=== PATIENT | female | born 1950 | race Caucasian/White ===

== ENCOUNTER 2022-11-15 20:04 | Emergency (ER) | payer MEDICARE, SELFPAY ==
[2022-11-15] VITALS (7 sets, daily range): BP systolic 166–176; BP diastolic 72–85; PULSE 64–77; RESP 15–16; TEMP 36.6–36.7; O2SAT 95–99; BMI 23.2
--- NOTE | 2022-11-15 20:28 | CT_ITS ---
PROCEDURE INFORMATION: Exam: CT Right Lower Extremity Without Contrast, Hip Exam date and time: 11/15/2022 9:23 PM Age: 72 years old Clinical indication: Pain; Hip; Right; Prior surgery; Surgery date: 6+ months; Surgery type: Skin graft; Additional info: Inability to bear weight w/o pain TECHNIQUE: Imaging protocol: CT of the right lower extremity without contrast was performed. Exam focused on the hip. 3D rendering (Not supervised by radiologist): MIP and/or 3D reconstructed images were created by the technologist. Radiation optimization: All CT scans at this facility use at least one of these dose optimization techniques: automated exposure control; mA and/or kV adjustment per patient size (includes targeted exams where dose is matched to clinical indication); or iterative reconstruction. REPORTING DATA: Count of CT and Cardiac NM exams in prior 12 months: This patient has received 0 known CTs and 0 known cardiac nuclear medicine studies in the 12 months prior to the current study. COMPARISON: CR XR HIP RT 2-3V W/PELVIS 11/15/2022 9:08 PM FINDINGS: Bones/joints: Mild osteopenia. No acute fracture or dislocation. Soft tissues: Normal. Vasculature: Calcified aortic atherosclerosis. No aneurysm. IMPRESSION: Chronic changes without acute process.
--- NOTE | 2022-11-15 20:28 | XR_ITS ---
PROCEDURE INFORMATION: Exam: XR Right Hip Exam date and time: 11/15/2022 9:08 PM Age: 72 years old Clinical indication: Hip pain; Right hip; Prior surgery; Surgery type: Skin graft; Additional info: Pain/difficulty bearing weight TECHNIQUE: Imaging protocol: Radiologic exam of the right hip. Views: 2 or 3 views hip with pelvis when performed. COMPARISON: No relevant prior studies available. FINDINGS: Bones/joints: No acute fracture. Soft tissues: Unremarkable. IMPRESSION: No acute findings.
[2022-11-15 20:46] LABS: Basophils # 0.1 K/mm3 (0-0.2); Eosinophils # 0.1 K/mm3 (0.0-0.4); Eosinophils % 2.1 % (0.1-12.0); Hemoglobin 12.9 g/dL (12.2-16.2); Lymphocytes # 1.9 K/mm3 (0.7-4.5); Lymphocytes % 27.9 % (10-50); Mean Corpuscular HGB Conc 32.4 g/dL (31.8-35.4); Mean Corpuscular Hemoglobin 28.9 pg (27.0-31.2); Mean Corpuscular Volume 89.3 fl (81-99); Mean Platelet Volume 9.4 fl (7.4-10.4); Monocytes # 0.4 K/mm3 (0.1-1.0); Monocytes % 5.3 % (1.7-9.3); Neutrophils # 4.4 K/mm3 (1.8-7.8); Neutrophils % 63.8 % (37.0-80.0); Platelet Count 185 K/mm3 (142-424); Red Blood Count 4.48 M/mm3 (4.20-5.40); Red Cell Distribution Width 13.7 % (11.5-17.5); White Blood Count 6.8 K/mm3 (4.8-10.8)
--- NOTE | 2022-11-15 20:49 | PC.NURSE ---
attempted x 2 to obtain iv access. Labs collected and sent.
[2022-11-15 20:51] LABS: Chloride 101 mmol/L (98-107); Potassium 4.2 mmoL/L (3.5-5.1); Sodium 140 mmol/L (136-145)
[2022-11-15 20:54] LABS: Alanine Aminotransferase 18 U/L (12-78); Albumin Level 4.5 g/dl (3.5-5.0); Albumin/Globulin Ratio 1.4 (1.1-1.8); Alkaline Phosphatase 40 U/L (38-126); Anion Gap 12.2 mEq/L (5-15); Aspartate Amino Transferase 35 U/L (14-36); Bilirubin,Total 0.6 mg/dl (0.2-1.3); Blood Urea Nitrogen 19 mg/dl (7-17); Carbon Dioxide 31 mmol/L (22.0-30.0); Creatinine Clearance Estimated 46 mL/min (50-200); Estimated Glomerular Filt Rate 70 ml/min (>60); GFR (African American) 85 ML/MIN (>60); Globulin 3.3 g/dL (1.3-3.2); Total Protein,Serum 7.8 g/dl (6.3-8.2)
[2022-11-15 20:55] LABS: Calcium 9.1 mg/dl (8.4-10.2); Glucose 135 mg/dl (74-100)
--- NOTE | 2022-11-15 23:43 | PC.NURSE ---
in room talking with patient at this time.
--- NOTE | 2022-11-15 23:49 | HMH.EDGENADL ---
Discharge Plan Disposition Patient Disposition: Home, Self-Care Prescriptions Prescriptions: New prednisone [prednisone] 20 mg tablet 20 mg PO BID Qty: 10 0RF No Action colestipol 5 gram Packet 5 g PO DAILYP PRN (Reason: per protocol) Referrals Follow up/Referrals: Nevin Hameed APRN [Primary Care Provider] - See instructions Clinical Impressions Clinical Impression: Acute hip pain Instructions Patient Instructions: DI for Hip Pain Discharge ED Provider: Janna (ED)Juan Manuel General Adult HPI General Chief complaint: PAIN Stated complaint: RT hip pain, forgetfulness Time Seen by Provider: 11/15/22 23:49 Mode of Arrival: Family Vehicle Source of Information: Patient, Relative and Medical Record Limitations: No Limitations Description of Symptoms (Recalled from ER Triage Doc. by RN): 72 yo female presents with chief complaint of right hip pain. According to the patient and her daughter, she attempted to turn to the right to maneuver in or out of the vehicle when she felt a significant pain that has impeded her ability to bear weight on that side. Patient is alert, oriented, reports no acute injury that she is aware of. Would like to have the hip evaluated for the pain onset and inability to maneuver. Patient daughter also mentioned that she needs to see her pcp (nevin) for short term memory issues. History of Present Illness HPI narrative: ongoing rt hip pain worse tonight with pain and dec wt bearing - no fever or fall Onset (ago): hour(s) Location: lower extremity (rt hip ) Severity: moderate Consistency: intermittent Exacerbating factors: movement Associated symptoms: denies other symptoms Related Data Home Medications Medication Instructions Recorded Confirmed colestipol 5 gram oral packet 5 g PO DAILYP PRN per protocol 11/15/22 11/15/22 Previous Rx's Medication Instructions Recorded prednisone 20 mg tablet 20 mg PO BID #10 tabs 11/15/22 Allergies Allergy/AdvReac Type Severity Reaction Status Date / Time No Known Allergies Allergy Verified 11/15/22 20:24 [facility] Disclaimer: The information contained in this section may have been updated after the patient was seen, as this information can be updated by other users. Social History Smoking Status: Never smoker alcohol intake: never current occupational status: retired Travel in the last 8 weeks: None ROS Obtained: Yes All systems reviewed & no additional complaints except as documented Physical Exam General General appearance: alert Head Head exam: normocephalic Eye Eye exam: Present PERRL and EOMI ENT ENT exam: Present mucous membranes moist Neck Neck exam: Present trachea midline Respiratory Respiratory exam: Absent respiratory distress Cardiovascular Cardiovascular exam: Present regular rate Abdominal Exam Abdominal exam: Present soft Expanded Lower Extremity Exam Right: Hip/Pelvis exam: Present tenderness, pelvis stable and hip pain on leg movement; Absent full ROM, deformity, dislocation, external rotation, internal rotation or pain on hip/pelvis palpation Neurovascular/Tendon exam: Absent pulse deficit, motor deficit or sensory deficit Neurological Exam Neurological exam: Present alert, oriented X3 and CN II-XII intact; Absent motor sensory deficit Skin Skin exam: Present intact Medical Decision Making Medical Records Medical records reviewed: Yes I reviewed the patient's medical records. Bill Inquiry Pt receiving controlled substance: No Vital Signs: 11/15/22 20:18 11/15/22 21:00 11/15/22 21:30 Temperature 98.0 F Temperature Source Oral Pulse Rate 68 65 Pulse Rate [Right Brachial] 77 Respiratory Rate 15 Blood Pressure 172/85 H 173/74 H Blood Pressure [Right Arm] 172/72 H Blood Pressure Mean 114 112 Blood Pressure Mean [Right Arm] 105 Blood Pressure Source [Right Arm] Automatic Cuff Blood Pressure Position [Right Arm] Sitting 02 Sat by
[2022-11-16 00:07] LABS: C-Reactive Protein 1.2 mg/L (0-4)
[2022-11-16 00:14] LABS: Erythrocyte Sedimentation Rate 17 mm/hr (0-30); Procalcitonin 0.066 ng/mL (0.0-2.0)
== END 2022-11-16 | disposition home or self-care (01) ==
PROVIDERS: Emergency Provider Emergency Medicine; PCP Nurse Practitioner Family
DX: M25.551 Pain in right hip (principal)
CPT/HCPCS: 73502; 73700; 80053; 84145; 85025; 85651; 86140; 96374; 96375; 99284; 99285

== ENCOUNTER → 2022-11-30 14:42 | Outpatient (CLI) | payer MEDICARE, SELFPAY ==
--- NOTE | 2022-11-30 14:49 | MR_ITS ---
FINAL REPORT CLINICAL HISTORY: PAIN IN RIGHT HIP JOINT COMPARISON: None FINDINGS: Multiplanar MR imaging of the right hip was performed with and without contrast. There is no evidence of fracture or dislocation. There is no evidence of avascular necrosis. No bony mass is identified. No labral tear is identified. Small bilateral hip joint effusions are seen. The tendons are intact. Mild increased T2 signal bilateral adductor musculature worrisome for mild muscular injury or myositis. No soft tissue mass or cyst is identified. There is no abnormal contrast enhancement. IMPRESSION: Possible muscle injury or myositis. Small bilateral hip joint effusions. Reviewed, Interpreted and Dictated by Jaron Giordano III, MD Transcribed by Sharri Sow Authenticated and [facility]
== END ==
PROVIDERS: PCP Nurse Practitioner Family; Visit Provider Nurse Practitioner Family
DX: M25.551 Pain in right hip (principal)
CPT/HCPCS: 73723; A9576

== ENCOUNTER → 2023-01-09 12:02 | Outpatient (CLI) | payer MEDICARE, SELFPAY ==
[2023-01-09 12:19] LABS: Microscopic, Urine URINE MICROSCOPIC (MICROSCOPIC)
--- NOTE | 2023-01-09 12:47 | MR_ITS ---
FINAL REPORT TECHNIQUE: Multiplanar and multisequence imaging of the brain was obtained before and after contrast injection. CLINICAL HISTORY: Rule out mass, lesion, metastasis. memory loss FINDINGS: There is no mass effect or midline shift. Small foci of periventricular and subcortical white matter are nonspecific. T2 abnormal signal noted in the uriel. No hydrocephalus. The cerebellum and brainstem have a normal appearance. There are no areas of restricted diffusion on diffusion weighted images to suggest acute infarct. Soft tissues are without acute abnormality. Post contrast images reveal no pathologic contrast enhancement. IMPRESSION: No acute intracranial abnormality and no pathologic contrast enhancement. Periventricular and subcortical T2 abnormality, likely related to changes of chronic small vessel ischemia. Findings could represent demyelinating disease but is less likely. Reviewed, Interpreted and Dictated by Nuzhat Downey MD Transcribed by Juany Singh Authenticated and . [facility]
[2023-01-09 13:05] LABS: Appearance,Urine CLEAR (Clear); Bilirubin,Urine Negative (Negative); Blood, Urine Negative (Negative); Color,Urine YELLOW (Yellow); Glucose,Urine (UA) Negative (Negative); Ketones,Urine Negative (Negative); Leukocyte Esterase,Urine 1+ (Negative); Nitrate,Urine Negative (Negative); Protein,Urine Negative (Negative); Specific Gravity, Urine 1.025 (1.005-1.030); Urobilinogen,Urine 0.2 EU/dl (0.2)
[2023-01-09 13:06] LABS: Chloride 104 mmol/L (98-107); Potassium 4.7 mmoL/L (3.5-5.1); Sodium 141 mmol/L (136-145)
[2023-01-09 13:08] LABS: Blood Urea Nitrogen 13 mg/dl (7-17); Estimated Glomerular Filt Rate 82 ml/min (>60); GFR (African American) 99 ML/MIN (>60)
[2023-01-09 13:09] LABS: Alanine Aminotransferase 21 U/L (12-78); Albumin Level 4.2 g/dl (3.5-5.0); Albumin/Globulin Ratio 1.6 (1.1-1.8); Alkaline Phosphatase 44 U/L (38-126); Anion Gap 10.7 mEq/L (5-15); Aspartate Amino Transferase 32 U/L (14-36); Bilirubin,Total 0.4 mg/dl (0.2-1.3); Calcium 9.5 mg/dl (8.4-10.2); Carbon Dioxide 31 mmol/L (22.0-30.0); Chol/HDL Ratio 3.6 (1-3.5); Cholesterol 218 mg/dl (140-200); Globulin 2.7 g/dL (1.3-3.2); Glucose 111 mg/dl (74-100); HDL Cholesterol 61 mg/dl (40-60); Total Protein,Serum 6.9 g/dl (6.3-8.2); Triglycerides 168 mg/dl (30-150); VLDL Cholesterol 34 mg/dL (0-40)
[2023-01-09 13:15] LABS: C-Reactive Protein 0.7 mg/L (0-4)
[2023-01-09 13:39] LABS: Bacteria,Urine Trace /lpf; RBC,Urine Occasional #/hpf (0-3)
[2023-01-09 13:43] LABS: Thyroid Stimulating Hormone 1.13 uIU/mL (0.465-4.68)
[2023-01-09 14:05] LABS: Basophils % 0.8 % (0.1-2.0); Eosinophils # 0.1 K/mm3 (0.0-0.4); Eosinophils % 1.8 % (0.1-12.0); Hematocrit 35.8 % (37.0-47.0); Hemoglobin 11.6 g/dL (12.2-16.2); Lymphocytes # 1.2 K/mm3 (0.7-4.5); Lymphocytes % 27.5 % (10-50); Mean Corpuscular HGB Conc 32.5 g/dL (31.8-35.4); Mean Corpuscular Hemoglobin 28.9 pg (27.0-31.2); Mean Corpuscular Volume 88.7 fl (81-99); Mean Platelet Volume 9.7 fl (7.4-10.4); Monocytes # 0.3 K/mm3 (0.1-1.0); Monocytes % 6.4 % (1.7-9.3); Neutrophils # 2.7 K/mm3 (1.8-7.8); Neutrophils % 63.5 % (37.0-80.0); Platelet Count 167 K/mm3 (142-424); Red Blood Count 4.03 M/mm3 (4.20-5.40); Red Cell Distribution Width 13.8 % (11.5-17.5); White Blood Count 4.2 K/mm3 (4.8-10.8)
[2023-01-09 14:16] LABS: Vitamin B12 163 pg/mL (239-931)
[2023-01-09 16:38] LABS: Erythrocyte Sedimentation Rate 21 mm/hr (0-30)
[2023-01-10 12:09] LABS: Rapid Plasma Reagin Ab Titer Non Reactive (NonRea<1:1)
[2023-01-22 23:45] LABS: Antinuclear Antibodies (ANA) Negative
== END ==
PROVIDERS: PCP Nurse Practitioner Family; Visit Provider Nurse Practitioner Family
DX: N39.0 Urinary tract infection, site not specified (principal); R40.0 Somnolence; R41.3 Other amnesia; Z85.43 Personal history of malignant neoplasm of ovary; I70.0 Atherosclerosis of aorta; M25.559 Pain in unspecified hip; B96.4 Proteus (mirabilis) (morganii) as the cause of diseases classified elsewhere
CPT/HCPCS: 36415; 70553; 80053; 80061; 81001; 82607; 82746; 84443; 85025; 85651; 86038; 86140; 86225; 86235; 86593; 87086; 87088; 87186; 94762; A9576

== ENCOUNTER 2024-04-02 09:32 | Emergency (ER) | payer MEDICARE, SELFPAY ==
[2024-04-02] VITALS (9 sets, daily range): BP systolic 182–195; BP diastolic 68–94; PULSE 50–66; RESP 13; TEMP 36.7–36.8; O2SAT 98–100; BMI 23.8
--- NOTE | 2024-04-02 09:44 | PC.NURSE ---
DR LAM AT BEDSIDE
[2024-04-02 10:10] LABS: Chloride 108 mmol/L (98-107); Sodium 139 mmol/L (136-145)
[2024-04-02 10:12] LABS: Alanine Aminotransferase 17 U/L (12-78); Aspartate Amino Transferase 33 U/L (14-36); Blood Urea Nitrogen 18 mg/dl (7-17); Creatinine Clearance Estimated 45 mL/min (50-200); Estimated Glomerular Filt Rate 82 ml/min (>60); GFR (African American) 99 ML/MIN (>60)
[2024-04-02 10:13] LABS: Albumin/Globulin Ratio 1.4 (1.1-1.8); Alkaline Phosphatase 49 U/L (38-126); Bilirubin,Total 0.7 mg/dl (0.2-1.3); Carbon Dioxide 29 mmol/L (22.0-30.0); Globulin 2.8 g/dL (1.3-3.2); Glucose 86 mg/dl (74-100); Magnesium 1.9 mg/dl (1.6-2.3); Total Protein,Serum 6.8 g/dl (6.3-8.2)
[2024-04-02 10:14] LABS: Microscopic, Urine URINE MICROSCOPIC (MICROSCOPIC)
--- NOTE | 2024-04-02 10:15 | ECG_ITS ---
APPROVED REPORT Exam: Resting ECG HR:48 bpm ECG Measurements Heart Rate 48 AXES WY 136 P 71 QRSd 103 QRS 75 QT 453 T 76 QTc 421 Conclusion SINUS BRADYCARDIA ABNORMAL ECG Electronically signed by : Latrell Negrete, 04/02/2024 16:13:10
[2024-04-02 10:18] LABS: Basophils # 0.1 K/mm3 (0-0.2); Basophils % 1.1 % (0.1-2.0); Eosinophils # 0.1 K/mm3 (0.0-0.4); Eosinophils % 1.7 % (0.1-12.0); Hematocrit 38.4 % (37.0-47.0); Hemoglobin 12.7 g/dL (12.2-16.2); Lymphocytes # 1.1 K/mm3 (0.7-4.5); Lymphocytes % 23.7 % (10-50); Mean Corpuscular Hemoglobin 29.8 pg (27.0-31.2); Mean Corpuscular Volume 90.5 fl (81-99); Mean Platelet Volume 9.8 fl (7.4-10.4); Monocytes # 0.3 K/mm3 (0.1-1.0); Monocytes % 6.9 % (1.7-9.3); Neutrophils % 66.6 % (37.0-80.0); Platelet Count 178 K/mm3 (142-424); Red Blood Count 4.25 M/mm3 (4.20-5.40); Red Cell Distribution Width 13.9 % (11.5-17.5); White Blood Count 4.6 K/mm3 (4.8-10.8)
[2024-04-02 10:21] LABS: Appearance,Urine CLEAR (Clear); Bilirubin,Urine Negative (Negative); Blood, Urine Negative (Negative); Color,Urine YELLOW (Yellow); Glucose,Urine (UA) Negative (Negative); Ketones,Urine Negative (Negative); Leukocyte Esterase,Urine 1+ (Negative); Nitrate,Urine Negative (Negative); Protein,Urine Negative (Negative); Urobilinogen,Urine 0.2 EU/dl (0.2)
--- NOTE | 2024-04-02 10:21 | HMH.EDGENADL ---
Discharge Plan Disposition Patient Disposition: Home, Self-Care Condition: Good Prescriptions Prescriptions: No Action colestipol 5 gram Packet 5 g PO DAILYP PRN (Reason: per protocol) Activity Restrictions/Add. Instructions Additional Instructions/Restrictions: Wear your Holter monitor and follow up results with your distributor publications. Stay well hydrated. Return to the ED if you develop chest pain, shortness of breath, or become concerned for your health. Please follow up with your primary care provider in 2-3 days. Please return to ED if your symptoms worsen, change in location, change in severity, new symptoms develop or if you become concerned for your health. Clinical Impressions Clinical Impression: Syncope Print Language Print Language: Czech Discharge ED Provider: Latrell Negrete General Adult HPI General Chief complaint: Fall Stated complaint: DIZZINESS Time Seen by Provider: 04/02/24 09:37 Mode of Arrival: EMS Source of Information: Patient Limitations: No Limitations Description of Symptoms (Recalled from ER Triage Doc. by RN): pt presents to ED via EMS for fall. pt reports that she began to feel dizzy, knew that she needed to sit down, was able to sit down before falling. pt was able to crawl to door to unlock it for her daughter to come into house. pt reports she does not remember falling, and did not hit her head. no loc, unknown blood thinner per pt report. History of Present Illness HPI narrative: Patient is a 74-year-old female no significant past medical history. She reports that this morning, she had a syncopal episode. She was sitting on the couch watching TV and stood up quickly to get something from the kitchen to drink as she realized that she had not eaten or drinking anything yet this morning. As she stood up, she began to feel lightheaded and have tunnel vision. She sat back down and began to feel fuzzy for a short time. She was able to crawl to the door and unlock it and open it and crawl back to the couch. She is unsure if she actually lost consciousness or not. She denies hitting her head, does not take any blood thinners. She denies any chest pain, shortness of breath, numbness, weakness, tingling, vision changes immediately preceding or after this incident. She is never experienced this before. Related Data Home Medications ?Medication ?Instructions ?Recorded ?Confirmed colestipol 5 gram oral packet 5 g PO DAILYP PRN per protocol 11/15/22 01/24/23 Allergies Allergy/AdvReac Type Severity Reaction Status Date / Time No Known Allergies Allergy Verified 01/24/23 15:07 [facility] Disclaimer: The information contained in this section may have been updated after the patient was seen, as this information can be updated by other users. Family History (Updated 12/13/22 @ 15:16 by Carina Cannon) Other Coronary artery disease Diabetes Heart attack Stroke Social History (Updated 12/13/22 @ 15:17 by Carina Cannon) Smoking Status: Never smoker alcohol intake: never substance use type: denies use current occupational status: retired Travel in the last 8 weeks: None household members: other housing: house marital status: ROS Obtained: Yes All systems reviewed & no additional complaints except as documented Physical Exam General General appearance: alert and in no apparent distress Head Head exam: atraumatic and normocephalic Eye Eye exam: Present PERRL and EOMI ENT ENT exam: Present normal oropharynx Neck Neck exam: Present full ROM and trachea midline Chest Chest inspection: Present symmetric chest wall rise Respiratory Respiratory exam: Present normal lung sounds bilaterally; Absent stridor Cardiovascular Cardiovascular exam: Present regular rate and normal rhythm Abdominal Exam Abdominal exam: Present soft; Absent distention or tenderness Extremities Exam Extremities exam: Present full ROM Neurological Exam Neurological exa
[2024-04-02 10:23] LABS: INR 0.92 (0.9-1.1); Prothrombin Time 10.4 seconds (10.1-12.5)
[2024-04-02 10:25] LABS: Troponin I < 0.01 ng/ml (0.00-0.034)
[2024-04-02 10:41] LABS: Bacteria,Urine Trace /lpf; Squamous Epithelial Cell,Urine Occasional #/hpf (0-5)
--- NOTE | 2024-04-02 10:49 | PC.NURSE ---
caitlin brown rounding on pt
== END 2024-04-02 12:25 | disposition home or self-care (01) ==
PROVIDERS: Emergency Provider Emergency Medicine; PCP Nurse Practitioner Family
DX: R55 Syncope and collapse (principal); R00.1 Bradycardia, unspecified; R42 Dizziness and giddiness
CPT/HCPCS: 80053; 81001; 83735; 84484; 85025; 85610; 87086; 93005; 93225; 93227; 99284; J7030

== ENCOUNTER 2025-07-25 12:01 | Inpatient (IN) | payer MEDICARE, SELFPAY ==
[2025-07-25] VITALS (13 sets, daily range): BP systolic 155–221; BP diastolic 79–93; PULSE 52–65; RESP 12–18; TEMP 36.5–36.8; O2SAT 90–100; BMI 23.6; BMI 20.9
--- OUTSIDE RECORDS SUMMARY | 2025-07-25 12:13 | XMS_ITS | Encounter Summary ---
Author Organization [facility] Address [address] [id number] Care Team Providers Care [employer] Name Role Phone Gita Hameed VETERINARY EPIDEMIOLOGIST Primary Care Provider [phone] Reason for Referral * Consultation (Routine) - Closed Specialty Diagnoses / Procedures Referred By Tosha nagy Referred To Contact Neurology Diagnoses Memory loss Nehemiah Odom APRN [address] [place] [address] Phone: tel: fax: [facility] [place] [facility] [address] [place] [id number] Phone: tel: fax: Referral ID Status Reason Start Date Expiration Date V isits Requested Visits Authorized [id number] Closed Specialty Services Required 01/25/2023 07/26/2024 1 1 Encounter Details Date Type Department Care Team (Late st Contact Info) Description 01/25/2023 Community Orders Community Practice [address] [place] [address] Nehemiah Odom APRN [address] [place] [address] Memory loss (Primary Dx) Social History Tobacco Use Types Packs/Day Years Used Date Smoking Tobacco: Never Assessed Comments Unknown Sex and Gender Information Value Date Recorded Sex Assigned at Not on file Legal Sex Female 8:41 AM EDT Gender Identity Not on file Sexual Orientation Not on file documented as of this encounter Plan of Treatment Scheduled Referrals Name Type Priority Associated Diagnoses Order Schedule Ambulatory referral to Neurology Memory Clinic Outpatient Referral Routine Memory loss Expected: 01/25/2023 (Approximate), Expires: 07/27/2024 documented as of this encounter Visit Diagnoses Diagnosis Memory loss- Primary documented in this encounter Care Teams [employer] Relationship Specialty Start Date End Date Gita Hameed APRN [address] [place] [address] PCP - General 05/09/24 documented as of this encounter
--- OUTSIDE RECORDS SUMMARY | 2025-07-25 12:13 | XMS_ITS | Data Portability ---
Author Organization [facility] Address [address] [place] [address] Care Team Providers Care Wire Annealer Name Role Phone BANDAR CORBYLAMBERTOAlexandria Primary Care Provider [phone] Assessment No assessment recorded. Plan of Treatment Reminders Order Date Submit Date Provider Last Modified By Organization Details Last Modified Time Details Appointments None recorded. Lab BNP (B-type natriuretic peptide), serum or plasma 2024 025 JAMES [facility], [address], [address], [place], [address], 5 10:08:05 CMP, serum or plasma 2024 025 JAMES [facility], [address], [address], [place], [address], 5 10:08:03 TSH + free T4, serum 2024 025 JAMES [facility], [address], [address], [place], [address], 5 10:08:02 renal function panel, serum 2024 025 JAMES [facility], [address], [address] [address], [place], [address], 5 10:08:04 glucose, fingerstick , blood 2023 024 [facility], [address] [facility], [place], [address], 4 09:39:35 CMP, serum or plasma 2023 JENKINS [facility], [address], [address], [place], [address], 4 00:06:19 urinalysis, dipstick 2023 [facility], [address] [place] [address], [id number], 4 12:18:57 culture, urine 2023 024 JENKINS [facility], [address], [address], [place], [address], 4 00:06:19 CBC w/ auto diff 2023 024 JENKINS [facility], [address], [address] [address], [place], [address], 4 00:06:18 Referral None recorded. Procedures None recorded. Surgeries None recorded. Imaging electrocard iogram 2023 [facility], [address] [place] [address], [phone], 4 10:01:30 Medication Orders Normal Saline Flush 0.9 % injection syringe 2023 024 sofialer Not available 11:02:22 levofloxaci n 500 mg tablet 2023 [facility] [id number], [address] [place] [address], [address], 4 08:45:32 Patient TargetsNo targets recorded. Patient Instructions Encounter Date Encounter Id Patient Instructions Last Modified By Organization Details Last Modified Time 02/19/2024 [id number] leg and ankle edema: care instructions rosendo Not available 02/19/2024 11:38:29 Reason for Referral None Reported. Results Created Date Observation Date Name Description Value Unit Range Abnormal Flag Note LastModifiedBy Organization Detail LastModifiedTime 01/26/20 24 01/30/2024 URINE CULTU RE, ROUTI NE urine culture, routine Final report abnormal Not Available [facility] ([facility]) [address] [facility], [place], [address], 01/30/2024 15:08:01 01/26/20 24 01/30/2024 URINE CULTU RE, ROUTI NE result 1 Klebsi jerald oxytoc a abnormal 10,00 0-25, 000 colon y formi ng units per mL Not Available [facility] ([facility]) [address] [facility], [place], [address], 01/30/2024 15:08:01 01/26/20 24 01/30/2024 URINE CULTU RE, ROUTI NE antimicrobia l susceptibili ty Commen t S = Susce ptibl e; I = Inter media te; R = Resis tant P = Posit rema; N = Negat rema MICS are expre ssed in micro grams per mL Antib iotic RSLT# 1 RSLT# 2 RSLT# 3 RSLT# 4 Amoxi cilli n/Cla vulan ic Acid S Ampic illin R Cefaz erik R Cefep luther S Ceftr iaxon e S Cefur oxime S Cipro floxa daisha S Genta micin S Imipe nem S Levof loxac in S Merop enem S Nitro furan toin S Tetra cycli ne S Tobra mycin S Trime thopr im/Guzman lfa S Not Available [facility] ([facility]) [address] [facility], [place], [address], 01/30/2024 15:08:01 01/26/20 24 01/26/2024 urina lysis , dipst ick Leukocytes Small Not Available Andrea [address], [address], 01/26/2024 10:12:42 01/26/20 24 01/26/2024 urina lysis , dipst ick Nitrite negati ve Not Available [address], [address], 01/26/2024 10:12:42 01/26/20 24 01/26/2024 urina lysis , dipst ick Urobilinogen .2 Not Available To[address]ito [address], [address], 01/26/2024 10:12:42 01/26/20 24 01/26/2024 urina lysis , dipst ick Protein Negati ve Not Available [address], [address], 01/26/2024 10:12:42 01/26/20 24 01/26/2024 urina lysis , dipst ick pH 5.5 Not Available [address], [address], 01/26/2024 10:12:42 01/26/20 24 01/26/2024 urina lysis , dipst ick Blood Negati ve Not Available [address], [address], 01/26/2024 10:12:42 01/26/20 24 01/26/2024 urina lysis , dipst ick Specific [place] 1.010 Not Available [address], [address], 01/26/2024 10:12:42 01/26/20 24 01/26/2024 urina lysis , dipst ick Ketone Negati ve Not Available [address], [address], 01/26/2024 10:12:42 01/26/20 24 01/26/2024 urina lysis , dipst ick Bilirubin Negati ve Not Available [address], [address], 01/26/2024 10:12:42 01/26/20 24 01/26/2024 urina lysis , dipst ick Glucose Negati ve Not Available [address], [address], 01/26/2024 10:12:42 01/26/20 24 01/26/2024 urina lysis , dipst ick Appearance Clear Not Available [address], [address], 01/26/2024 10:12:42 01/26/20 24 01/26/2024 urina lysis , dipst ick Color Yellow Not Available [address], [address], 01/26/2024 10:12:42 02/19/20 24 02/20/2024 CBC WITH DIFFE RENTI AL/PL ATELE T WBC 4.4 x10e3 /uL 3.4-10 .8 Not Available [facility] ([facility]) [address] [place], [address], 02/21/2024 00:06:18 02/19/20 24 02/20/2024 CBC WITH DIFFE RENTI AL/PL ATELE T RBC 4.30 x10e6 /uL 3.77-5 .28 Polyc hroma alexandra prese nt Ovalo cytes prese nt. Not Available [facility] ([facility]) [address] [facility], [place], [address], 02/21/2024 00:06:18 02/19/20 24 02/20/2024 CBC WITH DIFFE RENTI AL/PL ATELE T hemoglobin 12.3 g/dL 11.1-1 5.9 Not Available [facility] ([facility]) [address] [facility], [place], [address], 02/21/2024 00:06:18 02/19/20 24 02/20/2024 CBC WITH DIFFE RENTI AL/PL ATELE T hematocrit 39.6 % 34.0-4 6.6 Not Available [facility] ([facility]) [address] [facility], [place], [address], 02/21/2024 00:06:18 02/19/20 24 02/20/2024 CBC WITH DIFFE RENTI AL/PL ATELE T MCV 92 fL 79-97 Not Available [facility] ([facility]) [address] [facility], [place], [address], 02/21/2024 00:06:18 02/19/20 24 02/20/2024 CBC WITH DIFFE RENTI AL/PL ATELE T MCH 28.6 pg 26.6-3 3.0 Not Available [facility] ([facility]) [address] [place], [address], 02/21/2024 00:06:18 02/19/2002/20/2024 CBC WITH DIFFE RENTI AL/PL ATELE T MCHC 31.1 g/dL 31.5-3 5.7 below low normal Not Available [facility] ([facility]) [address] [place], [address], 02/21/2024 00:06:18 02/19/20 24 02/20/2024 CBC WITH DIFFE RENTI AL/PL ATELE T RDW 13.1 % 11.7-1 5.4 Not Available [facility] ([facility]) [address] [place], [address], 02/21/2024 00:06:18 02/19/20 24 02/20/2024 CBC WITH DIFFE RENTI AL/PL ATELE T platelets 133 x10e3 /uL 150-45 0 below low normal Actua l plate let count may be somew hat highe r than repor amelia due to aggre gatio n of plate lets in this sampl e. Not Available [facility] ([facility]) [address] [facility], [place], [address], 02/21/2024 00:06:18 02/19/20 24 02/20/2024 CBC WITH DIFFE RENTI AL/PL ATELE T neutrophils 64 % not estab. Not Available [facility] ([facility]) [address] [facility], [place], [address], 02/21/2024 00:06:18 02/19/20 24 02/20/2024 CBC WITH DIFFE RENTI AL/PL ATELE T lymphs 24 % not estab. Not Available [facility] ([facility]) [address] [facility], [place], [address], 02/21/2024 00:06:18 02/19/20 24 02/20/2024 CBC WITH DIFFE RENTI AL/PL ATELE T monocytes 9 % not estab. Not Available [facility] ([facility]) [address] [facility], [place], [address], 02/21/2024 00:06:18 02/19/20 24 02/20/2024 CBC WITH DIFFE RENTI AL/PL ATELE T eos 2 % not estab. Not Available [facility] ([facility]) [address] [facility], [place], [address], 02/21/2024 00:06:18 02/19/20 24 02/20/2024 CBC WITH DIFFE RENTI AL/PL ATELE T basos 1 % not estab. Not Available [facility] ([facility]) [address] [facility], [place], [address], 02/21/2024 00:06:18 02/19/20 24 02/20/2024 CBC WITH DIFFE RENTI AL/PL ATELE T immature cells MANAGER DATA Not Available [facility] ([facility]) [address] [facility], [place], [address], 02/21/2024 00:06:18 02/19/20 24 02/20/2024 CBC WITH DIFFE RENTI AL/PL ATELE T neutrophils (absolute) 2.8 x10e3 /uL 1.4-7. 0 Not Available [facility] ([facility]) [address] [facility], [place], [address], 02/21/2024 00:06:18 02/19/20 24 02/20/2024 CBC WITH DIFFE RENTI AL/PL ATELE T lymphs (absolute) 1.0 x10e3 /uL 0.7-3. 1 Not Available [facility] ([facility]) [address] [facility], [place], [address], 02/21/2024 00:06:18 02/19/20 24 02/20/2024 CBC WITH DIFFE RENTI AL/PL ATELE T monocytes(ab solute) 0.4 x10e3 /uL 0.1-0. 9 Not Available [facility] ([facility]) [address] [facility], [place], [address], 02/21/2024 00:06:18 02/19/20 24 02/20/2024 CBC WITH DIFFE RENTI AL/PL ATELE T eos (absolute) 0.1 x10e3 /uL 0.0-0. 4 Not Available [facility] ([facility]) [address] [facility], [place], [address], 02/21/2024 00:06:18 02/19/20 24 02/20/2024 CBC WITH DIFFE RENTI AL/PL ATELE T baso (absolute) 0.1 x10e3 /uL 0.0-0. 2 Not Available [facility] ([facility]) [address] [facility], [place], [address], 02/21/2024 00:06:18 02/19/20 24 02/20/2024 CBC WITH DIFFE RENTI AL/PL ATELE T immature granulocytes 0 % not estab. Not Available [facility] ([facility]) [address] [facility], [place], [address], 02/21/2024 00:06:18 02/19/20 24 02/20/2024 CBC WITH DIFFE RENTI AL/PL ATELE T immature grans (abs) 0.0 x10e3 /uL 0.0-0. 1 Not Available [facility] ([facility]) [address] [facility], [place], [address], 02/21/2024 00:06:18 02/19/20 24 02/20/2024 CBC WITH DIFFE RENTI AL/PL ATELE T NRBC MANAGER DATA Not Available [facility] ([facility]) [address] [facility], [place], [address], 02/21/2024 00:06:18 02/19/20 24 02/20/2024 CBC WITH DIFFE RENTI AL/PL ATELE T hematology comments: Note: Verif ied by coby moya nSunita Not Available [facility] ([facility]) [address] [facility], [place], [address], 02/21/2024 00:06:18 02/19/20 24 02/20/2024 COMP. METAB OLIC PANEL (14) glucose 83 mg/dL 70-99 Not Available [facility] ([facility]) [address] [facility], [place], [address], 02/21/2024 00:06:19 02/19/20 24 02/20/2024 COMP. METAB OLIC PANEL (14) BUN 7 mg/dL 8-27 below low normal Not Available [facility] ([facility]) [address] [facility], [place], [address], 02/21/2024 00:06:19 02/19/20 24 02/20/2024 COMP. METAB OLIC PANEL (14) creatinine 0.67 mg/dL 0.57-1 .00 Not Available [facility] ([facility]) [address] [place], [address], 02/21/2024 00:06:19 02/19/20 24 02/20/2024 COMP. METAB OLIC PANEL (14) eGFR 91 mL/mi n/1.7 3 >59 Not Available [facility] ([facility]) [address] [place], [address], 02/21/2024 00:06:19 02/19/20 24 02/20/2024 COMP. METAB OLIC PANEL (14) BUN/creatini ne ratio 10 12-28 below low normal Not Available [facility] ([facility]) [address] [place], [address], 02/21/2024 00:06:19 02/19/20 24 02/20/2024 COMP. METAB OLIC PANEL (14) sodium 142 mmol/ L 134-14 4 Not Available [facility] ([facility]) [address] [place], [address], 02/21/2024 00:06:19 02/19/20 24 02/20/2024 COMP. METAB OLIC PANEL (14) potassium 3.7 mmol/ L 3.5-5. 2 Not Available [facility] ([facility]) [address] [facility] [place] [place], [address], 02/21/2024 00:06:19 02/19/20 24 02/20/2024 COMP. METAB OLIC PANEL (14) chloride 104 mmol/ L 96-106 Not Available [facility] ([facility]) [address] [facility] [place], [address], 02/21/2024 00:06:19 02/19/20 24 02/20/2024 COMP. METAB OLIC PANEL (14) carbon dioxide, total 25 mmol/ L 20-29 Not Available [facility] ([facility]) [address] [facility] [place] [place], [address], 02/21/2024 00:06:19 02/19/20 24 02/20/2024 COMP. METAB OLIC PANEL (14) calcium 9.6 mg/dL 8.7-10 .3 Not Available [facility] ([facility]) [address], [place], [address], 02/21/2024 00:06:19 02/19/20 24 02/20/2024 COMP. METAB OLIC PANEL (14) protein, total 6.8 g/dL 6.0-8. 5 Not Available [facility] ([facility]) [address], [place], [address], 02/21/2024 00:06:19 02/19/20 24 02/20/2024 COMP. METAB OLIC PANEL (14) albumin 4.3 g/dL 3.8-4. 8 Not Available [facility] ([facility]) [address], [place], [address], 02/21/2024 00:06:19 02/19/20 24 02/20/2024 COMP. METAB OLIC PANEL (14) globulin, total 2.5 g/dL 1.5-4. 5 Not Available [facility] ([facility]) [address], [place], [address], 02/21/2024 00:06:19 02/19/20 24 02/20/2024 COMP. METAB OLIC PANEL (14) bilirubin, total 0.4 mg/dL 0.0-1. 2 Not Available [facility] ([facility] [address] [facility] [place] [place], [address], 02/21/2024 00:06:19 02/19/20 24 02/20/2024 COMP. METAB OLIC PANEL (14) alkaline phosphatase 56 IU/L 44-121 Not Available [facility] ([facility]) [address] [facility], [place], [address], 02/21/2024 00:06:19 02/19/20 24 02/20/2024 COMP. METAB OLIC PANEL (14) AST (SGOT) 17 IU/L 0-40 Not Available [facility] ([facility]) [address] [facility], [place], [address], 02/21/2024 00:06:19 02/19/20 24 02/20/2024 COMP. METAB OLIC PANEL (14) ALT (SGPT) 10 IU/L 0-32 Not Available [facility] ([facility]) [address] [facility], [place], [address], 02/21/2024 00:06:19 02/19/20 24 02/20/2024 URINE CULTU RE, ROUTI NE urine culture, routine Final report Not Available [facility] ([facility]) [address] [place], [address], 02/21/2024 00:06:19 02/19/20 24 02/20/2024 URINE CULTU RE, ROUTI NE result 1 COMMEN T Cultu re shows less than 10,00 0 colon y formi ng units of bacte padmini per pili liter of urine . This colon y count is not gener ally consi dered to be clini liborio signi fican t. Not Available [facility] ([facility]) [address] [place], [address], 02/21/2024 00:06:19 02/19/20 24 02/19/2024 urina lysis , dipst ick Leukocytes Trace Not Available [address], [address], 02/19/2024 11:08:55 02/19/20 24 02/19/2024 urina lysis , dipst ick Nitrite negati ve Not Available [address], [address], 02/19/2024 11:08:55 02/19/20 24 02/19/2024 urina lysis , dipst ick Urobilinogen .2 Not Available [place] [address], [address], 02/19/2024 11:08:55 02/19/20 24 02/19/2024 urina lysis , dipst ick Protein Negati ve Not Available [address], [address], 02/19/2024 11:08:55 02/19/20 24 02/19/2024 urina lysis , dipst ick pH 6.5 Not Available [address], [address], 02/19/2024 11:08:55 02/19/20 24 02/19/2024 urina lysis , dipst ick Blood Negati ve Not Available [address], [address], 02/19/2024 11:08:55 02/19/20 24 02/19/2024 urina lysis , dipst ick Specific [place] 1.015 Not Available [address], [address], 02/19/2024 11:08:55 02/19/20 24 02/19/2024 urina lysis , dipst ick Ketone Negati ve Not Available [address], [address], 02/19/2024 11:08:55 02/19/20 24 02/19/2024 urina lysis , dipst ick Bilirubin Negati ve Not Available [address], [address], 02/19/2024 11:08:55 02/19/20 24 02/19/2024 urina lysis , dipst ick Glucose Negati ve Not Available [address], [address], 02/19/2024 11:08:55 02/19/20 24 02/19/2024 urina lysis , dipst ick Appearance Clear Not Available [address], [address], 02/19/2024 11:08:55 02/19/20 24 02/19/2024 urina lysis , dipst ick Color Yellow Not Available [address], [address], 02/19/2024 11:08:55 04/02/20 24 04/02/2024 gluco se, finge rstic k, blood Blood Glucose: mg/dl 82 Not Available [address], [address], 04/02/2024 09:10:19 04/02/20 24 04/02/2024 gluco se, finge rstic k, blood Reference Range (60-100) normal Not Available [address], [address], 04/02/2024 09:10:19 12/24/19 25 12/24/2024 TSH+F REE T4 TSH 1.220 uIU/m L 0.450- 4.500 normal Not Available [facility] ([facility]) [address] [place], [address], 12/24/2024 10:08:02 12/24/19 25 12/24/2024 TSH+F REE T4 T4,free(dire ct) 0.99 NG/dL 0.82-1 .77 normal Not Available [facility] ([facility]) [address] [facility] [facility] [place], [address], 12/24/2024 10:08:02 12/24/19 25 12/24/2024 COMP. METAB OLIC PANEL (14) glucose 112 mg/dL 70-99 above high normal Not Available [facility] ([facility]) [address] [facility] [place], [address], 12/24/2024 10:08:03 12/24/19 25 12/24/2024 COMP. METAB OLIC PANEL (14) BUN 13 mg/dL 8-27 normal Not Available [facility] ([facility]) [address] [facility] [place] [place], [address], 12/24/2024 10:08:03 12/24/19 25 12/24/2024 COMP. METAB OLIC PANEL (14) creatinine 0.64 mg/dL 0.57-1 .00 normal Not Available [facility] ([facility]) [address] [facility] [place] [place], [address], 12/24/2024 10:08:03 12/24/19 25 12/24/2024 COMP. METAB OLIC PANEL (14) eGFR 92 mL/mi n/1.7 3 >59 normal Not Available [facility] ([facility]) [address] [facility] [place], [address], 12/24/2024 10:08:03 12/24/19 25 12/24/2024 COMP. METAB OLIC PANEL (14) BUN/creatini ne ratio 20 12-28 normal Not Available [facility] ([facility]) [address] [facility] [place], [address], 12/24/2024 10:08:03 12/24/19 25 12/24/2024 COMP. METAB OLIC PANEL (14) sodium 144 mmol/ L 134-14 4 normal Not Available [facility] ([facility]) [address] [facility] [place], [address], 12/24/2024 10:08:03 12/24/19 25 12/24/2024 COMP. METAB OLIC PANEL (14) potassium 4.0 mmol/ L 3.5-5. 2 normal Not Available [facility] ([facility]) [address] [facility], [place], [address], 12/24/2024 10:08:03 12/24/19 25 12/24/2024 COMP. METAB OLIC PANEL (14) chloride 103 mmol/ L 96-106 normal Not Available [facility] ([facility]) [address] [facility], [place], [address], 12/24/2024 10:08:03 12/24/19 25 12/24/2024 COMP. METAB OLIC PANEL (14) carbon dioxide, total 27 mmol/ L 20-29 normal Not Available [facility] ([facility]) [address] [facility], [place], [address], 12/24/2024 10:08:03 12/24/19 25 12/24/2024 COMP. METAB OLIC PANEL (14) calcium 9.9 mg/dL 8.7-10 .3 normal Not Available [facility] ([facility]) [address] [place], [address], 12/24/2024 10:08:03 12/24/19 25 12/24/2024 COMP. METAB OLIC PANEL (14) protein, total 6.4 g/dL 6.0-8. 5 normal Not Available [facility] ([facility]) [address] [place], [address], 12/24/2024 10:08:03 12/24/19 25 12/24/2024 COMP. METAB OLIC PANEL (14) albumin 4.2 g/dL 3.8-4. 8 normal Not Available [facility] ([facility]) [address] [facility], [place], [address], 12/24/2024 10:08:03 12/24/19 25 12/24/2024 COMP. METAB OLIC PANEL (14) globulin, total 2.2 g/dL 1.5-4. 5 Not Available [facility] ([facility]) [address] [place], [address], 12/24/2024 10:08:03 12/24/19 25 12/24/2024 COMP. METAB OLIC PANEL (14) bilirubin, total 0.3 mg/dL 0.0-1. 2 normal Not Available [facility] ([facility]) [address] [place], [address], 12/24/2024 10:08:03 12/24/19 25 12/24/2024 COMP. METAB OLIC PANEL (14) alkaline phosphatase 60 IU/L 44-121 normal Not Available [facility] ([facility]) [address] [place], [address], 12/24/2024 10:08:03 12/24/19 25 12/24/2024 COMP. METAB OLIC PANEL (14) AST (SGOT) 17 IU/L 0-40 normal Not Available [facility] ([facility]) [address] [place], [address], 12/24/2024 10:08:03 12/24/19 25 12/24/2024 COMP. METAB OLIC PANEL (14) ALT (SGPT) 10 IU/L 0-32 normal Not Available [facility] ([facility]) [address] [place], [address], 12/24/2024 10:08:03 12/24/19 25 12/24/2024 RENAL PANEL (10) phosphorus 3.1 mg/dL 3.0-4. 3 normal Not Available [facility] ([facility]) [address] [place], [address], 12/24/2024 10:08:04 12/24/19 25 12/24/2024 B-TYP E NATRI URETI C PEPTI DE B-type natriuretic peptide 42.0 pg/mL 0.0-10 0.0 Sieme ns AD[facility] Cent[facility] XP metho dolog y Not Available [facility] ([facility]) [address] [facility], [place], [address], 12/24/2024 10:08:05 04/02/20 24 04/02/2024 elect rocar diogr am No observ ation record ed. [email or web address] [address], [address], 04/02/2024 10:01:36 04/02/20 24 04/02/2024 elect rocar diogr am No observ [facility]ion [facility] [address], [place], [address], 04/02/2024 16:23:52 04/05/20 24 04/02/2024 elect rocar diogr am No observ ation record ed. [email or web address] [address], [address], 04/17/2024 10:42:39 05/28/20 24 05/28/2024 jessie r monit or No observ ation record ed. [email or web address] [address], [place], [address], 06/03/2024 13:59:24 Result Notes None recorded. Problems Name Problem SNOMED Code Status Onset Date Resolution Date Notes Provider Name and Address Organization Details Recorded Time Diverticulosis of colon 916757391 Active 2019 Gita Hameed, [employer] MANAGER [address], [place], [address], [place] - [facility] 2 13:49:54 Chronic diarrhea 518197511 Active 2019 Gita Hameed, GENER[employer] MANAGER [address], [place], [address], [place] - [facility] 2 13:49:50 History of malignant neoplasm of ovary 880693134 Active 2019 Gita Hameed, GENER[employer] MANAGER [address], [place], [address], [place] [facility] 2 13:49:57 Intolerance to lactose 758675988 Active 2021 Gita Hameed, GENERAL [employer] MANAGER [address], [place], [address], [place] - [facility] 2 13:50:00 Alzheimer's disease 92299983 Active 2024 Lorena Stears null, [place] - [facility] 5 13:49:00 Dementia 95864140 Active 2024 Lorena Stears null, [place] - [facility] 5 13:49:40 Problem Notes None recorded. Procedures Surgical History Date Name Laterality Status Provider Name and Address Organization Details Recorded Time 04/02/20 24 IV Infusion completed Yomaira Caicedo [place] - [facility] 04/02/2024 08:56:37 06/06/20 23 Date of Last Colonoscopy completed Yomaira Caicedo [place] - [facility] 07/19/2023 09:17:56 06/06/20 23 colonoscopy completed Lorena Stears [place] - [facility] 12/28/2023 15:03:16 03/10/20 23 IV Infusion completed Yomaira Caicedo [place] [facility] 03/10/2023 10:26:21 02/25/20 23 Medication Reconcilliation completed Lorena Stears [place] [facility] 02/24/2023 10:58:39 11/22/19 23 Medication Reconcilliation completed Yomaira Caicedo [place] [facility] 11/21/2022 11:36:22 07/07/20 21 Cryosurgery Dermatology completed Radha Tariq, [employer] [address], [place], [id number], [place] - [facility] 07/07/2021 14:45:48 03/15/20 21 Date of Last Mammogram completed Fabiola Baker [place] - [facility] 04/05/2021 08:09:01 08/18/19 21 Advance Care Planning completed Fabiola Baker [place] [facility] 08/18/2020 09:02:59 08/18/19 21 Systolic B/P less than 130 mm Hg completed Fabiola Baker [place] - [facility] 08/18/2020 09:21:21 08/18/19 21 Diastolic B/P less than 80 mm Hg completed Fabiola WALDR[place] - [facility] 08/18/2020 09:21:25 08/18/19 21 Medication Reconcilliation completed Fabiola WALDRON - [facility] 08/18/2020 09:21:30 08/18/19 21 Functional Status Assessed completed Fabiola WALDRON - [facility] 08/18/2020 09:02:59 Hysterectomy completed Fabiola Baker [place] - [facility] 06/18/2020 11:56:07 Salpingo-oophorect muriel, Bilateral completed Fabiola WALDRON - [facility] 06/18/2020 11:56:16 graft of skin to skin completed Fabiola WALDRON - [facility] 06/18/2020 11:59:27 biopsy completed Lorena Canelas [place] - [facility] 02/24/2023 11:04:30 Imaging Results None recorded. Procedure Notes None recorded. Medical Equipment None Reported. Allergies Allergen ID Allergen Name Allergen Category Reaction Reaction Severity Criticality Documentation Date Start Date Code Code System Note Provider Name and Address Organization Details Recorded Time 089016 lactose food,medi cation Not available Not available Not available 02/08/2022 6211 RxNorm Lorena Stears null, [place] - [facility] 12:03:14 Medications Name Sig Start Date Stop Date Status Note LastModified by Organization Details LastModified Time Normal Saline Flush 0.9 % injection syringe Take 10 mL by injection route. 05/09 completed Not Available Not Available Not Available donepezil 10 mg tablet TAKE ONE (1) TABLET (10 MG) BY MOUTH EVERY NIGHT. 12/23 completed Not Available Not Available Not Available prednisone 20 mg tablet Take 1 tablet twice a day by oral route for 5 days. 01/12 completed Not Available Not Available Not Available alendronate 70 mg tablet TAKE ONE (1) TABLET EVERY WEEK BY ORAL ROUTE. 02/08 completed Not Available Not Available Not Available sulfamethox azole 800 mg-trimetho prim 160 mg tablet TAKE ONE (1) TABLET EVERY 12 HOURS BY ORAL ROUTE FOR 7 DAYS. 07/07 completed Not Available Not Available Not Available phenazopyri dine 100 mg tablet 07/07 completed Not Available Not Available Not Available cephalexin 500 mg capsule Take 1 capsule twice a day by oral route for 7 days. 05/09 completed Not Available Not Available Not Available cyanocobala min (vit B-12) 1,000 mcg/mL injection solution Inject 1 mL every month by subcutane ous route. 06/01 completed Not Available Not Available Not Available cephalexin 500 mg tablet Take 1 tablet every 12 hours by oral route for 7 days. 02/18 completed Not Available Not Available Not Available sodium chloride 0.9 % intravenous solution Inject 1000 mL by intraveno us route. 06/01 completed Not Available Not Available Not Available levofloxaci n 500 mg tablet Take 1 tablet every 24 hours by oral route for 5 days. 04/02 completed Not Available Not Available Not Available colestipol 1 gram tablet TAKE ONE (1) TABLET TWICE A DAY BY ORAL ROUTE NEEDED active Not Available Not Available No t Available amoxicillin 875 mg-potassiu m clavulanate 125 mg tablet 07/07 completed Not Available Not Available Not Available amoxicillin 500 mg-potassiu m clavulanate 125 mg tablet TAKE ONE (1) TABLET(S) EVERY 12 HOURS BY ORAL ROUTE FOR 7 DAYS. 12/10 completed Not Available Not Available Not Available Lactaid Fast Act 9,000 unit chewable tablet Take 1 tablet as needed by oral route. 01/12 completed Not Available Not Available Not Available Voltaren Arthritis Pain 1 % topical gel APPLY 1 GRAMS TO THE AFFECTED AREA(S) BY TOPICAL ROUTE 2 TIMES PER DAY 01/12 completed Not Available Not Available Not Available Vitals Date Recorded Body height Respiratory rate Body mass index (BMI) Body weight Body temperature Heart rate Oxygen saturation Systolic And Diastolic Provider Name and Address Organization Details Last Updated DateTime 5 161.29 cm 18 /min 21.3 kg/m2 08388.2 7 g 97.9 [degF] 64 /min 98 % 126/80 mm[Hg] Lorena Stears [place] - [facility] 5 16:48:49 Date Recorded Body height Body mass index (BMI) Body weight Heart rate Oxygen saturation Respiratory rate Pain severity - 0-10 verbal numeric rating [Score] - Reported Systolic And Diastolic Provider Name and Address Organization Details Last Updated DateTime 4 161.29 cm 21.3 kg/m2 69143.2 7 g 74 /min 98 % 18 /min 0 128/80 mm[Hg] Yomaira Caicedo [facility] 4 11:07:50 Date Recorded Body height Heart rate Heart rate Oxygen saturation Respiratory rate Pain severity - 0-10 verbal numeric rating [Score] - Reported Oxygen saturation Pain severity - 0-10 verbal numeric rating [Score] - Reported Systolic And Diastolic Systolic And Diastolic Provider Name and Address Organization Details Last Updated DateTime 4 161.29 cm 52 /min 57 /min 97 % 18 /min 0 98 % 0 160/82 mm[Hg] 178/82 mm[Hg] Yomaira Caicedo [facility] 4 08:59:18 Date Recorded Body height Respiratory rate Body mass index (BMI) Body weight Body temperature Oxygen saturation Heart rate Systolic And Diastolic Provider Name and Address Organization Details Last Updated DateTime 5 161.29 cm 18 /min 22 kg/m2 54655.6 4 g 97.8 [degF] 98 % 58 /min 130/74 mm[Hg] Lorenaalexandria Canelacarmela [facility] 5 13:56:12 Date Recorded Body height Body mass index (BMI) Body weight Heart rate Oxygen saturation Respiratory rate Pain severity - 0-10 verbal numeric rating [Score] - Reported Systolic And Diastolic Provider Name and Address Organization Details Last Updated DateTime 4 161.29 cm 21.5 kg/m2 31758.2 6 g 63 /min 98 % 18 /min 0 128/80 mm[Hg] Yomaira Caicedo [facility] 4 11:01:49 Social History Question Answer Notes LastModified by Organizat ion Details LastModified Time Tobacco Smoking Status Never Smoker Fabiola moser [facility] 06/18/2020 11:57:17 Do You Have An Advance Directive? No Information not available 06/18/2020 Are You Blind Or Do You Have Difficulty Seeing? No Information not available 07/07/2021 What Is Your Level Of Caffeine Consumption? None Information not available 06/18/2020 How Much Tobacco Do You Chew? None Information not available 06/18/2020 In The 14 Days Before Symptom Onset, Have You Had Close Contact With A Laboratory-confir med COVID-19 While That Case Was Ill? No Information not available 11/21/2022 In The 14 Days Before Symptom Onset, Have You Had Close Contact With A Person Who Is Under Investigation For COVID-19 While That Person Was Ill? No Information not available 11/21/2022 Have You Been To An Area Known To Be High Risk For COVID-19? No Information not available 11/21/2022 Are You Deaf Or Do You Have Serious Difficulty Hearing? No Information not available 07/07/2021 What Type Of Diet Are You Following? REGULAR Information not available 06/18/2020 Which Illicit Or Recreational Drugs Have You Used? None Information not available 06/18/2020 Have You Processed Blood Or Body Fluids From An Ebola Virus Disease Patient Without Appropriate PPE? No Information not available 11/21/2022 Do You Reside In Or Have You Traveled To An Area Where Ebola Virus Transmission Is Active? No Information not available 11/21/2022 What Is The Highest Grade Or Level Of School You Have Completed Or The Highest Degree You Have Received? [id number] Information not available 02/08/2022 Have There Been Any Changes To Your Family Or Social Situation? No Information no t available 07/07/2021 What Is The Fluoride Status Of Your Home? Unknown Information not available 02/08/2022 Hard Of Hearing Or Deaf In One Or Both Ears? No Information not available 06/18/2020 Have You Recently Or Are You Planning To Travel To An Area With Zika Virus? No Information not available 11/21/2022 Legally Blind In One Or Both Eyes? No Information no t available 06/18/2020 Live Alone Or With Others? With Others Information not available 06/18/2020 Do You Have A Medical Power Of Spanish Instructor? Yes Clemencia- Daughter Is Medical Power Of Spanish Instructor Information not available 11/21/2022 What Was The Date Of Your Most Recent Tobacco Screening? 04/18/2025 Information not available 04/18/2025 How Many Children Do You Have? 2 Information not available 06/18/2020 What Is Your Relationship Status? Information not available 06/18/2020 Are You Sexually Active? No Information not available 02/08/2022 Smoke Alarm In Home Yes Information not available 06/18/2020 Do You Have Smoke And Carbon Monoxide Detectors In Your Home? Yes Information not available 02/08/2022 Are You Passively Exposed To Smoke? No Information no t available 02/08/2022 Has Tobacco Cessation Counseling Been Provided? No Information not available 11/21/2022 Do You Have Difficulty Walking Or Climbing Stairs? No Information not available 07/07/2021 Sex: Female Functional Status Question Answer Note LastModified by Organizat ion Details LastModified Time Do you use any illicit or recreational drugs? No Information not available 07/07/2021 Do you or have you ever used any other forms of tobacco or nicotine? No Information not available 06/01/2023 What is your level of alcohol consumption? None Information not available 06/18/2020 Do you or have you ever used smokeless tobacco? Never used smokeless tobacco Information not available 06/18/2020 Are you currently employed? No Information not available 06/18/2020 Do you have transportation difficulties? No Information not available 07/07/2021 Are you able to walk independently without assistance or assistive devices? YESWOREST Information not available 06/18/2020 Do you have difficulty doing errands alone? Yes Information not available 04/18/2025 Are you able to care for yourself independently? Yes Information not available 06/18/2020 What is your occupation? retired Information not available 06/18/2020 Do you have difficulty dressing, bathing, grooming, or toileting? Yes Information not available 04/18/2025 Do you or have you ever used e-cigarettes or vape? Never used electronic cigarettes Information not available 06/18/2020 Mental Status Question Answer Note LastModified by Organizat ion Details LastModified Time Do you feel stressed (tense, restless, nervous, or anxious, or unable to sleep at night)? [id number] Information not available 02/08/2022 Do you have difficulty concentrating, remembering or making decisions? Yes Information no t available 04/18/2025 Family History Relationship Description Onset Age of this Age Resolved Age Notes LastModified by Organization Details LastModified Time Mother Diabetes mellitus mstacy Not available 2019 11:56:46 Medical History Condition Response Ovarian Cancer Y Hospitalizations Y Chicken Pox Y Gynecological History Statement/Question Response Abnormal Pap N Date of Last Colonoscopy 06/06/2023 Date of Last Mammogram 03/15/2021 Most Recent Bone Density Menses Monthly N Date of Last Pap Smear LMP Unknown Obstetrics History GPAL:G 2 P 2 0 0 0 Type Value Full Term 2 Total 2 Immunizations Vaccine Type Date Status Note Provider Nam e and Address Organization Details Recorded Time Influenza, high-dose, quadrivalent, PF 2 completed Gita Hameed APRN [address], [place], [address], [place] - [facility] 06/02/2022 13:15:46 COVID-19, mRNA, LNP-S, bivalent, PF, 50 mcg/0.5 mL or 25mcg/0.25 mL dose 2 completed Gita Hameed APRN [address], [place], [address], [place] [facility] 06/02/2022 13:15:46 Influenza, high-dose, trivalent, PF 4 completed Yomaira Caicedo [facility] [place] - [facility] 05/09/2024 17:26:47 Influenza, split virus, quadrivalent, preservative 0 completed Not Available [facility] 06/01/2023 10:21:35 COVID-19, mRNA, LNP-S, PF, 100 mcg/0.5mL dose or 50 mcg/0.25mL dose 1 completed Not Available [facility] 06/01/2023 10:21:35 COVID-19, mRNA, LNP-S, PF, 100 mcg/0.5mL dose or 50 mcg/0.25mL dose 1 completed Not Available [facility] 06/01/2023 10:21:35 COVID-19, mRNA, LNP-S, PF, 100 mcg/0.5mL dose or 50 mcg/0.25mL dose 1 completed Yomaira Caicedo VANITA moser - [facility] 11/21/2022 11:44:45 COVID-19, mRNA, LNP-S, PF, 100 mcg/0.5mL dose or 50 mcg/0.25mL dose completed Yomaira Caicedo VANITA moser - [facility] 11/21/2022 11:44:45 COVID-19, mRNA, LNP-S, PF, 100 mcg/0.5mL dose or 50 mcg/0.25mL dose completed Yomaira Caicedo VANITA moser [facility] 11/21/2022 11:44:45 Past Encounters Encounter ID Performer Location Encounter Start Date Encounter Closed Date Diagnosis/Indication Diagnosis SNOMED-CT Code Diagnosis ICD10 Code Diagnosis IMO Codes Diagnosis Note [id number] Tania Prieto MD [facility] [address] [place] [address] 06/18/2020 11:30:47 06/18/2020 12:21:55 Dysuria 56289984 R30.9 [id number] Tania Prieto MD [facility] [address] [place] [address] 08/18/2020 08:49:05 08/18/2020 10:16:36 Adult health examination 869029560 Z00.00 Depression screening 171 652654 Z13.89 Examinatio n of blood pressure 397198803 Z01.30 Diet education 51100473 Z71.3 Counseling 600121760 Z71 .82 Exercise counseling . Patient encouraged to exercise 30 minutes 5 days a week. At [facility] ed risk for falls 760249429 Z91.81 STEADI FAST screening score of ___2__. Advance care planning 71 5434731 Z71.89 Finding of body mass index 228432218 Z68.24 Screening mammography 24 760383 Z12.31 Menopausal syndrome 1237 36459 N95.9 Chronic diarrhea 8561002 09 K52.9 Unchanged Dysuria 24098174 R30.9 some mild persistent symptoms; had uti in june treated with bactrim [id number] Tania Prieto MD [facility] [address] [place] [address] 12/10/2020 11:12:55 12/10/2020 13:27:47 Dysuria 39581880 R30.9 had uti in june treated with bactrim [id number] Tania Prieto MD [facility] [address] [place] [address] 04/05/2021 07:54:26 04/05/2021 08:52:31 Osteoporosis 87679554 M81.0 continue calcium and vitamin D supplement ation Blood pres sure above reference range 19423477 R03.0 Change in skin lesion 39 6964942 L98.9 [id number] Radha Potter [address] [place] [id number] 07/07/2021 13:22:04 07/07/2021 14:49:08 Senile hyperkeratosis 277478916 L82.1 Cryo applied to right forehead - tolerated well Melanocytic nevus 183891 001 D22.9 [id number] Gita Hameed[address] [address] 02/08/2022 11:47:55 02/08/2022 12:16:42 Diverticulosis of colon 688487717 K57.30 Screening mammography 24 851156 Z12.31 Chronic diarrhea 1969989 09 K52.9 medication refilled [id number] Gita Hameed [address] [address] 05/23/2022 09:54:55 05/23/2022 10:26:47 Screening for malignant neoplasm of breast 079770020 Z12.39 Screening for malignant neoplasm of colon 655940479 Z12.11 Chronic diarrhea 6948501 09 K52.9 medication refilled [id number] Gita Hameed [address] [address] 06/02/2022 11:36:11 06/02/2022 12:12:58 Influenza vaccine needed 2646054186 106 Z23 Administra tion of SARS-CoV-2 antigen vaccine 489913068 Z23 Acute urin isael tract infection 578690124 N39.0 External hordeolum 91441 08 H00.019 warm compress, call eye [id number] Gita Hameed [address] [address] 11/21/2022 11:30:07 11/21/2022 12:07:50 Poor short-term memory 671045189 R41.3 pt was told to remember 3 items cat,ball and batafter one min- pt responded- cat,ball, lanternaft er 5 mins- pt responded cat,ball, lantern Pain of ri ght hip joint 3546923916 75090 M25.551 motrin as needed for pain [id number] Gita Hameed [address] [address] 01/12/2023 09:52:39 01/12/2023 10:22:04 Acute urinary tract infection 072106640 N39.0 Vitamin D deficiency 347 06574 E55.9 start otc vit d supplement Anemia 734936680 D64.9 Hemoglobin below reference range 226280770 D64.9 Impaired f asting glycemia 542919908 R73.01 [id number] Gita Hameed [address] [address] 01/23/2023 09:00:38 01/23/2023 09:53:24 Acute urinary tract infection 691573148 N39.0 Impaired f asting glycemia 904075844 R73.01 [id number] Gita Hameed [address] [address] 01/27/2023 09:02:57 01/27/2023 09:37:16 Cobalamin deficiency 885933489 E53.8 Mass of pancreas 2175323 [address] robles office has been notified and will work her in schedule cat [id number] Gita Hameed [address] [address] 02/24/2023 10:41:21 02/24/2023 11:24:52 History of malignant neoplasm of ovary 325433925 Z85.43 Mass of pancreas 2045297 00 K86.89 keep appointmen t with gi for follow up and colonoscop y [id number] Gita Hameed [address] [address] 03/10/2023 09:08:42 03/10/2023 10:30:16 Cobalamin deficiency 365407221 E53.8 Mild dehydration 4747283 119 108 E86.0 will do iv fluids and see if this improves pt memory to her baseline. pt needs to follow back up with neurology. pt states she feels better after the fluids Fatigue 63890381 R53.83 [id number] Gita Hameed [address] [address] 06/01/2023 10:15:13 06/01/2023 11:20:11 Acute urinary tract infection 834421718 N39.0 [id number] Gita Hameed [address] [address] 12/28/2023 14:46:05 12/28/2023 15:43:17 Acute urinary tract infection 183329090 N39.0 encourage fluid intakeretr un if symptoms worsen or no improvemen t [id number] Gita Hameed [address] [address] 01/26/2024 09:41:04 01/26/2024 10:23:56 Acute urinary tract infection 442802643 N39.0 encourage fluid intakeretu rn if symptoms worsen or no improvemen ttake full prescripti on of antibiotic s [id number] Gita Hameed [address] [address] 02/19/2024 10:52:28 02/19/2024 11:50:55 Acute urinary tract infection 088220458 N39.0 encourage fluid intakeretu rn if symptoms returnfoll ow up from finishing antibiotic s, urine test done. Edema of l ower extremity 078077654 R60.0 patient requesting electrolyt es be checked, educated on use of compressio n stockings if going to be on feet or in a car for a prolonged period of time. Memory impairment 180620 006 R41.3 Patient and daughter states that they will make an appointmen t with their Neurologis t, Dr. Chery in [place], [place]. [id number] [facility] [address] [address] 04/02/2024 08:22:29 04/02/2024 09:43:57 Syncope and collapse 757420097 R55 stayed at bedside monitoring pt until ems arrivedrep ort given to ems and pt transferre d to [facility]. [id number] Gita Hameed [place] [address] 05/09/2024 10:45:36 05/09/2024 11:46:49 Influenza vaccine needed 9331836714 106 Z23 Memory impairment 774375 [address] by self at this time- follow up with memory clinic today [id number] Gita Hameed [address] [address] 12/23/2024 16:12:11 12/23/2024 17:18:53 Edema of lower extremity 305948188 R60.0 21954 labsif worsen return or be seen in ed Memory impairment 709123 006 R41.3 65746 [id number] Gita Hameed [address] [address] 04/18/2025 13:50:52 04/18/2025 14:49:06 Alzheimer's disease 30144230 F02.80 G30.9 99255 Dementia 13965301 F03.90 [id number] Health Concerns Section Related Observation LastModified by Organization Detai ls LastModified Time None Recorded Concern Status LastModified by Organization Details LastModified Time None Recorded Advance Directives Directive N: Payers Insurance Date Sequence Insurance Name Policy Number Policy Vang Covered Member ID Vang Member ID Guarantor Name 04/18/2025 2 [place] Charleen Iyer [id number] Charleen Iyer 04/18/2025 1 [facility] (PPO) [id number] Charleen Iyer [id number] Charleen Iyer 06/10/2025 [place] Charleen Iyer [id number] Charleen Iyer 06/10/2025 [facility] - [place] [facility] (MEDICARE) Charleen Iyer [id number] Charleen Iyer 06/10/2025 1 [facility] (MEDICARE REPLACEMENT/A DVANTAGE - PPO) [id number] Charleen Iyer [id number] Charleen Iyer 04/18/2025 2 [employer] (PPO) Charleen Iyer [id number] Charleen Iyer Notes Date Note Type Note Provider Name and Address Organization Details Recorded Time 02/19/2024 text/html ROS as noted in the HPI 74 yr old female presents for a follow up after uti. Daughter states her memory is getting worse and would like to go back to the neurologist, and her ankles swelled this weekend after attending a wedding. Gita Avaloslata, GENERAL MERCHANDISE MANAGER [address], [place], [address], [place] [facility] 02/19/2024 11:40:27 04/02/2024 text/html ROS as noted in the HPI Daughter brought patient in with a dizzy/syncopal spell that occurred just prior to arrival. Was able to get patient in a wheelchair and into exam 3. EMS called on arrival.Patient states she was folding sheets and tugging back and forth when she got dizzy and woke up on the floor. denies cp,pressure. only c/o is rt hip pain Gita Hameed, GENERAL MERCH[employer]ISE MANAGER [address], [place], [address], [place] [facility] 04/02/2024 09:40:43 05/09/2024 text/html ROS as noted in the HPI 74 yr old female presents for a flu shot. daughter also concerned about mom driving. has appointment with mental health clinic for memory Gita Hameed APRN [address], [place], [address], [place] [facility] 06/03/2024 14:25:11 12/23/2024 text/html 74 year old female who presents to the office today with concerns of swollen ankles and legs x 2-3 weeksshort term memory getting worse-was seen at the memory clinic - does not care to have anymore work up at this time Gita Hameed APRN [address], [place], [address], [place] [facility] 12/23/2024 17:13:04 04/18/2025 text/html 75 year old female who presents to the office today with concerns ofdementia and alzheimer's, patients children would like paperwork and h&P completed for the [facility] [place] [facility] H[facility]P for [facility] be moving into assisted living on Monday04-21-25 Gita Hameed APRN [address], [place], [phone], [place] [facility] 04/18/2025 14:56:07 OBGyn Episode No OBEpisode recorded.
--- OUTSIDE RECORDS SUMMARY | 2025-07-25 12:13 | XMS_ITS | Clinical Summary ---
Author Organization [facility] Address [address] [place] [address] Care Team Providers Care Manager [employer] Name Role Phone Gita Hameed FOAM MOLDER Primary Care Provider [phone] Allergies Active Allergy Reactions Criticality Noted Date Comments Lactose Itching Medium 06/20/2024 Medications colestipol (Colestid) 1 g tablet TAKE ONE (1) TABLET TWICE A DAY BY ORAL ROUTE. Active donepezil (Aricept) 10 MG tabletIndications:M ajor neurocognitive disorder (CMS/HCC),Cerebrova scular disease Take 1 tablet (10 mg) by mouth every night. 90 tablet 3 Active Social History Tobacco Use Types Packs/Day Years Used Date Smoking Tobacco: Never Smokeless Tobacco: Never Tobacco Cessation:Counseling Given: Not Answered Alcohol Use Standard Drinks/Week Comments Never 0 (1 standard drink = 0.6 oz pur e alcohol) Comments Unknown Sex and Gender Information Value Date Recorded Sex Assigned at Not on file Legal Sex Female 8:41 AM EDT Gender Identity Not on file Sexual Orientation Not on file Last Filed Vital Signs Vital Sign Reading Time Taken Comments Blood Pressure 150/87 06/20/2024 3:37 PM EST 165/89 1st reading Pulse 76 06/20/2024 3:37 PM EST Temperature - - Respiratory Rate 20 06/20/2024 3:37 PM EST Oxygen Saturation 94% 06/20/2024 3:3 7 PM EST finger to cold Inhaled Oxygen Concentration - - Weight 54.8 kg (120 lb 12.8 oz) 06/20/2024 3:37 PM EST Height 157.5 cm (5' 2 ) 06/20/2024 3:37 PM EST Body Mass Index 22.09 06/20/2024 3:37 PM EST Plan of Treatment Health Maintenance Due Date Last Done Comments [facility]-Depression Screening 1950 [facility]-Hepatitis C Screening 1950 [facility]-Medicare Annual Wellness (AWV) 1950 [facility]-Infant/Child/Adol SDOH Screenings 1950 [facility]- SDOH Screenings 1967 [facility]-Adult SDOH Screenings 1967 [facility]-DTaP,Tdap,and Td Vaccines (1 - Tdap) 02/05/1968 [facility]-Pneumococcal Vaccine: 50+ Years (1 of 1 - PCV) 1999 [facility]-Zoster Vaccines (1 of 2) 1999 [facility]-Bone Density Scan 12/19/2020 12/19/2018 [facility]-RSV Vaccine: 60+ Years or (1 - 1-dose 75+ series) 02/05/2024 [id number] Vaccine (2024- season) 2025 06/02/2022, 06/12/2021, 10/19/2020, Additional history exists [facility]-Influenza Vaccine (#1) 2025 05/09/2024, [facility]-Breast Cancer Screening Discontinued 12/19/2018, 02/13/2017, 07/08/2015, Additional history exists HPV Vaccines (No Doses Required) Completed [facility]-HIB Vaccines Aged Out No longer e ligible based on patient's age to complete this topic [facility]-Hepatitis A Vaccines Aged Out No longer eligible based on patient's age to complete this topic [facility]-IPV Vaccines Aged Out No longer e ligible based on patient's age to complete this topic [facility]-Rotavirus Vaccines Aged Out No lo nger eligible based on patient's age to complete this topic Insurance [facility] MEDICARE Care Teams Manager [employer]icon[employer] Relationship Specialty Start Date End Date Gita Hameed APRN [address] [place] [address] PCP - General 05/09/24
--- NOTE | 2025-07-25 12:40 | ED_ITS ---
<Statement entered by Justyn Serrano MD - 07/29/25 14:41> I was consulted by the TOPHER, and we discussed the complexity of the problems being addressed. I approved the treatment and management plan for this patient's care in the emergency department, thus performing a substantive portion of the medical decision making. Justyn Serrano MD, YAEL, FACEP <Statement entered by Sourav Hollis MD - 07/25/25 18:55> Sourav Hollis MD: I was consulted by the TOPHER, and we discussed the complexity of the problems being addressed. I approve the treatment and management plan for this patient's care in the emergency department, thus performing a substantive portion of the medical decision making. Discharge Plan Disposition Patient Disposition: Admitted Condition: Good Clinical Impressions Clinical Impression: UTI (urinary tract infection), Compression fracture of L3 vertebra Dementia Qualifiers: Dementia type: Alzheimer's Alzheimer's disease onset: late onset Dementia severity: mild Dementia behavioral or psychological symptom: without behavioral, psychotic, or mood disturbance or anxiety Qualified Code(s): G30.1 - Alzheimer's disease with late onset Discharge ED Provider: Justyn Serrano General Adult [facility] General Chief complaint: Back Pain/Injury Stated complaint: AO -back pain Time Seen by Provider: 07/25/25 12:06 Mode of Arrival: Ambulatory Source of Information: Patient and Relative Description of Symptoms (Recalled from ER Triage Doc. by RN): PATIENT PRESENTS TO ED FOR LOWER BACK PAIN. LIVES ON [facility]IST[facility] AT [facility], HX OF DEMENTIA, COMES IN WITH DAUGHTER. PT TOLD SON SHE FELL RECENTLY, BUT CANNOT REMEMBER THIS INCIDENCE. NORMALLY WALKS INDEPENDENTLY. STATES SHE HAS HAD OUTPATIENT U/A AND X-RAY, BUT NO RESULTS ON X-RAY YET. History of Present Illness HPI narrative: 75-year-old female presents to the emergency department accompanied by daughter, from [facility] care/longterm facility for a 5-day history of lower back pain, generalized weakness, difficulty ambulating due to pain. No noted trauma or injury per history, however this is data deficient because there was no witnessed fall, however patient denied to daughter of falling denied to nursing staff but did tell her son , according to daughter at the bedside that she had fallen , patient is a GCS of 14, alert to person, disoriented to the exact place and time, this appears to be baseline according to daughter, patient has history of dementia, diagnosed by neurology/ dementia center. Patient and family deny any fever chills chest pain, nausea vomiting constipation diarrhea, no real abdominal pain, no neck pain no mid back pain, no radicular symptomatology, no numbness or tingling, no saddle anesthesia no urinary bladder or bowel dysfunction. However, nursing staff at [facility] noted some what sounded like vaginal bleeding , 2 weeks ago, this is since subsided, patient also has past medical history consistent with ovarian cancer status post chemoradiation and total hysterectomy several years ago. Also of note patient had outpatient x-ray performed of lower lumbar spine, which has not yet been able to be read by radiologist/physician, also had outpatient urinalysis performed which showed signs of infection according to daughter at the bedside. Patient has no past medical history of tobacco alcohol or drug use, other past medical history is consistent with anemia, initial triage vitals are unremarkable. Also of note, patient was given for p.o. ibuprofen for pain prior to arrival by longterm staff. Please note that above description of symptoms, in this electronic medical record under categorization of recalled from ER triage doctor by RN are reflective of an initial nursing assessment, however, is not reflective of my full history and physical exam that was personally taken and clarified. Consequentially, this preceding description of symptoms, which may include the patient's categorized chief complaint in the EMR, do not reflect my personal clinical impression, and the ultimate description of history of present illness and patient stated complaints should be deferred to this section of the note. Unless stated otherwise or congruent with this section of the note, additional signs, symptoms, or incongruence should be interpreted as inaccurate with my clinical impression. Onset (ago): day(s) Related Data Home Medications ?Medication ?Instructions ?Recorded ?Confirmed colestipol 5 gram oral packet 5 g PO DAILYP PRN per pr otocol 11/15/22 01/24/23 donepezil 10 mg tablet 10 mg PO 05/28/24 05/28/24 Allergies Allergy/AdvReac Type Severity Reaction Status Date / Time No Known Allergies Allergy Verified 05/28/24 13:15 [facility] Disclaimer: The information contained in this section may have been updated after the patient was seen, as this information can be updated by other users. Family History Other Coronary artery disease Diabetes Heart attack Stroke Social History Smoking Status: Never smoker alcohol intake: never substance use type: denies use current occupational status: retired Travel in the last 8 weeks?: None household members: other housing: house marital status: Have you lived/traveled outside US in past 30 days?: No Contact w/someone who lives/traveled outside US past 30 days?: No Exposure to someone with infectious disease in past 14 days?: No Do you have a fever (greater than 100.4 F or 38 C)?: No Have you tested positive for COVID-19?: No Exposed to someone with COVID-19 in past 14 days?: No Do you have a sore throat?: No Do you have a cough?: No Do you have any weakness?: No Do you have any diarrhea?: No Are you experiencing any unusual bleeding?: No Do you have any muscle aches/pain?: No Do you have any abdominal pain?: No Are you experiencing loss of taste or smell?: No Other Medical History Have you received the Pneumonia Vaccine: Yes ROS Obtained: Yes All systems reviewed & no additional complaints except as documented Physical Exam General General appearance: alert and in no apparent distress Head Head exam: atraumatic and normocephalic Eye Eye exam: Present PERRL and EOMI ENT ENT exam: Present mucous membranes moist Neck Neck exam: Present normal inspection Chest Chest inspection: Present normal inspection and symmetric chest wall rise Respiratory Respiratory exam: Present normal lung sounds bilaterally; Absent respiratory distress, wheezes or stridor Cardiovascular Cardiovascular exam: Present regular rate and normal rhythm Abdominal Exam Abdominal exam: Present soft; Absent tenderness, guarding, rebound or rigidity Extremities Exam Extremities exam: Present normal inspection, full ROM and other (Moves extremities to command, no acute traumatic dislocations deformities, otherwise neurovascular intact); Absent tenderness Back Exam Back exam: Present normal inspection, tenderness and paraspinal tenderness; Absent vertebral tenderness, straight leg raise (R) or straight leg raise (L) Comment: Mild paraspinal tenderness palpation to the lumbar spine/lower thoracic spine, no traumatic step-offs or deformities, no paraspinal or spinal tenderness palpation of the cervical spine T-spine or L-spine. Neurological Exam Neurological exam: Present alert and other (GCS 14 answers questions appropriately disoriented to exact place and time, oriented to person, moves extremities to command, no gross sensation deficit, 5 out of 5 strength in bilateral lower and upper extremities.); Absent oriented X3 Psychiatric Psychiatric exam: Present normal affect Skin Skin exam: Present warm and dry Medical Decision Making Medical Records Medical records reviewed: Yes I reviewed the patient's medical records. Screening: Per USPSTF and CDC recommendations, given the prevalence of disease in our region, it is our hospital?s policy to screen for HIV and viral Hepatitis for all patients aged 18 and over and those with ongoing risk factors. Bill Inquiry Pt receiving controlled substance: No Bill was queried for this patient: No Vital Signs: 07/25/25 12:12 07/25/25 12:17 07/25/25 12:17 Temperature 98.1 F 98.1 F Temperature Source Oral Pulse Rate 64 62 Pulse Rate [Right] 62 Respiratory Rate 16 16 Blood Pressure 189/84 H 189/84 H Blood Pressure [Right Arm] 189/84 H Blood Pressure Mean Blood Pressure Mean [Right Arm] 119 02 Sat by Pulse Oximetry 97 97 97 Oxygen Delivery Method Room Air 07/25/25 12:31 07/25/25 13:41 07/25/25 14:01 Temperature Temperature Source Pulse Rate 57 L 65 54 L Pulse Rate [Right] Respiratory Rate Blood Pressure 174/89 H 177/89 H 193/93 H Blood Pressure [Right Arm] Blood Pressure Mean Blood Pressure Mean [Right Arm] 02 Sat by Pulse Oximetry 97 99 97 Oxygen Delivery Method 07/25/25 15:00 07/25/25 15:30 07/25/25 15:42 Temperature Temperature Source Pulse Rate 60 Pulse Rate [Right] Respiratory Rate Blood Pressure 207/82 H 221/92 H 199/90 H Blood Pressure [Right Arm] Blood Pressure Mean 123 126 Blood Pressure Mean [Right Arm] 02 Sat by Pulse Oximetry 100 Oxygen Delivery Method 07/25/25 16:01 07/25/25 16:44 07/25/25 17:52 Temperature 98.2 F Temperature Source Pulse Rate 58 L 57 L 57 L Pulse Rate [Right] Respiratory Rate 18 Blood Pressure 201/87 H 203/81 H 155/88 H Blood Pressure [Right Arm] Blood Pressure Mean Blood Pressure Mean [Right Arm] 02 Sat by Pulse Oximetry 99 99 Oxygen Delivery Method Lab Data Lab results reviewed: Yes I reviewed the patient's lab results. Lab Results 07/25/25 13:40: WBC 5.5, RBC 4.10 L, Hgb 11.9 L, Hct 35.9 L, MCV 87.6, MCH 29.0, MCHC 33.1, RDW 13.0, Plt Count 222, MPV 11.6 H, Neut % (Auto) 73.4, Lymph % (Auto) 16.7, Holmes % (Auto) 7.1, Eos % (Auto) 1.3, Baso % (Auto) 1.1, Neut # (Auto) 4.0, Lymph # (Auto) 0.9, Holmes # (Auto) 0.4, Eos # (Auto) 0.1, Baso # (Auto) 0.1, Sodium 139, Potassium 3.4 L, Chloride 102, Carbon Dioxide 30, Anion Gap 10.4, BUN 15, Creatinine 0.80, Estimated Creat Clear 43, Estimated GFR 70, Est GFR ( Amer) 84, Glucose 93, Calcium 9.8, Magnesium 1.8, Total Bilirubin 0.6, AST 24, ALT 11 L, Alkaline Phosphatase 66, Total Protein 7.3, Albumin 4.2, Globulin 3.1, Albumin/Globulin Ratio 1.4, Lipase 69 07/25/25 14:51: Urine Color Yellow, Urine Appearance Slightly cloudy, Urine pH 7.5, Ur Specific Mandan 1.015, Urine Protein Negative, Urine Glucose (UA) Negative, Urine Ketones 1+, Urine Blood Negative, Urine Nitrate Positive A, Urine Bilirubin Negative, Urine Urobilinogen 0.2, Ur Leukocyte Esterase 1+ A, Urine RBC None, Urine WBC 3-5, Ur Squamous Epith Cells 3-5, Urine Bacteria 3+ 07/25/25 13:40 07/25/25 13:40 Orders (Tests/Meds): ED MEDICATIONS Generic Name Dose Route Start Last Admin Trade Name Freq PRN Reason Stop Dose Admin Acetaminophen 650 mg 07/25/25 17:58 Acetaminophen 325mg Tab PO 08/24/25 17:57 Q4HP PRN Fever or Mild Pain (1-3) Hydrocodone Bitart/Acetaminophen 1 tab 07/25/25 17:58 Hydrocodone/Apap 5/325 Mg Tablet PO 08/24/25 17:57 Q4HP PRN Moderate Pain (4-6) Hydrocodone Bitart/Acetaminophen 2 tab 07/25/25 17:58 Hydrocodone/Apap 5/325 Mg Tablet PO 08/24/25 17:57 Q4HP PRN Severe Pain (7-10) Nicotine 21 mg 07/25/25 17:58 Nicotine 21mg/24hr Patch TD 08/24/25 17:57 DAILYP PRN Nicotine Cravings Ondansetron HCl 4 mg 07/25/25 17:58 Ondansetron 4mg/2ml Vial IV 08/24/25 17:57 Q6HP PRN Nausea Discontinued Medications Generic Name Dose Route Start Last Admin Trade Name Freq PRN Reason Stop Dose Admin Hydrocodone Bitart/Acetaminophen 1 tab 07/25/25 16:44 07/25/25 16:57 Hydrocodone/Apap 5/325 Mg Tablet PO 07/25/25 16:45 1 tab ONCE ONE Administration Ceftriaxone Sodium 2 gm/ 100 mls @ 200 mls/hr 07/25/25 15:24 07/25/25 16:44 Sodium Chloride IV 07/25/25 15:53 Infused ONCE ONE Infusion Iopamidol 75 ml 07/25/25 15:09 07/25/25 15:10 Iopamidol-370 (76%);100ml Bottle IV 07/25/25 15:10 75 ml ONCE ONE Administration Sodium Chloride 10 ml 07/25/25 15:09 07/25/25 15:09 Sodium Chloride 0.9% 10ml Syr (Rad Only) IV 07/25/25 15:10 10 ml ONCE ONE Administration ORDERS Category Date Time Status CT abdomen pelvis w con Stat Cat Scan 07/25/25 13:[address] head/brain wo con Stat Cat Scan 07/25/25 13:[address] lumbar spine wo con Stat Cat Scan 07/25/25 13:[address] thoracic spine wo con Stat Cat Scan 07/25/25 13:05 Completed XR chest portable Stat Exams 07/25/25 13:05 Completed Complete Blood Count Auto Diff Stat Lab 07/25/25 13:40 Completed Comprehensive Metabolic Panel Stat Lab 07/25/25 13:40 Completed Lipase Stat Lab 07/25/25 13:40 Completed Magnesium Stat Lab 07/25/25 13:40 Completed Urinalysis and Microscopic Stat Lab 07/25/25 14:51 Completed Urine Culture Stat Micro 07/25/25 14:51 Received Medical Decision Narrative: 75-year-old female presents to the emergency department with low back pain for the last 5 days generalized weakness, differential diagnose include but not limited to acute UTI, acute pyelonephritis, nephrolithiasis, ureterolithiasis, malignancy, pathological osteoporotic compression fracture, acute lumbar sacral strain, traumatic spine fracture, failure to thrive, among others. I discussed this patient's case with the attending physician Dr. Serrano as well as Dr. Szymanski at shift change Will obtain basic laboratory studies, EKG, chest x-ray, lipase level magnesium level UA, CT head without contrast, CT abdomen pelvis with contrast, CT lumbar spine without and CT thoracic, without for further evaluation/characterization. CBC is notable for anemia with a hemoglobin 11.9 and hematocrit 35.9 which is stable and in line with patient's baseline anemia Minimal hypokalemia 3.4 Otherwise unremarkable CMP UA is positive for nitrites, will 1+ leukocyte esterase, 1+ ketonuria, because of this we will start with 2 g IV ceftriaxone. Microscopic analysis is notable for 3-5 WBC 35 squamous epithelial cells and 3+ bacteria I was notified by nursing staff at approximately 4:45 PM that the patient is complaining of some back pain, and does have an episode of hypertension, could be due to pain thus will give 5 mg p.o. Spring for lower back pain. I reviewed the patient's CT thoracic spine without contrast along with the corresponding radiological report. Degenerative changes of the thoracic without acute bony abnormality, left lower lobe 4 mm pulmonary nodule, follow-up in 1 year recommended. I reviewed the patient's chest x-ray along the corresponding radiologic report no acute cardiopulmonary process. I reviewed the patient's CT abdomen pelvis with contrast, the corresponding radiologic report, fat attenuation structure within or adjacent to the pancreas measuring [address] the [address] CT head without contrast on the corresponding radiologic report, atrophy and chronic changes without acute process. I reviewed the patient's CT lumbar spine without contrast along the corresponding radiologic report, compression deformity superior endplate of L3 with no prior exam for comparison age-indeterminate but favored chronic. I discussed this patient's case with the hospitalist physician Dr. Dawson at 5:05 PM, he is in agreement with the current admission plan/treatment plan for pain control of most likely new due to clinical history and no previous exam L3 compression fracture, acute UTI, need for PT OT pain management and bracing. At this time after discussion with hospital physician. Thought no need to discuss with spine surgery due to no unstable fracture appearance, focally neurologically intact, and age-indeterminate nature of the patient's fracture noted on CT scan. I discussed all results with the patient family the bedside I discussed need for admission with patient and family the bedside patient and family are in agreement with the current admission plan/treatment plan. Patient's daughter states that patient did have what sounds like remote pancreatic injury several years ago when they were performing a scope , after her cancer. Critical Care Critical Care Time Critical Care Time: No
--- NOTE | 2025-07-25 13:04 | CT_ITS ---
FINAL REPORT TECHNIQUE: After the administration of intravenous contrast, axial images were obtained through the abdomen and pelvis by computed tomography. The study was performed with techniques to keep radiation dose as low as reasonably achievable, (ALARA). Individual dose reduction techniques using automated exposure control or adjustment of mA and/or kV according to the patient's size were employed. CLINICAL HISTORY: Lower ABD back pain vaginal bleeding COMPARISON: None FINDINGS: Abdomen: There are calcified granulomas in the right middle lobe and lower lobe. The liver parenchyma is homogeneous. The gallbladder is distended. The spleen is unremarkable. There is a fat attenuation structure in the tail of the pancreas measuring 7 mm, well seen on image 32 of series 3. It is unclear if this is within or adjacent to the pancreas. The adrenal glands and kidneys are unremarkable. The aorta is normal in caliber. There is no free fluid or adenopathy. Pelvis: The appendix is not identified. The urinary bladder is decompressed. There is no free fluid or adenopathy. IMPRESSION: Fat attenuation structure within or adjacent to the pancreas measuring 7 mm. Reviewed, Interpreted and Dictated by Jose Guerin MD Transcribed by Sharri Sow Authenticated and [facility]
--- NOTE | 2025-07-25 13:05 | CT_ITS ---
FINAL REPORT TECHNIQUE: Axial images were obtained of the lumbar spine by computed tomography. Coronal and sagittal reconstruction process performed. This study was performed with techniques to keep radiation doses as low as reasonably achievable (ALARA). Individualized dose reduction techniques using automated exposure control or adjustment of mA and/or kV according to the patient''s size were employed. CLINICAL HISTORY: Lower back pain no trauma COMPARISON: None FINDINGS: There is a significant compression deformity of the superior endplate of L3 measuring 40%. Lumbar vertebrae show normal height. There is no malalignment. L1-2: Unremarkable. L2-3: Mild diffuse disc bulge. Mild bilateral neural foraminal narrowing. L3-4: Mild diffuse disc bulge. Mild bilateral neural foraminal narrowing. L4-5: Mild diffuse disc bulge. Mild bilateral neural foraminal narrowing. L5-S1: Unremarkable IMPRESSION: Compression deformity superior endplate of L3 with no prior exam for comparison, age-indeterminate but favored chronic. Reviewed, Interpreted and Dictated by Jose Guerin MD Transcribed by Sharri Sow Authenticated and . [facility]
--- NOTE | 2025-07-25 13:05 | CT_ITS ---
FINAL REPORT TECHNIQUE: Axial images were obtained of the thoracic spine by computed tomography. Coronal and sagittal reconstruction process performed. This study was performed with techniques to keep radiation doses as low as reasonably achievable (ALARA). Individualized dose reduction techniques using automated exposure control or adjustment of mA and/or kV according to the patient's size were employed. CLINICAL HISTORY: Back pain no trauma COMPARISON: None FINDINGS: There is thoracolumbar scoliosis convex to the right measuring 20 degrees. Thoracic vertebrae show normal height. There is moderate anterior osteophyte formation in the mid and lower thoracic spine. No significant spinal or neural foraminal narrowing. There is no malalignment. The facets are properly aligned. Visualized lung matamoros show a noncalcified nodule at the medial left lower lobe measuring 4 mm on image 86 of series 3. IMPRESSION: Degenerative/chronic changes of the thoracic spine without acute bony abnormality. Left lower lobe 4 mm nodule. Follow-up in 1 year recommended per Fleischner criteria. Reviewed, Interpreted and Dictated by Jose Guerin MD Transcribed by Sharri Sow Authenticated and [facility]
--- NOTE | 2025-07-25 13:05 | XR_ITS ---
FINAL REPORT CLINICAL HISTORY: AMS COMPARISON: None FINDINGS: The heart size is normal. The mediastinum is normal. Chronic changes are noted in both lungs. There is no focal infiltrate or edema. There are no pleural effusions. There is no pneumothorax. There is mild thoracic scoliosis convex to the right. IMPRESSION: No acute cardiopulmonary process Reviewed, Interpreted and Dictated by Jose Guerin MD Transcribed by Sharri Sow Authenticated and [facility]
--- NOTE | 2025-07-25 13:07 | CT_ITS ---
FINAL REPORT TECHNIQUE: multiple axial CT images were performed from the foramen magnum to the vertex without enhancement. CLINICAL HISTORY: AMS generalized weakness COMPARISON: None FINDINGS: There is mild atrophy with proportional ventriculomegaly. Physiologic calcification in the basal ganglia is noted. There is abnormal decreased attenuation in the deep white matter. Hyperostosis frontalis interna noted. There is no evidence of hemorrhage. No masses are identified. No extra-axial fluid is seen. The sinuses are normal. IMPRESSION: Atrophy and chronic changes without acute process. Reviewed, Interpreted and Dictated by Jose Guerin MD Transcribed by Sharri Sow Authenticated and [facility]
--- NOTE | 2025-07-25 13:43 | ECG_ITS ---
APPROVED REPORT Exam: Resting ECG HR:58 bpm ECG Measurements Heart Rate 58 AXES DC 141 P 70 QRSd 98 QRS 60 QT 411 T 76 QTc 407 Conclusion SINUS BRADYCARDIA BORDERLINE ECG UNCONFIRMED REPORT Electronically signed by : Damien Serrano, 07/25/2025 15:17:31
[2025-07-25 13:52] LABS: Hematocrit 35.9 % (37.0-47.0); Hemoglobin 11.9 g/dL (12.2-16.2); Immature Granulocytes % 0.4 %; Mean Corpuscular HGB Conc 33.1 g/dL (31.8-35.4); Mean Corpuscular Hemoglobin 29.0 pg (27.0-31.2); Mean Corpuscular Volume 87.6 fl (81-99); Nucleated Red Blood Cells % 0 %; Platelet Count 222 K/mm3 (142-424); Red Blood Count 4.10 M/mm3 (4.20-5.40); Red Cell Distribution Width-SD 41.8 fL; White Blood Count 5.5 K/mm3 (4.8-10.8)
--- NOTE | 2025-07-25 14:32 | HMH.ITSTN ---
waiting on gfr. lab is having to rerun blood, said will be about 15 more minutes
[2025-07-25 14:36] LABS: Albumin Level 4.2 g/dl (3.5-5.0); Chloride 102 mmol/L (98-107); Potassium 3.4 mmoL/L (3.5-5.1); Sodium 139 mmol/L (136-145)
[2025-07-25 14:39] LABS: Alanine Aminotransferase 11 U/L (12-78); Albumin/Globulin Ratio 1.4 (1.1-1.8); Alkaline Phosphatase 66 U/L (38-126); Anion Gap 10.4 mEq/L (5-15); Aspartate Amino Transferase 24 U/L (14-36); Bilirubin,Total 0.6 mg/dl (0.2-1.3); Blood Urea Nitrogen 15 mg/dl (7-17); Calcium 9.8 mg/dl (8.4-10.2); Carbon Dioxide 30 mmol/L (22.0-30.0); Creatinine Clearance Estimated 43 mL/min (50-200); Creatinine,Serum 0.80 mg/dl (0.52-1.04); Estimated Glomerular Filt Rate 70 ml/min (>60); GFR (African American) 84 ML/MIN (>60); Globulin 3.1 g/dL (1.3-3.2); Glucose 93 mg/dl (74-100); Lipase 69 U/L (23-300); Magnesium 1.8 mg/dl (1.6-2.3); Total Protein,Serum 7.3 g/dl (6.3-8.2)
[2025-07-25 15:02] LABS: Microscopic, Urine URINE MICROSCOPIC (MICROSCOPIC)
[2025-07-25 15:09] LABS: Bilirubin,Urine Negative (Negative); Color,Urine YELLOW (Yellow); Glucose,Urine (UA) Negative (Negative); Ketones,Urine 1+ (Negative); Leukocyte Esterase,Urine 1+ (Negative); PH,Urine 7.5 (5.0-8.5); Protein,Urine Negative (Negative); Specific Gravity, Urine 1.015 (1.005-1.030); Urobilinogen,Urine 0.2 EU/dl (0.2)
[2025-07-25] MEDS: SODIUM CHLORIDE 0.9% 10ML SYR (RAD ONLY) 10 ML IV (15:09)
[2025-07-25] MEDS: IOPAMIDOL-370 (76%);100ML BOTTLE 75 ML IV (15:10)
[2025-07-25 15:42] LABS: Bacteria,Urine 3+ /lpf
--- NOTE | 2025-07-25 16:43 | PC.NURSE ---
ambulated pt to the bedside. Pt complained of mild discomfort upon standing
[2025-07-25] MEDS: HYDROCODONE/APAP 5/325 MG TABLET 1 TAB PO (16:57)
--- NOTE | 2025-07-25 17:14 | PC.NURSE ---
fur dressing supervisor contacted for bed
--- NOTE | 2025-07-25 17:52 | PC.NURSE ---
report taken awaiting admit order.
--- NOTE | 2025-07-25 17:53 | P.HP_ITS ---
History of Present Illness *Admission Date: 07/25/25 *Reason for visit:: Low back pain *History of present illness: Charleen Iyer is a 75-year-old female with a history of presumed dementia who presented to the ED with acute onset low back pain. Patient lives at [facility] and was being checked on by her daughter when this morning patient was having significant low back pain and was brought to the ER for further evaluation. She initially denied recent falls to the ED, but upon further inquiry she endorsed maybe a fall with son. Patient's history seems to be tenuous given underlying dementia. Denies fever/chills, abdominal pain, urinary symptoms, constipation/diarrhea. Workup in the ED significant for lab UA grossly abnormal, lumbar CT revealing L3 superior endplate compression fracture, favored to be chronic. There was some fat attenuation around the pancreas noted on CT abdomen, but lipase normal. Left lower lobe 4 mm nodule noted on thoracic CT. Patient was having significant low back pain, and given significant confusion ED provider discussed case with me I decided to admit patient for further evaluation and management. On my evaluation after arriving on the floor, patient was lying in bed calmly without acute distress. No back pain at that time. Also, confusion per granddaughter at bedside is baseline. [facility] Disclaimer: The information contained in this section may have been updated after the patient was seen, as this information can be updated by other users. Family History Other Coronary artery disease Diabetes Heart attack Stroke Social History Smoking Status: Never smoker alcohol intake: never substance use type: denies use current occupational status: retired Travel in the last 8 weeks?: None household members: other housing: house marital status: Have you lived/traveled outside US in past 30 days?: No Contact w/someone who lives/traveled outside US past 30 days?: No Exposure to someone with infectious disease in past 14 days?: No Do you have a fever (greater than 100.4 F or 38 C)?: No Have you tested positive for COVID-19?: No Exposed to someone with COVID-19 in past 14 days?: No Do you have a sore throat?: No Do you have a cough?: No Do you have any weakness?: No Do you have any diarrhea?: No Are you experiencing any unusual bleeding?: No Do you have any muscle aches/pain?: No Do you have any abdominal pain?: No Are you experiencing loss of taste or smell?: No Other Medical History Have you received the Pneumonia Vaccine: Yes Meds Home Medications and Allergies Home Medications ?Medication ?Instructions ?Recorded ?Confirmed ?Type colestipol 5 gram oral packet 5 g PO DAILYP PRN per pr otocol 11/15/22 01/24/23 History donepezil 10 mg tablet 10 mg PO 05/28/24 05/28/24 H istory New Prescriptions to Start Prescriptions: Allergies Allergy/AdvReac Type Severity Reaction Status Date / Time No Known Allergies Allergy Verified 05/28/24 13:15 Exam Data for Last 24 hours Vital signs and Labs for Last 24 Hours: Temp Pulse Resp BP Pulse Ox O2 Del Method 98.2 F 57 L 18 155/88 H 99 Room Air 07/25/25 17:52 07/25/25 17:52 07/25/25 17:52 07/25/25 17:52 07/25/25 16:44 07/25/25 12:17 Laboratory Results - last 24 hr 07/25/25 13:40: WBC 5.5, RBC 4.10 L, Hgb 11.9 L, Hct 35.9 L, MCV 87.6, MCH 29.0, MCHC 33.1, RDW 13.0, Plt Count 222, MPV 11.6 H, Neut % (Auto) 73.4, Lymph % (Auto) 16.7, [place] % (Auto) 7.1, Eos % (Auto) 1.3, Baso % (Auto) 1.1, Neut # (Auto) 4.0, Lymph # (Auto) 0.9, [place] # (Auto) 0.4, Eos # (Auto) 0.1, Baso # (Aut o) 0.1, Sodium 139, Potassium 3.4 L, Chloride 102, Carbon Dioxide 30, Anion Gap 10.4, BUN 15, Creatinine 0.80, Estimated Creat Clear 43, Estimated GFR 70, Est GFR ( Amer) 84, Glucose 93, Calcium 9.8, Magnesium 1.8, Total Bilirubin 0.6, AST 24, ALT 11 L, Alkaline Phosphatase 66, Total Protein 7.3, Albumin 4.2, Globulin 3.1, Albumin/Globulin Ratio 1.4, Lipase 69 07/25/25 14:51: Urine Color Yellow, Urine Appearance Slightly cloudy, Urine pH 7.5, Ur Specific [place] 1.015, Urine Protein Negative, Urine Glucose (UA) Negative, Urine Ketones 1+, Urine Blood Negative, Urine Nitrate Positive A, Urine Bilirubin Negative, Urine Urobilinogen 0.2, Ur Leukocyte Esterase 1+ A, Urine RBC None, Urine WBC 3-5, Ur Squamous Epith Cells 3-5, Urine Bacteria 3+ I & O for Last 24 hours: Intake & Output 07/22/25 07/23/25 07/24/25 07/25/25 23:59 23:59 23:59 23:59 Intake Total 100 / 100 Balance 100 / 100 Weight 56.699 kg Constitutional Constitutional: no acute distress *Routine HEENT Exam Head: Present normocephalic Eye: Present EOMI and PERRL ENT: Present mucous membranes moist *Routine Neck Exam Neck: Present supple; Absent lymphadenopathy *Routine Respiratory Exam Respiratory: Present CTA bilaterally *Routine Cardiovascular Exam Cardiovascular: Present RRR *Routine Abdominal Exam Abdominal: Present soft and normoactive bowel sounds; Absent tenderness *Routine Rectal Exam Rectal:: deferred *Routine Genitalia Exam Genitalia:: deferred *Routine Extremities Exam Extremities: Absent cyanosis, clubbing or edema *Routine Skin Exam Skin: Present warm; Absent rash *Routine Neurological Exam Neurological: Present alert Assessment and Plan *Assessment and plan (1) Compression fracture of L3 vertebra: Status: Acute Category: Medical Code(s): S32.030A - Wedge compression fracture of third lumbar vertebra, initial e ncounter for closed fracture (2) UTI (urinary tract infection): Status: Acute Category: Medical Code(s): N39.0 - Urinary tract infection, site not specified Plan Charleen Iyer is a 75-year-old female with a history of presumed dementia who presented to the ED with acute onset low back pain. Patient lives at [facility] and was being checked on by her daughter when this morning patient was having significant low back pain and was brought to the ER for further evaluation. She initially denied recent falls to the ED, but upon further inquiry she endorsed maybe a fall with son. Patient's history seems to be tenuous given underlying dementia. Denies fever/chills, abdominal pain, urinary symptoms, constipation/diarrhea. Workup in the ED significant for lab UA grossly abnormal, lumbar CT revealing L3 superior endplate compression fracture, favored to be chronic. There was some fat attenuation around the pancreas noted on CT abdomen, but lipase normal. Left lower lobe 4 mm nodule noted on thoracic CT. Patient was having significant low back pain, and given significant confusion ED provider discussed case with me I decided to admit patient for further evaluation and management. On my evaluation after arriving on the floor, patient was lying in bed calmly without acute distress. No back pain at that time. Also, confusion per granddaughter at bedside is baseline. #Low back pain #L3 compression fracture ? Patient presented with acute low back pain, found to have L3 superior endplate compression fracture on CT. Unclear if patient had a fall. ? At this time, patient seems to be pain-free. No tenderness to palpation or step-offs on exam. ? Pain control with Tylenol, Vevay, Toradol as needed. ? PT/OT consulted, pending further recommendations. #UTI ? Urine analysis grossly abnormal. Continue IV ceftriaxone day 1/5. Follow-up urine culture. #Dementia ? Continue home donepezil once reconciled. Alert and oriented to self only. Baseline per granddaughter. Full code DVT prophylaxis: Lovenox 40 mg
--- NOTE | 2025-07-25 18:23 | PC.NURSE ---
arrived by stretcher from ED
--- NOTE | 2025-07-25 18:48 | PC.NURSE ---
DR. Dawson in room to see patient. Romulo Muniz called to send medication list.
[2025-07-26 04:00] VITALS: BP 159/74; PULSE 59; RESP 14; TEMP 36.6; O2SAT 100; BMI 20.7
--- NOTE | 2025-07-26 05:19 | PC.NURSE ---
Pt has remained to self and sometimes place. She has tolerated room air. She has denied any pain throughout the shift. She did has an episode of anxiety and was medicated per MAR. Family member has remained at bedside. Currently resting with bed alarm in place.
[2025-07-26 07:01] LABS: Hematocrit 37.1 % (37.0-47.0); Hemoglobin 11.8 g/dL (12.2-16.2); Immature Granulocytes % 0.2 %; Mean Corpuscular HGB Conc 31.8 g/dL (31.8-35.4); Mean Corpuscular Hemoglobin 28.0 pg (27.0-31.2); Mean Corpuscular Volume 87.9 fl (81-99); Nucleated Red Blood Cells % 0 %; Platelet Count 208 K/mm3 (142-424); Red Blood Count 4.22 M/mm3 (4.20-5.40); Red Cell Distribution Width-SD 41.5 fL; White Blood Count 4.5 K/mm3 (4.8-10.8)
[2025-07-26 07:11] LABS: Albumin Level 4.0 g/dl (3.5-5.0); Chloride 102 mmol/L (98-107); Sodium 138 mmol/L (136-145)
[2025-07-26 07:12] LABS: Potassium 3.2 mmoL/L (3.5-5.1)
[2025-07-26 07:14] LABS: Alanine Aminotransferase 8 U/L (12-78); Albumin/Globulin Ratio 1.4 (1.1-1.8); Alkaline Phosphatase 67 U/L (38-126); Anion Gap 9.2 mEq/L (5-15); Aspartate Amino Transferase 22 U/L (14-36); Bilirubin,Total 0.5 mg/dl (0.2-1.3); Blood Urea Nitrogen 10 mg/dl (7-17); Carbon Dioxide 30 mmol/L (22.0-30.0); Creatinine Clearance Estimated 42 mL/min (50-200); Creatinine,Serum 0.80 mg/dl (0.52-1.04); Estimated Glomerular Filt Rate 70 ml/min (>60); GFR (African American) 84 ML/MIN (>60); Globulin 2.8 g/dL (1.3-3.2); Total Protein,Serum 6.8 g/dl (6.3-8.2)
[2025-07-26 07:15] LABS: Calcium 9.6 mg/dl (8.4-10.2); Glucose 67 mg/dl (74-100)
[2025-07-26 08:00] VITALS: BP 175/98; PULSE 61; RESP 16; TEMP 36.6; O2SAT 98
[2025-07-26] MEDS: CEFTRIAXONE 1 GM 1 GM in 0.9 % SODIUM CHLORIDE 50 ML IV (09:11)
[2025-07-26] MEDS: POTASSIUM CHLORIDE 20MEQ TAB 40 MEQ PO ×2 (09:11→13:37)
--- NOTE | 2025-07-26 10:47 | HMH.PHAAMS2 ---
- Antimicrobial Stewardship Review culture & sensitivity review Stewardship interventions: culture & sensitivity review (CURRENTLY ON ROCEPHIN, WBC WNL OR LOW, AFEBRILE, GRAM - RODS IN URINE CX.)
[2025-07-26] MEDS: HYDROCODONE/APAP 5/325 MG TABLET 2 TAB PO (11:00)
--- NOTE | 2025-07-26 15:51 | P.PN_ITS ---
Subjective *Date: 07/26/25 *Time: 16:49 Interval history: Patient alert and interactive this morning. Knows who she is and where she is. Knows her daughter at bedside. Pain stable when she is not moving. Urine culture growing gram-negative rods. Stable on room air Medical Exam Vital signs and Labs for Last 24 Hours: Vital Signs Temp Pulse Pulse Resp BP BP Pulse Ox 07/26/25 13:00 07/26/25 11:00 07/26/25 09:00 07/26/25 08:00 07/26/25 08:00 97.8 F 61 16 175/98 H 98 07/26/25 06:41 07/26/25 05:00 07/26/25 04:00 97.9 F 59 L 14 159/74 H 100 07/26/25 03:00 07/26/25 01:00 07/25/25 23:00 07/25/25 21:00 07/25/25 20:00 07/25/25 19:53 97.8 F 52 L 12 180/83 H 98 07/25/25 18:35 97.7 F 54 L 18 158/79 H 90 L 07/25/25 18:25 07/25/25 17:52 98.2 F 57 L 18 155/88 H 07/25/25 17:34 07/25/25 16:44 57 L 203/81 H 99 07/25/25 16:01 58 L 201/87 H 99 O2 Del Method 07/26/25 13:00 Room Air 07/26/25 11:00 Room Air 07/26/25 09:00 Room Air 07/26/25 08:00 Room Air 07/26/25 08:00 Room Air 07/26/25 06:41 Room Air 07/26/25 05:00 Room Air 07/26/25 04:00 Room Air 07/26/25 03:00 Room Air 07/26/25 01:00 Room Air 07/25/25 23:00 Room Air 07/25/25 21:00 Room Air 07/25/25 20:00 Room Air 07/25/25 19:53 Room Air 07/25/25 18:35 Room Air 07/25/25 18:25 Room Air 07/25/25 17:52 07/25/25 17:34 Room Air 07/25/25 16:44 07/25/25 16:01 Intake and Output 07/25/25 07/26/25 07/26/25 23:59 07:59 15:59 Intake Total 100 / 250 150 / 360 210 / 360 Output Total 75 / 75 225 / 425 200 / 425 Balance 25 175 - / 65 Intake: Intake, Oral Amount 150 / 310 160 / 310 Intake, Total IV Amount 100 / 100 50 / 50 Ceftriaxone 1 gm 1 gm In 0.9 % 50 / 50 Sodium Chloride 50 ml @ 100 mls /hr IV Q24H [facility] Rx#:[id number] Ceftriaxone Sodium 2 gm In 0.9 100 / 100 % Sodium Chloride 100 ml @ 200 mls/hr IV ONCE ONE Rx#:[id number] Output: Output, Urine Amount 75 / 75 225 / 425 200 / 425 Other: Number of Unmeasured Voids 0 0 1 Weight 55.293 kg 55.111 kg Patient Weight 07/26/25 23:59 Weight 55.111 kg Laboratory Results - last 24 hr 07/25/25 14:51: Urine Color Yellow, Urine Appearance Slightly cloudy, Urine pH 7.5, Ur Specific [place] 1.015, Urine Protein Negative, Urine Glucose (UA) Negative, Urine Ketones 1+, Urine Blood Negative, Urine Nitrate Positive A, Urine Bilirubin Negative, Urine Urobilinogen 0.2, Ur Leukocyte Esterase 1+ A, Urine RBC None, Urine WBC 3-5, Ur Squamous Epith Cells 3-5, Urine Bacteria 3+ 07/26/25 06:05: WBC 4.5 L, RBC 4.22, Hgb 11.8 L, Hct 37.1, MCV 87.9, MCH 28.0, MCHC 31.8, RDW 12.9, Plt Count 208, MPV 11.9 H, Neut % (Auto) 64.7, Lymph % (Auto) 20.7, [place] % (Auto) 8.9, Eos % (Auto) 4.2, Baso % (Auto) 1.3, Neut # (Auto) 2.9, Lymph # (Auto) 0.9, [place] # (Auto) 0.4, Eos # (Auto) 0.2, Baso # (Auto) 0.1, Sodium 138, Potassium 3.2 L, Chloride 102, Carbon Dioxide 30, Anion Gap 9.2, BUN 10 D, Creatinine 0.80, Estimated Creat Clear 42, Estimated GFR 70, Est GFR ( Amer) 84, Glucose 67 L D, Calcium 9.6, Total Bilirubin 0.5, AST 22, ALT 8 L D, Alkaline Phosphatase 67, Total Protein 6.8, Albumin 4.0, Globulin 2.8, Albumin/Globulin Ratio 1.4 I & O for Labs for Last 24 Hours: Intake & Output 07/23/25 07/24/25 07/25/25 07/26/25 23:59 23:59 23:59 23:59 Intake Total 100 / 250 360 / 360 Output Total 75 / 75 425 / 425 Balance 25 / 175 -65 / -65 Weight 55.293 kg 55.111 kg Microbiology Reports for the Last 24 Hours: Microbiology 07/25/25 14:51 Urine,Clean Catch Urine Culture - Preliminary Gram Negative Rods Constitutional: Present no acute distress, average body habitus and cooperative Head: Present atraumatic and normocephalic Respiratory: Present normal respiratory effort; Absent rhonchi, wheezes or crackles Cardiac: Present Reg Rate and Rhythm GI: Present normal bowel sounds; Absent tenderness Extremities: Present normal inspection and full ROM Skin: Present intact; Absent erythema Neuro: Present Grossly Intact, alert, awake and moves all extremities Assessment and Plan *Assessment and plan (1) Compression fracture of L3 vertebra: Status: Acute Category: Medical Code(s): S32.030A - Wedge compression fracture of third lumbar vertebra, initial encounter for closed fracture (2) UTI (urinary tract infection): Status: Acute Qualifiers: Urinary tract infection type: acute cystitis Category: Medical Code(s): N39.0 - Urinary tract infection, site not specified (3) Dementia: Status: Chronic Qualifiers: Dementia type: Alzheimer's Alzheimer's disease onset: late onset Dementia severity: mild Dementia behavioral or psychological symptom: without behavioral, psychotic, or mood disturbance or anxiety Qualified Code(s): G30.1 - Alzheimer's disease with late onset; F02.A0 - Dementia in other diseases classified elsewhere, mild, without behavioral disturbance, psychotic disturbance, mood disturbance, and anxiety Category: Medical Code(s): F03.90 - Unspecified dementia, unspecified severity, without behavioral disturbance, psychotic disturbance, mood disturbance, and anxiety Plan Charleen Iyer is a 75-year-old female with a history of presumed dementia who presented to the ED with acute onset low back pain. Patient [place] [facility] and was being checked on by her daughter when this morning patient was having significant low back pain and was brought to the ER for further evaluation. She initially denied recent falls to the ED, but upon further inquiry she endorsed maybe a fall with son. Patient's history seems to be tenuous given underlying dementia. Denies fever/chills, abdominal pain, urinary symptoms, constipation/diarrhea. Workup in the ED significant for lab UA grossly abnormal, lumbar CT revealing L3 superior endplate compression fracture, favored to be chronic. There was some fat attenuation around the pancreas noted on CT abdomen, but lipase normal. Left lower lobe 4 mm nodule noted on thoracic CT. Patient was having significant low back pain, and given significant confusion ED provider discussed case with me I decided to admit patient for further evaluation and management. Pain stable this morning without movement. Awaiting therapy evaluation. Urine growing gram-negative rods. Continues to require inpatient management pending dispo recommendations from therapy. Problems addressed as follows: #Low back pain #L3 compression fracture ? Patient presented with acute low back pain, found to have L3 superior endplate compression fracture on CT. Unclear if patient had a fall. ? At this time, patient seems to have pain control with minimal movement. - PT and OT evaluating today. Will discuss need for TLSO brace - Continue Tylenol 650 every 4 hours as needed, hydrocodone 5 to 10 mg as needed every 4 hours for moderate to severe breakthrough pain. Toradol 15 mg IV every 6 hours for moderate to severe pain. Monitor for toxicity. - Initiate docusate/senna 1 tab twice daily today as she has not had a bowel movement since admission. #UTI ? Urine analysis grossly abnormal. Gram-negative rods, awaiting further spe ciation and sensitivity. Ceftriaxone IV 1 g day 2 of 5. #Dementia ? Continue with a night routine, reorientation by family. Minimal interaction after bedtime. Not on any meds at this time per chart review Full code DVT prophylaxis: Lovenox 40 mg Regular diet
[2025-07-26 16:00] VITALS: BP 145/74; PULSE 65; RESP 14; TEMP 36.6; O2SAT 99
--- NOTE | 2025-07-26 17:47 | HMH.PTEV ---
Physical Therapy Evaluation Rehab PT IP Evaluation Start: 07/25/25 18:43 Freq: ONCE Status: Active Protocol: Document 07/26/25 17:41 PHORLORE (Rec: 07/26/25 17:47 PHORNE [id number]) Subjective/History History History 75-year-old female with a history of presumed dementia who presented to the ED with acute onset low back pain. Patient lives at [facility] and was being checked on by her daughter when this morning patient was having significant low back pain and was brought to the ER for further evaluation. She initially denied recent falls to the ED, but upon further inquiry she endorsed maybe a fall with son. Patient's history seems to be tenuous given underlying dementia. Denies fever/chills, abdominal pain, urinary symptoms, constipation/diarrhea. Workup in the ED significant for lab UA grossly abnormal, lumbar CT revealing L3 superior endplate compression fracture, favored to be chronic. There was some fat attenuation around the pancreas noted on CT abdomen, but lipase normal. Left lower lobe 4 mm nodule noted on thoracic CT. Patient was having significant low back pain, and given significant confusion ED provider discussed case with me I decided to admit patient for further evaluation and management. On my evaluation after arriving on the floor, patient was lying in bed calmly without acute distress. No back pain at that time. Also, confusion per granddaughter at bedside is baseline. Subjective Subjective Pt presents awake, supine, agrees to OOB mobility assessment. She has no c/o pain at this time. She is a resident of [facility] at baseline and is generally independent with all mobility and ADLs without an AD. [facility] How much help from another person do you currently need... Turning from your None back to your side while in a flat bed without using bedrails? Moving from lying on None back to sitting on the side of a flat bed without using bedrails? Moving to and from a A little bed to a chair ( including a wheelchair)? Standing up from a A little chair using your arms? (e.g., wheelchair, bedside chair) Walking in hospital A little room? Climbing 3-5 steps A little with a railing? Mobility Score 20 Mobility Level [facility] Mobility Walk 10 steps or more Mobility Calculator Rehab PT IP Eval Objective Appearance Patient Behavior Appropriate Patient Orientation Person Difficulty following none instructions Speech Pattern Clear Ambulation Patient Able to Yes Ambulate Ambulation Observation IP General Gait No Deviations/Normal Pattern Observation Ambulation Distance 75 (feet) Ambulation Assistive None Device Ambulation Ability Contact Guard/Hand Hold Balance Ability to Arise Able, uses arms to help Sitting Balance Steady, safe Standing Balance Steady, wide stance Dynamic Sitting Good Balance Ability Dynamic Standing Good Balance Ability Transfers Bed Transfer Ability Independent Chair Transfer Contact Guard/Hand Hold Ability Sit to Stand Bed Contact Guard/Hand Hold Transfer Ability Sit to Stand Chair Contact Guard/Hand Hold Transfer Ability ROM All Extremities PT ROM Status WFL MMT All Extremities PT MMT WFL Rehab PT IP prob,goals,plan Problems Date of Evaluation: 07/26/25 PT IP Problems Transfers,Gait,Self care,Safety Rehab Potential Rehab Potential Good Plan PT Intervention Plan Transfers,Gait,Self care,Safety,Other PT Plan Frequency Daily Duration LOS Discharge Goals Sit to Stand Chair Independent Transfer Ability Ambulation Assistive None Device Ambulation Distance 100 (feet) Discharge Plan PT Discharge Plan Pt is currently most appropriate for short term rehab placement once medically stable for d/c. She does require slightly more assistance with safety during transfers than her baseline. Her dementia complicates all aspects of her care. She may be able to return to [facility] if she meets all therapy goals prior to d/c. Skilled acute therapy is indicated to improve transfer ability and general ambulation in order to return pt to [facility]. Unless her L3 compression fracture is unstable, it is unlikely a TLSO brace would improve her mobility. A brace may help with pain control, but it is unknown if her baseline dementia will allow her to use the brace appropriately. Eval Complexity Eval Charge Codes [id number] - Moderate Complexity PHYSICIAN CERTIFICATION: I certify the specified therapy services for Charleen Iyer are required, authorized, and reviewed every 30 days.
--- NOTE | 2025-07-26 18:25 | PC.NURSE ---
pt able to ambulate to BR/ chair with standby assistance. pt remains alert to self only. no needs at this time. call light within reach. bed alarm in place
[2025-07-26 19:49] VITALS: BP 145/72; PULSE 79; RESP 17; TEMP 36.6; O2SAT 97
[2025-07-27 04:00] VITALS: BP 151/72; PULSE 73; RESP 14; TEMP 36.8; O2SAT 97; BMI 21.1
[2025-07-27 07:19] LABS: Hematocrit 36.1 % (37.0-47.0); Hemoglobin 11.9 g/dL (12.2-16.2); Immature Granulocytes % 0.2 %; Mean Corpuscular HGB Conc 33.0 g/dL (31.8-35.4); Mean Corpuscular Hemoglobin 29.0 pg (27.0-31.2); Mean Corpuscular Volume 88.0 fl (81-99); Nucleated Red Blood Cells % 0 %; Platelet Count 211 K/mm3 (142-424); Red Blood Count 4.10 M/mm3 (4.20-5.40); Red Cell Distribution Width-SD 41.9 fL; White Blood Count 4.9 K/mm3 (4.8-10.8)
[2025-07-27 07:29] VITALS: BP 158/77; PULSE 72; RESP 14; TEMP 36.6; O2SAT 97
[2025-07-27 07:29] LABS: Chloride 106 mmol/L (98-107)
[2025-07-27 07:30] LABS: Albumin Level 3.7 g/dl (3.5-5.0); Potassium 4.4 mmoL/L (3.5-5.1); Sodium 138 mmol/L (136-145)
[2025-07-27 07:32] LABS: Anion Gap 11.4 mEq/L (5-15); Blood Urea Nitrogen 18 mg/dl (7-17); Carbon Dioxide 25 mmol/L (22.0-30.0); Creatinine Clearance Estimated 42 mL/min (50-200); Creatinine,Serum 0.90 mg/dl (0.52-1.04); Estimated Glomerular Filt Rate 61 ml/min (>60); GFR (African American) 74 ML/MIN (>60)
[2025-07-27 07:33] LABS: Alanine Aminotransferase 9 U/L (12-78); Albumin/Globulin Ratio 1.4 (1.1-1.8); Alkaline Phosphatase 62 U/L (38-126); Aspartate Amino Transferase 18 U/L (14-36); Bilirubin,Total 0.3 mg/dl (0.2-1.3); Calcium 9.3 mg/dl (8.4-10.2); Globulin 2.7 g/dL (1.3-3.2); Glucose 99 mg/dl (74-100); Total Protein,Serum 6.4 g/dl (6.3-8.2)
[2025-07-27] MEDS: CEFTRIAXONE 1 GM 1 GM in 0.9 % SODIUM CHLORIDE 50 ML IV (08:43)
--- NOTE | 2025-07-27 09:08 | P.PN_ITS ---
Subjective *Date: 07/27/25 *Time: 09:08 Interval history: Feeling better this morning. Tolerating p.o. intake. Still has limited mobility due to back pain. Therapy recommended placement for rehab. Case management consulted to assist with rehab placement at [facility]. Stable on room air. Afebrile. Medical Exam Vital signs and Labs for Last 24 Hours: Vital Signs Temp Pulse Resp BP Pulse Ox O2 Del Method 07/27/25 08:00 Room Air 07/27/25 07:29 97.8 F 72 14 158/77 H 97 Room Air 07/27/25 06:34 Room Air 07/27/25 05:00 Room Air 07/27/25 04:00 98.2 F 73 14 151/72 H 97 Room Air 07/27/25 03:00 Room Air 07/27/25 01:00 Room Air 07/26/25 22:58 Room Air 07/26/25 21:00 Room Air 07/26/25 20:00 Room Air 07/26/25 19:49 98 F 79 17 145/72 H 97 Room Air 07/26/25 18:51 Room Air 07/26/25 17:00 Room Air 07/26/25 16:00 97.8 F 65 14 145/74 H 99 Room Air 07/26/25 15:00 Room Air 07/26/25 13:00 Room Air 07/26/25 11:00 Room Air Intake and Output 07/26/25 07/27/25 07/27/25 23:59 07:59 15:59 Intake Total 360 / 920 200 / 400 200 / 400 Output Total 250 / 675 200 / 200 Balance 110 / 245 0 / 200 200 / 200 Intake: Intake, Oral Amount 360 / 870 200 / 400 200 / 400 Output: Output, Urine Amount 250 / 675 200 / 200 Other: Number of Unmeasured Voids 1 1 Weight 56.109 kg Patient Weight 07/27/25 23:59 Weight 56.109 kg Laboratory Results - last 24 hr 07/27/25 05:55: WBC 4.9, RBC 4.10 L, Hgb 11.9 L, Hct 36.1 L, MCV 88.0, MCH 29.0, MCHC 33.0, RDW 13.0, Plt Count 211, MPV 11.7 H, Neut % (Auto) 67.6, Lymph % (Auto) 18.5, Webster % (Auto) 9.0, Eos % (Auto) 3.3, Baso % (Auto) 1.4, Neut # (Auto) 3.3, Lymph # (Auto) 0.9, Webster # (Auto) 0.4, Eos # (Auto) 0.2, Baso # (Auto) 0.1, Sodium 138, Potassium 4.4 D, Chloride 106, Carbon Dioxide 25, Anion Gap 11.4, BUN 18 H D, Creatinine 0.90, Estimated Creat Clear 42, Estimated GFR 61, Est GFR ( Amer) 74, Glucose 99 D, Calcium 9.3, Total Bilirubin 0.3, AST 18, ALT 9 L, Alkaline Phosphatase 62, Total Protein 6.4, Albumin 3.7, Globulin 2.7, Albumin/Globulin Ratio 1.4 I & O for Labs for Last 24 Hours: Intake & Output 07/24/25 07/25/25 07/26/25 07/27/25 23:59 23:59 23:59 23:59 Intake Total 100 / 250 720 / 920 400 / 400 Output Total 75 / 75 675 / 675 200 / 200 Balance 25 / 175 45 / 245 200 / 200 Weight 55.293 kg 55.111 kg 56.109 kg Microbiology Reports for the Last 24 Hours: Microbiology 07/25/25 14:51 Urine,Clean Catch Urine Culture - Final Escherichia coli Constitutional: Present no acute distress, average body habitus and cooperative Head: Present atraumatic and normocephalic Respiratory: Present normal respiratory effort; Absent rhonchi, wheezes or crackles Cardiac: Present Reg Rate and Rhythm GI: Present normal bowel sounds; Absent tenderness Extremities: Present normal inspection and full ROM Skin: Present intact; Absent erythema Neuro: Present Grossly Intact, alert, awake and moves all extremities Assessment and Plan *Assessment and plan (1) Compression fracture of L3 vertebra: Status: Acute Category: Medical Code(s): S32.030A - Wedge compression fracture of third lumbar vertebra, initial encounter for closed fracture (2) UTI (urinary tract infection): Status: Acute Qualifiers: Urinary tract infection type: acute cystitis Category: Medical Code(s): N39.0 - Urinary tract infection, site not specified (3) Dementia: Status: Chronic Qualifiers: Dementia type: Alzheimer's Alzheimer's disease onset: late onset Dem entia severity: mild Dementia behavioral or psychological symptom: without behavioral, psychotic, or mood disturbance or anxiety Qualified Code(s): G30.1 - Alzheimer's disease with late onset; F02.A0 - Dementia in other diseases classified elsewhere, mild, without behavioral disturbance, psychotic disturbance, mood disturbance, and anxiety Category: Medical Code(s): F03.90 - Unspecified dementia, unspecified severity, without behavioral disturbance, psychotic disturbance, mood disturbance, and anxiety Plan Charleen Iyer is a 75-year-old female with a history of presumed dementia who presented to the ED with acute onset low back pain. Patient lives at [facility] and was being checked on by her daughter when this morning patient was having significant low back pain and was brought to the ER for further evaluation. She initially denied recent falls to the ED, but upon further inquiry she endorsed maybe a fall with son. Patient's history seems to be tenuous given underlying dementia. Denies fever/chills, abdominal pain, urinary symptoms, constipation/diarrhea. Workup in the ED significant for lab UA grossly abnormal, lumbar CT revealing L3 superior endplate compression fracture, favored to be chronic. There was some fat attenuation around the pancreas noted on CT abdomen, but lipase normal. Left lower lobe 4 mm nodule noted on thoracic CT. Patient was having significant low back pain, and given significant confusion ED provider discussed case with me I decided to admit patient for further evaluation and management. Pain stable this morning without movement. Therapy evaluated, recommend SNF. Case management assisting with placement. Treating UTI. Problems addressed as follows: #Low back pain #L3 compression fracture ? Patient presented with acute low back pain, found to have L3 superior endplate compression fracture on CT. Unclear if patient had a fall. ? At this time, patient seems to have pain control with minimal movement. - PT and OT evaluated and recommend SNF. Will reevaluate TLSO brace needs in the morning. Does not need it from a stability standpoint but may needed for pain control. - Continue Tylenol 650 every 4 hours as needed, hydrocodone 5 to 10 mg as needed every 4 hours for moderate to severe breakthrough pain. Toradol 15 mg IV every 6 hours for moderate to severe pain. Monitor for toxicity. - Continue docusate/senna 1 tab twice daily today as she has not had a bowel movement since admission. #UTI due to fluoroquinolone resistant E. coli: Urine analysis grossly abnormal. Urine growing E. coli sensitive to cephalosporins. Resistant to jaime quinolones. Ceftriaxone IV 1 g day 3 of 5. #Dementia: Continue with a day/night routine, reorientation by family. Minimal interaction after bedtime. Not on any meds at this time per chart review Full code DVT prophylaxis: Lovenox 40 mg Regular diet
[2025-07-27] MEDS: HYDROCODONE/APAP 5/325 MG TABLET 2 TAB PO ×2 (09:55→20:01)
--- NOTE | 2025-07-27 11:16 | HMH.PHAAMS2 ---
- Antimicrobial Stewardship Review culture & sensitivity review Stewardship interventions: culture & sensitivity review (CURRENTLY RECEIVING ROCEPHIN FOR UTI, WBC WNL, AFEBRILE, URINE CX POSITIVE FOR SENSITIVE E. COLI.)
[2025-07-27 15:54] VITALS: BP 161/73; PULSE 66; RESP 16; TEMP 36.6; O2SAT 97
--- OUTSIDE RECORDS SUMMARY | 2025-07-27 16:37 | XMS_ITS | Encounter Summary ---
Author Organization [facility] Address 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 Name Role Phone Gita Hameed [employer] SUPERVISOR Primary Care Provider [phone] Reason for Referral * Consultation (Routine) - Closed Specialty Diagnoses / Procedures Referred By Tosha nagy Referred To Contact Neurology Diagnoses Memory loss Nehemiah Odom APRN [address] [place] [address] Phone: tel: fax: [facility] [place] [facility] [address] [place] [id number] Phone: tel: fax: Referral ID Status Reason Start Date Expiration Date V isits Requested Visits Authorized [id number] Closed Specialty Services Required 01/25/2023 07/26/2024 1 1 Encounter Details Date Type Department Care Team (Late st Contact Info) Description 01/25/2023 [facility] [address] [place] [phone] Nehemiah Odom APRN [address] [place] [address] Memory loss (Primary Dx) Social [...] Primary documented in this encounter Care Teams Spring Coiling Machine Setter Relationship Specialty Start Date End Date Gita Hameed APRN [address] [place] [address] PCP - General 05/09/24 documented as of this encounter
--- OUTSIDE RECORDS SUMMARY | 2025-07-27 16:38 | XMS_ITS | Data Portability ---
Author Organization [facility] Address [address] [place] [address] Care Team Providers Care Bundle Sorter Name Role Phone BANDAR CORBYLAMBERTOAlexandria Primary Care Provider Assessment No assessment recorded. Plan of Treatment Reminders Order Date Submit Date Provider Last Modified By Organization Details Last Modified Time Details Appointments None recorded. Lab BNP (B-type natriuretic peptide), serum or plasma 2024 025 JAMES [facility], [address], [address], [place], [address], 5 10:08:05 CMP, serum or plasma 2024 025 JAMES [facility], [address], [place] [address], [place], [address], 5 10:08:03 TSH + free T4, serum 2024 025 JAMES [facility], [address], [place], [place], [address], 5 10:08:02 renal function panel, serum 2024 025 JAMES [facility], [address], [address] [address], [place], [address], 5 10:08:04 glucose, fingerstick , blood 2023 024 [facility], [address] [facility], [place], [address], 4 09:39:35 CMP, serum or plasma 2023 [facility], [address], [address], [place], [address], 4 00:06:19 urinalysis, dipstick 2023 [facility], [address] [place] [address], [address], 4 12:18:57 culture, urine 2023 024 [facility], [address], [place] [address], [place], [address], 4 00:06:19 CBC w/ auto diff 2023 024 [facility], [address], [address] [address], [place], [address], 4 00:06:18 Referral None recorded. Procedures None recorded. Surgeries None recorded. Imaging electrocard iogram 2023 [facility], [address] [place] [address], [address], 4 10:01:30 Medication Orders Normal Saline Flush 0.9 % injection syringe 2023 024 sofialer Not available 11:02:22 levofloxaci n 500 mg tablet 2023 [facility] [id number], [address] [place] [address], [address], 4 08:45:32 Patient TargetsNo targets recorded. Patient Instructions Encounter Date Encounter Id Patient Instructions Last Modified By Organization Details Last Modified Time 02/19/2024 [id number] leg and ankle edema: care instructions rosendo Not available 02/19/2024 11:38:29 Reason for Referral None Reported. Results Created Date Observation Date Name Description Value Unit Range Abnormal Flag Note LastModifiedBy Organization Detail LastModifiedTime 01/26/20 24 01/30/2024 URINE CULTU RE, ROUTI NE urine culture, routine Final report abnormal Not Available [facility] ([facility]) [address] [facility], [place], [address], 01/30/2024 15:08:01 01/26/20 24 01/30/2024 URINE CULTU RE, ROUTI NE result 1 Klebsi jerald oxytoc a abnormal 10,00 0-25, 000 colon y formi ng units per mL Not Available [facility] ([facility]) [address] [facility], [place], [address], 01/30/2024 15:08:01 01/26/20 24 01/30/2024 URINE CULTU [...] thopr im/Guzman lfa S Not Available [facility] ([facility]) [address] [facility], [place], [address], 01/30/2024 15:08:01 01/26/20 24 01/26/2024 urina lysis , dipst ick Leukocytes Small Not Available Andrea [address], [address], 01/26/2024 10:12:42 01/26/20 24 01/26/2024 urina lysis , dipst ick Nitrite negati ve Not Available [address], [address], 01/26/2024 10:12:42 01/26/20 24 01/26/2024 urina lysis , dipst ick Urobilinogen .2 Not Available Toñito [address], [address], 01/26/2024 10:12:42 01/26/20 24 01/26/2024 urina lysis , dipst ick Protein Negati ve Not Available [address], [address], 01/26/2024 10:12:42 01/26/20 24 01/26/2024 urina lysis , dipst ick pH 5.5 Not Available [address], [address], 01/26/2024 10:12:42 01/26/20 24 01/26/2024 urina lysis , dipst ick Blood Negati ve Not Available [address], [address], 01/26/2024 10:12:42 01/26/20 24 01/26/2024 urina lysis , dipst ick Specific Austin 1.010 Not Available [address], [address], 01/26/2024 10:12:42 01/26/20 24 01/26/2024 urina lysis , dipst ick Ketone Negati ve Not Available [address], [address], 01/26/2024 10:12:42 01/26/20 24 01/26/2024 urina lysis , dipst ick Bilirubin Negati ve Not Available [address], [address], 01/26/2024 10:12:42 01/26/20 24 01/26/2024 urina lysis , dipst ick Glucose Negati ve Not Available [address], [address], 01/26/2024 10:12:42 01/26/20 24 01/26/2024 urina lysis , dipst ick Appearance Clear Not Available [address], [address], 01/26/2024 10:12:42 01/26/20 24 01/26/2024 urina lysis , dipst ick Color Yellow Not Available [address], [address], 01/26/2024 10:12:42 02/19/20 24 02/20/2024 CBC WITH DIFFE RENTI AL/PL ATELE T WBC 4.4 x10e3 /uL 3.4-10 .8 Not Available [facility] ([facility]) [address] [place], [address], 02/21/2024 00:06:18 02/19/20 24 02/20/2024 CBC WITH DIFFE RENTI AL/PL ATELE T RBC 4.30 x10e6 /uL 3.77-5 .28 Polyc hroma alexandra prese nt Ovalo cytes prese nt. Not Available [facility] ([facility]) [address] [facility], [place], [address], 02/21/2024 00:06:18 02/19/20 24 02/20/2024 CBC WITH DIFFE RENTI AL/PL ATELE T hemoglobin 12.3 g/dL 11.1-1 5.9 Not Available [facility] ([facility]) [address] [facility], [place], [address], 02/21/2024 00:06:18 02/19/20 24 02/20/2024 CBC WITH DIFFE RENTI AL/PL ATELE T hematocrit 39.6 % 34.0-4 6.6 Not Available [facility] ([facility]) [address] [facility], [place], [address], 02/21/2024 00:06:18 02/19/20 24 02/20/2024 CBC WITH DIFFE RENTI AL/PL ATELE T MCV 92 fL 79-97 Not Available [facility] ([facility]) [address] [facility], [place], [address], 02/21/2024 00:06:18 02/19/20 24 02/20/2024 CBC WITH DIFFE RENTI AL/PL ATELE T MCH 28.6 pg 26.6-3 3.0 Not Available [facility] ([facility]) [address] [place], [address], 02/21/2024 00:06:18 02/19/2002/20/2024 CBC WITH DIFFE RENTI AL/PL ATELE T MCHC 31.1 g/dL 31.5-3 5.7 below low normal Not Available [facility] ([facility]) [address] [place], [address], 02/21/2024 00:06:18 02/19/20 24 02/20/2024 CBC WITH DIFFE RENTI AL/PL ATELE T RDW 13.1 % 11.7-1 5.4 Not Available [facility] ([facility]) [address] [place], [address], 02/21/2024 00:06:18 02/19/20 24 02/20/2024 CBC WITH DIFFE RENTI AL/PL ATELE T platelets 133 x10e3 /uL 150-45 0 below low normal Actua l plate let count may be somew hat highe r than repor amelia due to aggre gatio n of plate lets in this sampl e. Not Available [facility] ([facility]) [address] [facility], [place], [address], 02/21/2024 00:06:18 02/19/20 24 02/20/2024 CBC WITH DIFFE RENTI AL/PL ATELE T neutrophils 64 % not estab. Not Available [facility] ([facility]) [address] [facility], [place], [address], 02/21/2024 00:06:18 02/19/20 24 02/20/2024 CBC WITH DIFFE RENTI AL/PL ATELE T lymphs 24 % not estab. Not Available [facility] ([facility]) [address] [facility], [place], [address], 02/21/2024 00:06:18 02/19/20 24 02/20/2024 CBC WITH DIFFE RENTI AL/PL ATELE T monocytes 9 % not estab. Not Available [facility] ([facility]) [address] [facility], [place], [address], 02/21/2024 00:06:18 02/19/20 24 02/20/2024 CBC WITH DIFFE RENTI AL/PL ATELE T eos 2 % not estab. Not Available [facility] ([facility]) [address] [facility], [place], [address], 02/21/2024 00:06:18 02/19/20 24 02/20/2024 CBC WITH DIFFE RENTI AL/PL ATELE T basos 1 % not estab. Not Available [facility] ([facility]) [address] [facility], [place], [address], 02/21/2024 00:06:18 02/19/20 24 02/20/2024 CBC WITH DIFFE RENTI AL/PL ATELE T immature cells TILE DECORATOR Not Available [facility] ([facility]) [address] [facility] [address], [place], [address], 02/21/2024 00:06:18 02/19/20 24 02/20/2024 CBC WITH DIFFE RENTI AL/PL ATELE T neutrophils (absolute) 2.8 x10e3 /uL 1.4-7. 0 Not Available [facility] ([facility]) [address] [facility], [place], [address], 02/21/2024 00:06:18 02/19/20 24 02/20/2024 CBC WITH DIFFE RENTI AL/PL ATELE T lymphs (absolute) 1.0 x10e3 /uL 0.7-3. 1 Not Available [facility] ([facility]) [address] [facility], [place], [address], 02/21/2024 00:06:18 02/19/20 24 02/20/2024 CBC WITH DIFFE RENTI AL/PL ATELE T monocytes(ab solute) 0.4 x10e3 /uL 0.1-0. 9 Not Available [facility] ([facility]) [address] [facility], [place], [address], 02/21/2024 00:06:18 02/19/20 24 02/20/2024 CBC WITH DIFFE RENTI AL/PL ATELE T eos (absolute) 0.1 x10e3 /uL 0.0-0. 4 Not Available [facility] ([facility]) [address] [facility], [place], [address], 02/21/2024 00:06:18 02/19/20 24 02/20/2024 CBC WITH DIFFE RENTI AL/PL ATELE T baso (absolute) 0.1 x10e3 /uL 0.0-0. 2 Not Available [facility] ([facility]) [address] [facility], [place], [address], 02/21/2024 00:06:18 02/19/20 24 02/20/2024 CBC WITH DIFFE RENTI AL/PL ATELE T immature granulocytes 0 % not estab. Not Available [facility] ([facility]) [address] [facility], [place], [address], 02/21/2024 00:06:18 02/19/20 24 02/20/2024 CBC WITH DIFFE RENTI AL/PL ATELE T immature grans (abs) 0.0 x10e3 /uL 0.0-0. 1 Not Available [facility] ([facility]) [address] [facility], [place], [address], 02/21/2024 00:06:18 02/19/20 24 02/20/2024 CBC WITH DIFFE RENTI AL/PL ATELE T NRBC TILE DECORATOR Not Available [facility] ([facility]) [address] [facility], [place], [address], 02/21/2024 00:06:18 02/19/20 24 02/20/2024 CBC WITH DIFFE RENTI AL/PL ATELE T hematology comments: Note: Verif ied by coby moya nSunita Not Available [facility] ([facility]) [address] [facility], [place], [address], 02/21/2024 00:06:18 02/19/20 24 02/20/2024 COMP. METAB OLIC PANEL (14) glucose 83 mg/dL 70-99 Not Available [facility] ([facility]) [address] [facility], [place], [address], 02/21/2024 00:06:19 02/19/20 24 02/20/2024 COMP. METAB OLIC PANEL (14) BUN 7 mg/dL 8-27 below low normal Not Available [facility] ([facility]) [address] [facility], [place], [address], 02/21/2024 00:06:19 02/19/20 24 02/20/2024 COMP. METAB OLIC PANEL (14) creatinine 0.67 mg/dL 0.57-1 .00 Not Available [facility] ([facility]) [address] [place], [address], 02/21/2024 00:06:19 02/19/20 24 02/20/2024 COMP. METAB OLIC PANEL (14) eGFR 91 mL/mi n/1.7 3 >59 Not Available [facility] ([facility]) [address] [place], [address], 02/21/2024 00:06:19 02/19/20 24 02/20/2024 COMP. METAB OLIC PANEL (14) BUN/creatini ne ratio 10 12-28 below low normal Not Available [facility] ([facility]) [address] [place], [address], 02/21/2024 00:06:19 02/19/20 24 02/20/2024 COMP. METAB OLIC PANEL (14) sodium 142 mmol/ L 134-14 4 Not Available [facility] ([facility]) [address] [place], [address], 02/21/2024 00:06:19 02/19/20 24 02/20/2024 COMP. METAB OLIC PANEL (14) potassium 3.7 mmol/ L 3.5-5. 2 Not Available [facility] ([facility]) [address] [facility] [place], [address], 02/21/2024 00:06:19 02/19/20 24 02/20/2024 COMP. METAB OLIC PANEL (14) chloride 104 mmol/ L 96-106 Not Available [facility] ([facility]) [address] [place], [address], 02/21/2024 00:06:19 02/19/20 24 02/20/2024 COMP. METAB OLIC PANEL (14) carbon dioxide, total 25 mmol/ L 20-29 Not Available [facility] ([facility]) [address] [facility] [place], [address], 02/21/2024 00:06:19 02/19/20 24 02/20/2024 COMP. METAB OLIC PANEL (14) calcium 9.6 mg/dL 8.7-10 .3 Not Available [facility] ([facility]) [address], [place], [address], 02/21/2024 00:06:19 02/19/20 24 02/20/2024 COMP. METAB OLIC PANEL (14) protein, total 6.8 g/dL 6.0-8. 5 Not Available [facility] ([facility]) [address], [place], [address], 02/21/2024 00:06:19 02/19/20 24 02/20/2024 COMP. METAB OLIC PANEL (14) albumin 4.3 g/dL 3.8-4. 8 Not Available [facility] ([facility]) [address], [place], [address], 02/21/2024 00:06:19 02/19/20 24 02/20/2024 COMP. METAB OLIC PANEL (14) globulin, total 2.5 g/dL 1.5-4. 5 Not Available [facility] ([facility]) [address], [place], [address], 02/21/2024 00:06:19 02/19/20 24 02/20/2024 COMP. METAB OLIC PANEL (14) bilirubin, total 0.4 mg/dL 0.0-1. 2 Not Available [facility] ([facility]) [address] [place], [address], 02/21/2024 00:06:19 02/19/20 24 02/20/2024 COMP. METAB OLIC PANEL (14) alkaline phosphatase 56 IU/L 44-121 Not Available [facility]) [address] [facility], [place], [address], 02/21/2024 00:06:19 02/19/20 24 02/20/2024 COMP. METAB OLIC PANEL (14) AST (SGOT) 17 IU/L 0-40 Not Available [facility] ([facility]) [address] [facility], [place], [address], 02/21/2024 00:06:19 02/19/20 24 02/20/2024 COMP. METAB OLIC PANEL (14) ALT (SGPT) 10 IU/L 0-32 Not Available [facility] ([facility]) [address] [facility], [place], [address], 02/21/2024 00:06:19 02/19/20 24 02/20/2024 URINE CULTU RE, ROUTI NE urine culture, routine Final report Not Available [facility] ([facility]) [address] [place], [address], 02/21/2024 00:06:19 02/19/20 24 02/20/2024 URINE CULTU RE, ROUTI NE result 1 COMMEN T Cultu re shows less than 10,00 0 colon y formi ng units of bacte padmini per pili liter of urine . This colon y count is not gener ally consi dered to be clini liborio signi fican t. Not Available [facility] ([facility]) [address] [place], [address], 02/21/2024 00:06:19 02/19/20 24 02/19/2024 urina lysis , dipst ick Leukocytes Trace Not Available [address], [address], 02/19/2024 11:08:55 02/19/20 24 02/19/2024 urina lysis , dipst ick Nitrite negati ve Not Available [address], [address], 02/19/2024 11:08:55 02/19/20 24 02/19/2024 urina lysis , dipst ick Urobilinogen .2 Not Available Toñito [address], [address], 02/19/2024 11:08:55 02/19/20 24 02/19/2024 urina lysis , dipst ick Protein Negati ve Not Available [address], [address], 02/19/2024 11:08:55 02/19/20 24 02/19/2024 urina lysis , dipst ick pH 6.5 Not Available [address], [address], 02/19/2024 11:08:55 02/19/20 24 02/19/2024 urina lysis , dipst ick Blood Negati ve Not Available [address], [address], 02/19/2024 11:08:55 02/19/20 24 02/19/2024 urina lysis , dipst ick Specific Austin 1.015 Not Available [address], [address], 02/19/2024 11:08:55 02/19/20 24 02/19/2024 urina lysis , dipst ick Ketone Negati ve Not Available [address], [address], 02/19/2024 11:08:55 02/19/20 24 02/19/2024 urina lysis , dipst ick Bilirubin Negati ve Not Available [address], [address], 02/19/2024 11:08:55 02/19/20 24 02/19/2024 urina lysis , dipst ick Glucose Negati ve Not Available [address], [address], 02/19/2024 11:08:55 02/19/20 24 02/19/2024 urina lysis , dipst ick Appearance Clear Not Available [address], [address], 02/19/2024 11:08:55 02/19/20 24 02/19/2024 urina lysis , dipst ick Color Yellow Not Available [address], [address], 02/19/2024 11:08:55 04/02/20 24 04/02/2024 gluco se, finge rstic k, blood Blood Glucose: mg/dl 82 Not Available [address], [address], 04/02/2024 09:10:19 04/02/20 24 04/02/2024 gluco se, finge rstic k, blood Reference Range (60-100) normal Not Available [address], [address], 04/02/2024 09:10:19 12/24/19 25 12/24/2024 TSH+F REE T4 TSH 1.220 uIU/m L 0.450- 4.500 normal Not Available [facility] ([facility]) [address] [place], [address], 12/24/2024 10:08:02 12/24/19 25 12/24/2024 TSH+F REE T4 T4,free(dire ct) 0.99 NG/dL 0.82-1 .77 normal Not Available [facility] ([facility]) [address] [place], [address], 12/24/2024 10:08:02 12/24/19 25 12/24/2024 COMP. METAB OLIC PANEL (14) glucose 112 mg/dL 70-99 above high normal Not Available [facility] ([facility]) [address] [place], [address], 12/24/2024 10:08:03 12/24/19 25 12/24/2024 COMP. METAB OLIC PANEL (14) BUN 13 mg/dL 8-27 normal Not Available [facility] ([facility]) [address] [facility] [place], [address], 12/24/2024 10:08:03 12/24/19 25 12/24/2024 COMP. METAB OLIC PANEL (14) creatinine 0.64 mg/dL 0.57-1 .00 normal Not Available [facility] ([facility]) [address] [facility] [place], [address], 12/24/2024 10:08:03 12/24/19 25 12/24/2024 COMP. METAB OLIC PANEL (14) eGFR 92 mL/mi n/1.7 3 >59 normal Not Available [facility] ([facility]) [address] [facility] [place], [address], 12/24/2024 10:08:03 12/24/19 25 12/24/2024 COMP. METAB OLIC PANEL (14) BUN/creatini ne ratio 20 12-28 normal Not Available [facility] ([facility]) [address] [facility] [place], [address], 12/24/2024 10:08:03 12/24/19 25 12/24/2024 COMP. METAB OLIC PANEL (14) sodium 144 mmol/ L 134-14 4 normal Not Available [facility] ([facility]) [address] [facility] [place], [address], 12/24/2024 10:08:03 12/24/19 25 12/24/2024 COMP. METAB OLIC PANEL (14) potassium 4.0 mmol/ L 3.5-5. 2 normal Not Available [facility] ([facility]) [address] [facility], [place], [address], 12/24/2024 10:08:03 12/24/19 25 12/24/2024 COMP. METAB OLIC PANEL (14) chloride 103 mmol/ L 96-106 normal Not Available [facility] ([facility]) [address] [facility], [place], [address], 12/24/2024 10:08:03 12/24/19 25 12/24/2024 COMP. METAB OLIC PANEL (14) carbon dioxide, total 27 mmol/ L 20-29 normal Not Available [facility] ([facility]) [address] [facility], [place], [address], 12/24/2024 10:08:03 12/24/19 25 12/24/2024 COMP. METAB OLIC PANEL (14) calcium 9.9 mg/dL 8.7-10 .3 normal Not Available [facility] ([facility]) [address] [place], [address], 12/24/2024 10:08:03 12/24/19 25 12/24/2024 COMP. METAB OLIC PANEL (14) protein, total 6.4 g/dL 6.0-8. 5 normal Not Available [facility] ([facility]) [address] [place], [address], 12/24/2024 10:08:03 12/24/19 25 12/24/2024 COMP. METAB OLIC PANEL (14) albumin 4.2 g/dL 3.8-4. 8 normal Not Available [facility] ([facility]) [address] [facility], [place], [address], 12/24/2024 10:08:03 12/24/19 25 12/24/2024 COMP. METAB OLIC PANEL (14) globulin, total 2.2 g/dL 1.5-4. 5 Not Available [facility] ([facility]) [address] [place], [address], 12/24/2024 10:08:03 12/24/19 25 12/24/2024 COMP. METAB OLIC PANEL (14) bilirubin, total 0.3 mg/dL 0.0-1. 2 normal Not Available [facility] ([facility]) [address] [place], [address], 12/24/2024 10:08:03 12/24/19 25 12/24/2024 COMP. METAB OLIC PANEL (14) alkaline phosphatase 60 IU/L 44-121 normal Not Available [facility]) [address] [place], [address], 12/24/2024 10:08:03 12/24/19 25 12/24/2024 COMP. METAB OLIC PANEL (14) AST (SGOT) 17 IU/L 0-40 normal Not Available [facility] ([facility]) [address] [place], [address], 12/24/2024 10:08:03 12/24/19 25 12/24/2024 COMP. METAB OLIC PANEL (14) ALT (SGPT) 10 IU/L 0-32 normal Not Available [facility] ([facility]) [address] [place], [address], 12/24/2024 10:08:03 12/24/19 25 12/24/2024 RENAL PANEL (10) phosphorus 3.1 mg/dL 3.0-4. 3 normal Not Available [facility] ([facility]) [address] [place], [address], 12/24/2024 10:08:04 12/24/19 25 12/24/2024 B-TYP E NATRI URETI C PEPTI DE B-type natriuretic peptide 42.0 pg/mL 0.0-10 0.0 Sieme ns ADVIA [facility] XP metho dolog y Not Available [facility] ([facility]) [address] [facility], [place], [address], 12/24/2024 10:08:05 04/02/20 24 04/02/2024 elect rocar diogr am No observ ation record ed. [address], [address], 04/02/2024 10:01:36 04/02/20 24 04/02/2024 elect rocar diogr am No observ ation [facility] ed. [facility] [address], [place], [address], 04/02/2024 16:23:52 04/05/20 24 04/02/2024 elect rocar diogr am No observ ation record ed. [email or web address] [address], [address], 04/17/2024 10:42:39 05/28/20 24 05/28/2024 jessie r monit or No observ ation record ed. [facility] [address], [place], [address], 06/03/2024 13:59:24 07/25/20 25 07/25/2025 imagi ng/di agnos tic resul t No observ ation record ed. [facility] [address], [place], [place], [address], 07/25/2025 16:12:29 07/25/20 25 07/25/2025 imagi ng/di agnos tic resul t No observ ation record ed. [facility] [address], [place], [address], 07/25/2025 16:55:59 07/25/20 25 07/25/2025 imagi ng/di agnos tic resul t No observ ation record ed. [facility] [address], [place], [address], 07/25/2025 16:57:02 07/25/20 25 07/25/2025 imagi ng/di agnos tic resul t No observ ation record ed. [facility] [address], [place], [address], 07/25/2025 16:58:03 07/25/20 25 07/25/2025 imagi ng/di agnos tic resul t No observ ation record ed. [facility] [address], [place], [address], 07/25/2025 16:59:31 07/25/20 25 07/25/2025 imagi ng/di agnos tic resul t No observ ation record ed. [facility] [address], [place], [address], 07/25/2025 17:00:10 Result Notes None recorded. Problems Name Problem SNOMED Code Status Onset Date Resolution Date Notes Provider Name and Address Organization Details Recorded Time Diverticulosis of colon 019233285 Active 2019 Gita Hameed APRN [address], [place], [address], [place] - [facility] 13:49:54 Chronic diarrhea 597626660 Active 2019 Gita Hameed, [employer] [address], [place], [address], [place] - [facility] 13:49:50 History of malignant neoplasm of ovary 556544006 Active 2019 Gita Hameed, [employer] [address], [place], [address], [place] - [facility] 13:49:57 Intolerance to lactose 264135637 Active 2021 Eugonda Fryman, [employer] [address], [place], [address], [place] - [facility] 13:50:00 Alzheimer's disease 59377460 Active 2024 Lorenavitaly Canelas null, [place] - [facility] 5 13:49:00 Dementia 50761057 Active 2024 Lorena Stears null, [place] - [facility] 13:49:40 Problem Notes None recorded. Procedures Surgical History Date Name Laterality Status Provider Name and Address Organization Details Recorded Time 04/02/20 24 IV Infusion completed Yomaira Caicedo [place] - [facility] 04/02/2024 08:56:37 06/06/20 23 Date of Last Colonoscopy completed Yomaira Caicedo [place] - [facility] 07/19/2023 09:17:56 06/06/20 23 colonoscopy completed Lorena Canelas [place] - [facility] 12/28/2023 15:03:16 03/10/20 23 IV Infusion completed Yomaira Caicedo [place] [facility] 03/10/2023 10:26:21 02/25/20 23 Medication Reconcilliation completed Lorena Canelas [place] [facility] 02/24/2023 10:58:39 11/22/19 23 Medication Reconcilliation completed Yomaira Caicedo [place] [facility] 11/21/2022 11:36:22 07/07/20 21 Cryosurgery Dermatology completed Radha Tariq, [employer] [address], [place], [address], [place] - [facility] 07/07/2021 14:45:48 03/15/20 21 Date of Last Mammogram completed Fabiola Baker [place] - [facility] 04/05/2021 08:09:01 08/18/19 21 Advance Care Planning completed Fabiola Galiciacy [place] [facility] 08/18/2020 09:02:59 08/18/19 21 Systolic B/P less than 130 mm Hg completed Fabiola Olivia [place] [facility] 08/18/2020 09:21:21 08/18/19 21 Diastolic B/P less than 80 mm Hg completed Fabiola Olivia [place] [facility] 08/18/2020 09:21:25 08/18/19 21 Medication Reconcilliation completed Fabiola Galiciacy [place] [facility] 08/18/2020 09:21:30 08/18/19 21 Functional Status Assessed completed Fabiola Baker [place] [facility] 08/18/2020 09:02:59 Hysterectomy completed Fab[place]ola Galiciacy [place] [facility] 06/18/2020 11:56:07 Salpingo-oophorect muriel, Bilateral completed Fab[place]ola Baker [place] - [facility] 06/18/2020 11:56:16 graft of skin to skin completed Fabiola Galiciacy [place] - [facility] 06/18/2020 11:59:27 biopsy completed Lorena Stears [place] - [facility] 02/24/2023 11:04:30 Imaging Results None recorded. Procedure Notes None recorded. Medical Equipment None Reported. Allergies Allergen ID Allergen Name Allergen Category Reaction Reaction Severity Criticality Documentation Date Start Date Code Code System Note Provider Name and Address Organization Details Recorded Time 586316 lactose food,medi cation Not available Not available [...] 5 161.29 cm 18 /min 21.3 kg/m2 83260.2 7 g 97.9 [degF] 64 /min 98 % 126/80 mm[Hg] Lorena Stears [place] - [facility] 5 16:48:49 Date Recorded Body height Body mass index (BMI) Body weight Heart rate Oxygen saturation Respiratory rate Pain severity - 0-10 verbal numeric rating [Score] - Reported Systolic And Diastolic Provider Name and Address Organization Details Last Updated DateTime 4 161.29 cm 21.3 kg/m2 14200.2 7 g 74 /min 98 % 18 /min 0 128/80 mm[Hg] Yomaira Caicedo [place] - [facility] 4 11:07:50 Date Recorded Body height Heart [...] 0 160/82 mm[Hg] 178/82 mm[Hg] Yomaira Caicedo [facility] 4 08:59:18 Date Recorded Body height Respiratory rate Body mass index (BMI) Body weight Body temperature Oxygen saturation Heart rate Systolic And Diastolic Provider Name and Address Organization Details Last Updated DateTime 5 161.29 cm 18 /min 22 kg/m2 31843.6 4 g 97.8 [degF] 98 % 58 /min 130/74 mm[Hg] Lorenaalexandria Canelacarmela [place] - [facility] 5 13:56:12 Date Recorded Body height Body mass index (BMI) Body weight Heart rate Oxygen saturation Respiratory rate Pain severity - 0-10 verbal numeric rating [Score] - Reported Systolic And Diastolic Provider Name and Address Organization Details Last Updated DateTime 4 161.29 cm 21.5 kg/m2 37565.2 6 g 63 /min 98 % 18 /min 0 128/80 mm[Hg] Yomaira Caicedo [facility] 4 11:01:49 Social History Question Answer Notes LastModified by Organizat ion Details LastModified Time Tobacco Smoking Status Never Smoker Fabiola Baker shanti, [facility] 06/18/2020 11:57:17 Do You Have An Advance [...] Have You Had Close Contact With A Laboratory-[facility] med COVID-19 While That Case Was Ill? [...] Or The Highest Degree You Have Received? [id number] Information not available 02/08/2022 Have There Been [...] Do You Have A Medical Power Of Cracking Still Operator? Yes Clemencia- Daughter Is Medical Power Of Cracking Still Operator Information not available 11/21/2022 What Was The [...] anxious, or unable to sleep at night)? [id number] Information not available 02/08/2022 Do you have difficulty concentrating, remembering or making decisions? Yes Information no t available 04/18/2025 Family History Relationship Description Onset Age of this Age Resolved Age Notes LastModified by Organization Details LastModified Time Mother Diabetes mellitus mstacy Not available 2019 11:56:46 Medical History Condition Response Hospitalizations Y Ovarian Cancer Y Chicken Pox Y Gynecological History Statement/Question [...] Influenza, high-dose, quadrivalent, PF 2 completed Gita Hameed, [employer] [address], [place], [address], [place] [facility] 06/02/2022 13:15:46 COVID-19, mRNA, LNP-S, bivalent, PF, 50 mcg/0.5 mL or 25mcg/0.25 mL dose 2 completed Gita Hameed, [employer] [address], [place], [address], [place] [facility] 06/02/2022 13:15:46 Influenza, high-dose, trivalent, PF 4 completed [place] [facility] 05/09/2024 17:26:47 Influenza, split virus, quadrivalent, preservative 0 completed Not [facility] 06/01/2023 10:21:35 COVID-19, mRNA, LNP-S, PF, 100 mcg/0.5mL dose or 50 mcg/0.25mL dose 1 completed Not Available [facility] 06/01/2023 10:21:35 COVID-19, mRNA, LNP-S, PF, 100 mcg/0.5mL dose or 50 mcg/0.25mL dose 1 completed Not Available [facility] 06/01/2023 10:21:35 COVID-19, mRNA, LNP-S, PF, 100 mcg/0.5mL dose or 50 mcg/0.25mL dose 1 completed Yomaira moser, [place] - [facility] 11/21/2022 11:44:45 COVID-19, mRNA, LNP-S, PF, 100 mcg/0.5mL dose or 50 mcg/0.25mL dose 1 completed DUKE Orell[place] - [facility] 11/21/2022 11:44:45 COVID-19, mRNA, LNP-S, PF, 100 mcg/0.5mL dose or 50 mcg/0.25mL dose 1 completed YomairaDUKE Barajas - [facility] 11/21/2022 11:44:45 Past Encounters Encounter ID Performer Location Encounter Start Date Encounter Closed Date Diagnosis/Indication Diagnosis SNOMED-CT Code Diagnosis ICD10 Code Diagnosis IMO Codes Diagnosis Note [id number] [facility] [place] [address] [facility] [place] [address] 06/18/2020 11:30:47 06/18/2020 12:21:55 Dysuria 06893242 R30.9 [id number] MD Rubens Aguileradarrell [place] [address] [place] [address] 08/18/2020 08:49:05 08/18/2020 10:16:36 Adult health examination 718133612 Z00.00 Depression screening 171 082668 Z13.89 Examinatio n of blood pressure 301910342 Z01.30 Diet education 56526969 Z71.3 Counseling 473754700 Z71 .82 Exercise counseling . Patient encouraged to exercise 30 minutes 5 days a week. [facility] for falls 928590523 Z91.81 STEADI FAST screening score of ___2__. Advance care planning 71 8319989 Z71.89 Finding of body mass index 380383920 Z68.24 Screening mammography 24 504561 Z12.31 Menopausal syndrome 1237 25347 N95.9 Chronic diarrhea 3788633 09 K52.9 Unchanged Dysuria 27950564 R30.9 some mild persistent symptoms; had uti in june treated with bactrim [id number] MD Rubens Aguileradarrell [facility] [address] [facility] [place] [address] 12/10/2020 11:12:55 12/10/2020 13:27:47 Dysuria 37663522 R30.9 had uti in june treated with bactrim [id number] Tania Prieto MD [facility] [address] [place] [address] 04/05/2021 07:54:26 04/05/2021 08:52:31 Osteoporosis 98394192 M81.0 continue calcium and vitamin D supplement ation Blood pres sure above reference range 16650565 R03.0 Change in skin lesion 39 0537384 L98.9 [id number] Radha Potter APRN [place] [address] [place] [address] 07/07/2021 13:22:04 07/07/2021 14:49:08 Senile hyperkeratosis 235073148 L82.1 Cryo applied to right forehead - tolerated well Melanocytic nevus 974241 001 D22.9 [id number] [facility] [address] 02/08/2022 11:47:55 02/08/2022 12:16:42 Diverticulosis of colon 082636750 K57.30 Screening mammography 24 180916 Z12.31 Chronic diarrhea 7397380 09 K52.9 medication refilled [id number] Gita Hameed [address] [address] 05/23/2022 09:54:55 05/23/2022 10:26:47 Screening for malignant neoplasm of breast 346633396 Z12.39 Screening for malignant neoplasm of colon 675420142 Z12.11 Chronic diarrhea 8637384 09 K52.9 medication refilled [id number] Gita Hameed [address] [address] 06/02/2022 11:36:11 06/02/2022 12:12:58 Influenza vaccine needed 7013951088 106 Z23 Administra tion of SARS-CoV-2 antigen vaccine 738280222 Z23 Acute urin isael tract infection 593543600 N39.0 External hordeolum 97457 08 H00.019 warm compress, call eye [id number] Gita Hameed [address] [address] 11/21/2022 11:30:07 11/21/2022 12:07:50 Poor short-term memory 343739368 R41.3 pt was told to remember 3 items cat,ball and batafter one min- pt responded- cat,ball, lanternaft er 5 mins- pt responded cat,ball, lantern Pain of ri ght hip joint 3750758180 31135 M25.551 motrin as needed for pain [id number] Gita Hameed [address] [address] 01/12/2023 09:52:39 01/12/2023 10:22:04 Acute urinary tract infection 781766299 N39.0 Vitamin D deficiency 347 24709 E55.9 start otc vit d supplement Anemia 568333140 D64.9 Hemoglobin below reference range 353175365 D64.9 Impaired f asting glycemia 100806327 R73.01 [id number] Gita Hameed [address] [address] 01/23/2023 09:00:38 01/23/2023 09:53:24 Acute urinary tract infection 445610957 N39.0 Impaired f asting glycemia 545417488 R73.01 [id number] Gita Hameed [address] [address] 01/27/2023 09:02:57 01/27/2023 09:37:16 Cobalamin deficiency 520853390 E53.8 Mass of pancreas 7088008 [address] robles office has been notified and will work her in schedule [facility] [id number] Gita Hameed [address] [address] 02/24/2023 10:41:21 02/24/2023 11:24:52 History of malignant neoplasm of ovary 731711489 Z85.43 Mass of pancreas 1403791 00 K86.89 keep appointmen t with gi for follow up and colonoscop y [id number] Gita Hameed [address] [address] 03/10/2023 09:08:42 03/10/2023 10:30:16 Cobalamin deficiency 448307880 E53.8 Mild dehydration 9704792 119 108 E86.0 will do iv fluids and see if this improves pt memory to her baseline. pt needs to follow back up with neurology. pt states she feels better after the fluids Fatigue 33459262 R53.83 [id number] Gita Hameed [address] [address] 06/01/2023 10:15:13 06/01/2023 11:20:11 Acute urinary tract infection 269157362 N39.0 [id number] Gita Hameed [address] [address] 12/28/2023 14:46:05 12/28/2023 15:43:17 Acute urinary tract infection 769464402 N39.0 encourage fluid intakeretr un if symptoms worsen or no improvemen t [id number] [facility] [address] [address] 01/26/2024 09:41:04 01/26/2024 10:23:56 Acute urinary tract infection 872241248 N39.0 encourage fluid intakeretu rn if symptoms worsen or no improvemen ttake full prescripti on of antibiotic s [id number] [facility] [address] 02/19/2024 10:52:28 02/19/2024 11:50:55 Acute urinary tract infection 002907171 N39.0 encourage fluid intakeretu rn if symptoms returnfoll ow up from finishing antibiotic s, urine test done. Edema of l ower extremity 627312135 R60.0 patient requesting electrolyt es be checked, educated on use of compressio n stockings if going to be on feet or in a car for a prolonged period of time. Memory impairment 440694 006 R41.3 Patient and daughter states that they will make an appointmen t with their Neurologis t, Dr. Chery in [place], [place]. [id number] Gita Hameed [address] [address] 04/02/2024 08:22:29 04/02/2024 09:43:57 Syncope and collapse 991436691 R55 stayed at bedside monitoring pt until ems arrivedrep ort given to ems and pt transferre d to [facility]. [id number] Gita Hameed [address] [address] 05/09/2024 10:45:36 05/09/2024 11:46:49 Influenza vaccine needed 3348971103 106 Z23 Memory impairment 387203 [address] by self at this time- follow up with memory clinic today [id number] Gita Hameed [address] [address] 12/23/2024 16:12:11 12/23/2024 17:18:53 Edema of lower extremity 704366252 R60.0 25345 labsif worsen return or be seen in ed Memory impairment 649986 006 R41.3 31968 [id number] [facility] [address] [address] 04/18/2025 13:50:52 04/18/2025 14:49:06 Alzheimer's disease 55500222 F02.80 G30.9 63034 Dementia 56256036 F03.90 [id number] Health Concerns Section Related Observation LastModified by Organization Detai ls LastModified Time None Recorded Concern Status LastModified by Organization Details LastModified Time None Recorded Advance Directives Directive N: Payers Insurance Date Sequence Insurance Name Policy Number Policy Vang Covered Member ID Vang Member ID Guarantor Name 04/18/2025 2 [place] Charleen Iyer [id number] Charleen Iyer 04/18/2025 1 [facility] (PPO) [id number] Charleen Iyer [id number] Charleen Iyer 06/10/2025 [place] Charleen Iyer [id number] Charleen Iyer 06/10/2025 N[facility] - [place]IC[place] - [facility] (MEDICARE) Charleen Iyer [id number] Charleen Iyer 06/10/2025 1 [facility] (MEDICARE REPLACEMENT/A DVANTAGE - PPO) [id number] Charleen Iyer [id number] Charleen Iyer 04/18/2025 2 [employer] (PPO) Charleen Iyer [id number] Charleen Iyer Notes Date Note Type Note Provider Name and Address Organization Details Recorded Time 02/19/2024 text/html ROS as noted in the HPI 74 yr old female presents for a follow up after uti. Daughter states her memory is getting worse and would like to go back to the neurologist, and her ankles swelled this weekend after attending a wedding. Gita Hameed APRN [address], [place], [address], [employer] - [facility] 02/19/2024 11:40:27 04/02/2024 text/html ROS [...] only c/o is rt hip pain Gita Hameed APRN [address], [place], [address], [employer] - [facility] 04/02/2024 09:40:43 05/09/2024 text/html ROS as noted in the HPI 74 yr old female presents for a flu shot. daughter also concerned about mom driving. has appointment with mental health clinic for memory Gita Hameed APRN [address], [place], [address], [employer] - [facility] 06/03/2024 14:25:11 12/23/2024 text/html 74 year old female who presents to the office today with concerns of swollen ankles and legs x 2-3 weeksshort term memory getting worse-was seen at the memory clinic - does not care to have anymore work up at this time Gita Hameed APRN [address], [place], [address], [place] [facility] 12/23/2024 17:13:04 04/18/2025 text/html 75 year old female who presents to the office today with concerns ofdementia and alzheimer's, patients children would like paperwork and h&P completed for [facility] Monday[facility]-25 Gita Hameed APRN [address], [place], [address], [place] [facility] 04/18/2025 14:56:07 OBGyn Episode No OBEpisode recorded.
--- OUTSIDE RECORDS SUMMARY | 2025-07-27 16:38 | XMS_ITS | Clinical Summary ---
Author Organization [facility] Address [address] [place] [address] Care Team Providers Care Global Sales Director Name Role Phone Gita Hameed PROFESSOR [employer] INDUSTRIAL [employer]CHN[employer]Y Primary Care Provider [phone] Allergies Active Allergy Reactions Criticality Noted Date [...] or (1 - 1-dose 75+ series) 02/05/2024 [id number] Vaccine (2024- season) 2025 06/02/2022, 06/12/2021, 10/19/2020, [...] patient's age to complete this topic Insurance [facility] MEDICARE Care Teams Global Sales Director Relationship Specialty Start Date End Date Gita Hameed APRN [address] [place] [address] PCP - General 05/09/24
[2025-07-27 20:00] VITALS: BP 142/69; PULSE 74; RESP 17; TEMP 36.7; O2SAT 99
[2025-07-28 04:00] VITALS: BP 114/56; PULSE 72; RESP 14; TEMP 36.8; O2SAT 95; BMI 21.7
[2025-07-28 06:00] LABS: Hematocrit 34.0 % (37.0-47.0); Hemoglobin 11.0 g/dL (12.2-16.2); Immature Granulocytes % 0.2 %; Mean Corpuscular HGB Conc 32.4 g/dL (31.8-35.4); Mean Corpuscular Hemoglobin 28.9 pg (27.0-31.2); Mean Corpuscular Volume 89.5 fl (81-99); Nucleated Red Blood Cells % 0 %; Platelet Count 210 K/mm3 (142-424); Red Blood Count 3.80 M/mm3 (4.20-5.40); Red Cell Distribution Width-SD 43.3 fL; White Blood Count 4.2 K/mm3 (4.8-10.8)
[2025-07-28 06:09] LABS: Albumin Level 3.4 g/dl (3.5-5.0); Chloride 106 mmol/L (98-107); Potassium 4.5 mmoL/L (3.5-5.1); Sodium 137 mmol/L (136-145)
[2025-07-28 06:12] LABS: Alanine Aminotransferase 9 U/L (12-78); Albumin/Globulin Ratio 1.3 (1.1-1.8); Alkaline Phosphatase 54 U/L (38-126); Anion Gap 6.5 mEq/L (5-15); Aspartate Amino Transferase 19 U/L (14-36); Bilirubin,Total 0.2 mg/dl (0.2-1.3); Blood Urea Nitrogen 25 mg/dl (7-17); Carbon Dioxide 29 mmol/L (22.0-30.0); Creatinine Clearance Estimated 44 mL/min (50-200); Creatinine,Serum 0.90 mg/dl (0.52-1.04); Estimated Glomerular Filt Rate 61 ml/min (>60); GFR (African American) 74 ML/MIN (>60); Globulin 2.6 g/dL (1.3-3.2); Total Protein,Serum 6.0 g/dl (6.3-8.2)
[2025-07-28 06:13] LABS: Calcium 9.1 mg/dl (8.4-10.2); Glucose 96 mg/dl (74-100)
--- NOTE | 2025-07-28 07:40 | SW/DCPLANNER ---
Addendum entered by [facility] 07/30/25 09:58: Patient has been approved SNF level of care and will discharge to [place] today. Addendum entered by [facility] 07/29/25 15:15: Patient's insurance has requested peer to peer. CM will notify [facility]. Addendum entered by [facility] 07/29/25 15:06: Bill Machuca and Qiana spoke w/ patient and her daughter regarding returning to [facility] vs SNF due to ambulating 120 ft. After watching patient attempting to ambulate to bathroom decision was made to continue to work on auth. CM will continue to follow up. Addendum entered by [facility] 07/29/25 12:28: Per Abner auth is still pending at this time. Addendum entered by [facility] 07/28/25 11:07: Per Abner cortes/ Romulo Muniz auth has been started for this patient. Original Note: Patient currently resides at [facility]. Per PT patient will need to return skilled. Updated patient information faxed to Abner cortes/ Romulo Muniz. Per Abner auth will be started today once all patient information is received. CM will continue to follow up.
[2025-07-28 07:50] VITALS: BP 121/59; PULSE 69; RESP 16; TEMP 36.6; O2SAT 98
--- NOTE | 2025-07-28 08:33 | HMH.PHAAMS2 ---
- Antimicrobial Stewardship Review culture & sensitivity review Stewardship interventions: culture & sensitivity review, reviewed - no change Comments: PATIENT ON ROCEPHIN FOR UTI, URINE CX POSITIVE FOR E COLI SENSITIVE TO ROCEPHIN ON DAY 4/5 OF THERAPY PER MD NOTE, WBC DOWN TO 4.2K/mm3, REMAINS AFEBRILE.
--- NOTE | 2025-07-28 08:51 | P.PN_ITS ---
<Statement entered by Damien Urias MD - 07/28/25 11:36> Rounded on patient after nurse practitioner. Personally examined and interviewed patient. Agree with exam findings and care plan as documented. Subjective *Date: 07/28/25 *Time: 08:51 Interval history: Patient looks well today, interactive with discussion. Complains of mild to moderate pain with movement. Alert and oriented to situation, self, place. Daughter at bedside. Continuing Rocephin for UTI?day 4 of 5. PT/OT recommended skilled placement, patient currently resides at [facility], will transfer to skilled, awaiting auth at this time. Working with PT/OT. Medical Exam Vital signs and Labs for Last 24 Hours: Vital Signs Temp Pulse Resp BP Pulse Ox O2 Del Method 07/28/25 07:50 97.8 F 69 16 121/59 L 98 Room Air 07/28/25 06:38 Room Air 07/28/25 05:00 Room Air 07/28/25 04:00 98.2 F 72 14 114/56 L 95 Room Air 07/28/25 03:00 Room Air 07/28/25 01:00 Room Air 07/27/25 23:00 Room Air 07/27/25 20:56 Room Air 07/27/25 20:00 Room Air 07/27/25 20:00 98.0 F 74 17 142/69 H 99 Room Air 07/27/25 18:59 Room Air 07/27/25 17:00 Room Air 07/27/25 15:54 98 F 66 16 161/73 H 97 Room Air 07/27/25 15:00 Room Air 07/27/25 13:00 Room Air 07/27/25 11:00 Room Air 07/27/25 09:00 Room Air Intake and Output 07/27/25 07/28/25 07/28/25 23:59 07:59 15:59 Intake Total 200 / 200 Output Total 0 / 200 Balance 0 / 850 200 / 200 Intake: Intake, Oral Amount 200 / 200 Output: Output, Urine Amount 0 / 200 Other: Number of Unmeasured Voids 1 Weight 57.788 kg Patient Weight 07/28/25 23:59 Weight 57.788 kg Laboratory Results - last 24 hr 07/28/25 05:29: WBC 4.2 L, RBC 3.80 L, Hgb 11.0 L, Hct 34.0 L, MCV 89.5, MCH 28.9, MCHC 32.4, RDW 13.1, Plt Count 210, MPV 11.6 H, Neut % (Auto) 53.0, Lymph % (Auto) 33.1, [place] % (Auto) 9.0, Eos % (Auto) 3.3, Baso % (Auto) 1.4, Neut # (Auto) 2.2, Lymph # (Auto) 1.4, [place] # (Auto) 0.4, Eos # (Auto) 0.1, Baso # (Auto) 0.1, Sodium 137, Potassium 4.5, Chloride 106, Carbon Dioxide 29, Anion Gap 6.5, BUN 25 H D, Creatinine 0.90, Estimated Creat Clear 44, Estimated GFR 61, Est GFR ( Amer) 74, Glucose 96, Calcium 9.1, Total Bilirubin 0.2, AST 19, ALT 9 L, Alkaline Phosphatase 54, Total Protein 6.0 L, Albumin 3.4 L, Globulin 2.6, Albumin/Globulin Ratio 1.3 I & O for Labs for Last 24 Hours: Intake & Output 07/25/25 07/26/25 07/27/25 07/28/25 23:59 23:59 23:59 23:59 Intake Total 100 / 250 720 / 920 850 / 1050 200 / 200 Output Total 75 / 75 675 / 675 200 / 200 Balance 25 / 175 45 / 245 650 / 850 200 / 200 Weight 55.293 kg 55.111 kg 56.109 kg 57.788 kg Microbiology Reports for the Last 24 Hours: Microbiology 07/25/25 14:51 Urine,Clean Catch Urine Culture - Final Escherichia coli Constitutional: Present no acute distress, average body habitus and cooperative Head: Present atraumatic and normocephalic Neck: Present normal inspection Respiratory: Present CTA bilaterally and normal respiratory effort; Absent rhonchi, wheezes or crackles Cardiac: Present Reg Rate and Rhythm GI: Present soft and normal bowel sounds; Absent distention or tenderness Rectal (female): Present deferred (female): Present deferred Extremities: Present normal inspection and full ROM; Absent edema Skin: Present intact and dry; Absent erythema or rash Neuro: Present Grossly Intact, alert, awake and moves all extremities Assessment and Plan *Assessment and plan (1) Compression fracture of L3 vertebra: Status: Acute Category: Medical Code(s): S32.030A - Wedge compression fracture of third lumbar vertebra, initial encounter for closed fracture (2) UTI (urinary tract infection): Status: Acute Qualifiers: Urinary tract infection type: acute cystitis Category: Medical Code(s): N39.0 - Urinary tract infection, site not specified (3) Dementia: Status: Chronic Qualifiers: Dementia type: Alzheimer's Alzheimer's disease onset: late onset Dementia severity: mild Dementia behavioral or psychological symptom: without behavioral, psychotic, or mood disturbance or anxiety Qualified Code(s): G30.1 - Alzheimer's disease with late onset; F02.A0 - Dementia in other diseases classified elsewhere, mild, without behavioral disturbance, psychotic disturbance, mood disturbance, and anxiety Category: Medical Code(s): F03.90 - Unspecified dementia, unspecified severity, without behavioral disturbance, psychotic disturbance, mood disturbance, and anxiety Plan Charleen Iyer is a 75-year-old female with a history of presumed dementia who presented to the ED with acute onset low back pain. Patient lives at [facility] and was being checked on by her daughter when patient was having significant low back pain and was brought to the ER for further evaluation. She initially denied recent falls to the ED, but upon further inquiry she endorsed maybe a fall with son. Patient's history seems to be tenuous given underlying dementia. Denied fever/chills, abdominal pain, urinary symptoms, constipation/diarrhea. Workup in the ED significant for lab UA grossly abnormal, lumbar CT revealing L3 superior endplate compression fracture, favored to be chronic. There was some fat attenuation around the pancreas noted on CT abdomen, but lipase normal. Left lower lobe 4 mm nodule noted on thoracic CT. Patient continued to endorse significant low back pain, and given significant confusion ED provider cussed the case with hospital medicine for admission and further management and evaluation of patient's condition. Pain continues to be stable without movement, endorses mild to moderate pain with movement. Therapy evaluated, recommend SNF. Patient currently resides at [facility], authorization pending for skilled placement at [facility] at this time. Case management assisting with placement. Treating UTI. Problems addressed as follows: #Low back pain #L3 compression fracture - Patient presented with acute low back pain, found to have L3 superior endplate compression fracture on CT. Unclear if patient had a fall. - At this time, patient seems to have pain control with minimal movement. - PT and OT evaluated and recommend SNF. Per PT/OT recommendation it is unlikely a TLSO brace would improve her mobility, a brace may help with pain control, patient states she does not feel she needs a brace at this time. - Continue Tylenol 650 every 4 hours as needed, hydrocodone 5 to 10 mg as needed every 4 hours for moderate to severe breakthrough pain. Toradol 15 mg IV every 6 hours for moderate to severe pain. Monitor for toxicity. - Continue docusate/senna 1 tab twice daily, additionally added MiraLAX as needed. Patient did have bowel movement yesterday. #UTI due to fluoroquinolone resistant E. coli: Urine analysis grossly abnormal. Urine growing E. coli sensitive to cephalosporins. Resistant to jaime quinolones. Ceftriaxone IV 1 g day 4 of 5. #Dementia: Continue with a day/night routine, reorientation by family. Minimal interaction after bedtime. Not on any meds at this time per chart review Full code DVT prophylaxis: Lovenox 40 mg Regular diet
[2025-07-28] MEDS: CEFTRIAXONE 1 GM 1 GM in 0.9 % SODIUM CHLORIDE 50 ML IV (08:54)
--- NOTE | 2025-07-28 09:47 | DIET.NUTRFU ---
RD interviewed patient, her and family present have no dietary concerns. Wt stable, intake fair to good and LBM 07/27. Family indicated she eats well at [facility] and will be returning when ready.
--- NOTE | 2025-07-28 09:51 | HMH.OTEV ---
OT Evaluation Rehab OT IP Evaluation Start: 07/25/25 19:17 Freq: ONCE Status: Active Protocol: Document 07/28/25 09:43 [facility] (Rec: 07/28/25 09:50 [facility] [id number]) Rehab OT IP Assessment Subjective History 75-year-old female with a history of presumed dementia who presented to the ED with acute onset low back pain. [place] [facility] [place] on by her daughter when this morning patient was having significant low back pain and was brought to the ER for further evaluation. She initially denied recent falls to the ED, but upon further inquiry she endorsed maybe a fall with son. Patient's history seems to be tenuous given underlying dementia. Denies fever/chills, abdominal pain, urinary symptoms, constipation/diarrhea. Workup in the ED significant for lab UA grossly abnormal, lumbar CT revealing L3 superior endplate compression fracture, favored to be chronic. There was some fat attenuation around the pancreas noted on CT abdomen, but lipase normal. Left lower lobe 4 mm nodule noted on thoracic CT. Patient was having significant low back pain, and given significant confusion ED provider discussed case with me I decided to admit patient for further evaluation and management. On my evaluation after arriving on the floor, patient was lying in bed calmly without acute distress. No back pain at that time. Also, confusion per granddaughter at bedside is baseline. Subjective [place] to being in the hospital[place] [facility] [place] Family present during therapy evaluation. Pt claims she is normally independent with dressing and feeding. Family reports she does need assistance with bathing due to safety concerns. She is normally independent with functional transfers and no RW or ADL equipment. Objective Patient Orientation Person,Birthday Right Upper WFL Extremity Gross ROM Left Upper Extremity WFL Gross ROM Bed Mobility bed mobility-scooting,bed mobility - supine/sit Assist Level Minimal x 1 (25% assist) Transfer Training Sit/Stand Transfer Assist Level Minimal x 1 (25% assist) Lower Body Dressing Moderate Assistance Ability Rehab OT IP prob,goals,plan Problems Date of Evaluation: 07/28/25 OT IP Problems Bed Mobility,Transfers,Balance,Self care,Safety Rehab Potential Rehab Potential Good Equipment Needs Assistive Devices Rolling / Wheeled Walker Plan OT intervention Plan Bed Mobility,Transfers,Balance,Self care,Safety, Therapeutic Exercise OT Plan Frequency Daily Duration LOS Discharge Goals Bed Mobility Ability Standby Assistance Sit to Stand Chair Contact Guard/Hand Hold Transfer Ability Chair Transfer Contact Guard/Hand Hold Ability Chair Transfer Sit to/from Ambulatory Technique Chair Transfer Rolling Walker Assistive Devices Lower Body Dressing Minimal Assistance Ability Upper Body Dressing Contact Guard Ability Performing Toilet Contact Guard Hygiene Ability Overall Commode/ Contact Guard Toilet Transfer Ability Commode/Toilet Sit to/from Ambulatory Transfer Technique Discharge Plan OT Discharge Plan Pt is currently most appropriate for short term rehab placement once medically stable for d/c. She does require slightly more assistance with safety during transfers and ADL tasks than her baseline. Her dementia complicates all aspects of her care. She may be able to return to [facility] if she meets all therapy goals prior to d/c. Skilled acute therapy is indicated to improve transfer ability and ADL independence in order to return pt to [facility] Eval Complexity Eval Charge Codes 45500 - Moderate Complexity PHYSICIAN CERTIFICATION: I certify the specified therapy services for Charleen Iyer are required, authorized, and reviewed every 30 days.
[2025-07-28 16:00] VITALS: BP 149/63; PULSE 70; RESP 16; TEMP 36.8; O2SAT 98
[2025-07-28] MEDS: HYDROCODONE/APAP 5/325 MG TABLET 2 TAB PO (16:04)
--- NOTE | 2025-07-28 18:11 | PC.NURSE ---
patient a/ox2, remains on room air. c/o lower back pain once this shift, treated per OCT. ambulated in hallway with PT. patient having BMs. family at bedside, call light within reach, no further requests at this time.
[2025-07-28 19:55] VITALS: BP 151/72; PULSE 75; RESP 16; TEMP 36.4; O2SAT 97
[2025-07-29 04:00] VITALS: BP 138/80; PULSE 72; RESP 16; TEMP 36.6; O2SAT 96; BMI 21.7
[2025-07-29 05:55] LABS: Hematocrit 33.0 % (37.0-47.0); Hemoglobin 10.9 g/dL (12.2-16.2); Immature Granulocytes % 0.3 %; Mean Corpuscular HGB Conc 33.0 g/dL (31.8-35.4); Mean Corpuscular Hemoglobin 29.2 pg (27.0-31.2); Mean Corpuscular Volume 88.5 fl (81-99); Nucleated Red Blood Cells % 0 %; Platelet Count 223 K/mm3 (142-424); Red Blood Count 3.73 M/mm3 (4.20-5.40); Red Cell Distribution Width-SD 43.1 fL; White Blood Count 3.8 K/mm3 (4.8-10.8)
[2025-07-29 06:05] LABS: Chloride 108 mmol/L (98-107)
[2025-07-29 06:06] LABS: Albumin Level 3.5 g/dl (3.5-5.0); Potassium 4.0 mmoL/L (3.5-5.1); Sodium 138 mmol/L (136-145)
[2025-07-29 06:08] LABS: Anion Gap 6.0 mEq/L (5-15); Blood Urea Nitrogen 25 mg/dl (7-17); Carbon Dioxide 28 mmol/L (22.0-30.0); Creatinine Clearance Estimated 44 mL/min (50-200); Creatinine,Serum 0.80 mg/dl (0.52-1.04); Estimated Glomerular Filt Rate 70 ml/min (>60); GFR (African American) 84 ML/MIN (>60)
[2025-07-29 06:09] LABS: Alanine Aminotransferase 11 U/L (12-78); Albumin/Globulin Ratio 1.4 (1.1-1.8); Alkaline Phosphatase 54 U/L (38-126); Aspartate Amino Transferase 23 U/L (14-36); Bilirubin,Total 0.2 mg/dl (0.2-1.3); Calcium 9.5 mg/dl (8.4-10.2); Globulin 2.5 g/dL (1.3-3.2); Glucose 84 mg/dl (74-100); Total Protein,Serum 6.0 g/dl (6.3-8.2)
[2025-07-29 08:00] VITALS: BP 114/43; PULSE 78; RESP 16; TEMP 36.6; O2SAT 94
[2025-07-29] MEDS: CEFTRIAXONE 1 GM 1 GM in 0.9 % SODIUM CHLORIDE 50 ML IV (08:02)
[2025-07-29] MEDS: HYDROCODONE/APAP 5/325 MG TABLET 2 TAB PO (09:38)
--- NOTE | 2025-07-29 13:44 | P.PN_ITS ---
<Statement entered by Damien Urias MD - 07/29/25 14:56> Rounded on patient after nurse practitioner. Personally examined and interviewed patient. Agree with exam findings and care plan as documented. Subjective *Date: 07/29/25 *Time: 13:44 Interval history: Patient doing well this morning, daughter at bedside. Patient interactive with conversation. States she feels well. Currently awaiting placement at [facility] pending insurance authorization. Medical Exam Vital signs and Labs for Last 24 Hours: Vital Signs Temp Pulse Resp BP Pulse Ox O2 Del Method 07/29/25 13:00 Room Air 07/29/25 11:00 Room Air 07/29/25 08:44 Room Air 07/29/25 08:00 Room Air 07/29/25 08:00 98 F 78 16 114/43 L 94 L Nasal Cannula 07/29/25 05:00 Room Air 07/29/25 04:00 97.9 F 72 16 138/80 96 Room Air 07/29/25 03:00 Room Air 07/29/25 01:00 Room Air 07/28/25 23:00 Room Air 07/28/25 21:00 Room Air 07/28/25 20:00 Room Air 07/28/25 19:55 97.6 F 75 16 151/72 H 97 Room Air 07/28/25 18:58 Room Air 07/28/25 17:00 Room Air 07/28/25 16:00 98.2 F 70 16 149/63 H 98 Room Air 07/28/25 15:00 Room Air Intake and Output 07/28/25 07/29/25 07/29/25 23:59 07:59 15:59 Intake Total 220 / 880 50 / 820 770 / 820 Output Total 0 / 0 0 / 0 Balance 220 / 880 50 / 820 770 / 820 Intake: Intake, Oral Amount 220 / 830 50 / 770 720 / 770 Intake, Total IV Amount 50 / 50 Ceftriaxone 1 gm 1 gm In 0.9 % 50 / 50 Sodium Chloride 50 ml @ 100 mls /hr IV Q24H [facility] Rx#:[id number] Output: Output, Urine Amount 0 / 0 0 / 0 Other: Number of Unmeasured Voids 1 1 Weight 57.833 kg Patient Weight 07/29/25 23:59 Weight 57.833 kg Laboratory Results - last 24 hr 07/29/25 05:15: WBC 3.8 L, RBC 3.73 L, Hgb 10.9 L, Hct 33.0 L, MCV 88.5, MCH 29.2, MCHC 33.0, RDW 13.2, Plt Count 223, MPV 11.9 H, Neut % (Auto) 48.3, Lymph % (Auto) 36.0, [place] % (Auto) 9.4 H, Eos % (Auto) 4.4, Baso % (Auto) 1.6, Neut # (Auto) 1.9, Lymph # (Auto) 1.4, [place] # (Auto) 0.4, Eos # (Auto) 0.2, Baso # (Auto) 0.1, Sodium 138, Potassium 4.0, Chloride 108 H, Carbon Dioxide 28, Anion Gap 6.0, BUN 25 H, Creatinine 0.80, Estimated Creat Clear 44, Estimated GFR 70, Est GFR ( Amer) 84, Glucose 84, Calcium 9.5, Total Bilirubin 0.2, AST 23, ALT 11 L, Alkaline Phosphatase 54, Total Protein 6.0 L, Albumin 3.5, Globulin 2.5, Albumin/Globulin Ratio 1.4 I & O for Labs for Last 24 Hours: Intake & Output 07/26/25 07/27/25 07/28/25 07/29/25 23:59 23:59 23:59 23:59 Intake Total 720 / 920 850 / 1050 830 / 880 820 / 820 Output Total 675 / 675 200 / 200 0 / 0 0 / 0 Balance 45 / 245 650 / 850 830 / 880 820 / 820 Weight 55.111 kg 56.109 kg 57.788 kg 57.833 kg Constitutional: Present no acute distress, average body habitus and cooperative Head: Present atraumatic and normocephalic Neck: Present normal inspection Respiratory: Present CTA bilaterally and normal respiratory effort; Absent rhonchi, wheezes or crackles Cardiac: Present Reg Rate and Rhythm GI: Present soft and normal bowel sounds; Absent distention or tenderness Rectal (female): Present deferred (female): Present deferred Extremities: Present normal inspection and full ROM; Absent edema Skin: Present intact and dry; Absent erythema or rash Neuro: Present Grossly Intact, alert, awake and moves all extremities Assessment and Plan *Assessment and plan (1) Compression fracture of L3 vertebra: Status: Acute Category: Medical Code(s): S32.030A - Wedge compression fracture of third lumbar vertebra, initial encounter for closed fracture (2) UTI (urinary tract infection): Status: Acute Qualifiers: Urinary tract infection type: acute cystitis Category: Medical Code(s): N39.0 - Urinary tract infection, site not specified (3) Dementia: Status: Chronic Qualifiers: Dementia type: Alzheimer's Alzheimer's disease onset: late onset Dementia severity: mild Dementia behavioral or psychological symptom: without behavioral, psychotic, or mood disturbance or anxiety Qualified Code(s): G30.1 - Alzheimer's disease with late onset; F02.A0 - Dementia in other diseases classified elsewhere, mild, without behavioral disturbance, psychotic disturbance, mood disturbance, and anxiety Category: Medical Code(s): F03.90 - Unspecified dementia, unspecified severity, without behavioral disturbance, psychotic disturbance, mood disturbance, and anxiety Plan Charleen Iyer is a 75-year-old female with a history of presumed dementia who presented to the ED with acute onset low back pain. Patient lives at [facility] and was being checked on by her daughter when patient was having significant low back pain and was brought to the ER for further evaluation. She initially denied recent falls to the ED, but upon further inquiry she endorsed maybe a fall with son. Patient's history seems to be tenuous given underlying dementia. Denied fever/chills, abdominal pain, urinary symptoms, constipation/diarrhea. Workup in the ED significant for lab UA grossly abnormal, lumbar CT revealing L3 superior endplate compression fracture, favored to be chronic. There was some fat attenuation around the pancreas noted on CT abdomen, but lipase normal. Left lower lobe 4 mm nodule noted on thoracic CT. Patient continued to endorse significant low back pain, and given significant confusion ED provider cussed the case with hospital medicine for admission and further management and evaluation of patient's condition. Pain continues to be stable without movement, endorses mild to moderate pain with movement. Therapy evaluated, recommend SNF. Patient currently resides at [facility], authorization pending for skilled placement at [facility] [place] at this time. Case management assisting with placement. Treating UTI. Problems addressed as follows: #Low back pain #L3 compression fracture - Patient presented with acute low back pain, found to have L3 superior endplate compression fracture on CT. Unclear if patient had a fall. - At this time, patient seems to have pain control with minimal movement. - PT and OT evaluated and recommend SNF. Per PT/OT recommendation it is unlikely a TLSO brace would improve her mobility, a brace may help with pain control, patient states she does not feel she needs a brace at this time. - Continue Tylenol 650 every 4 hours as needed, hydrocodone 5 to 10 mg as needed every 4 hours for moderate to severe breakthrough pain. Toradol 15 mg IV every 6 hours for moderate to severe pain. Monitor for toxicity. - Continue docusate/senna 1 tab twice daily, additionally added MiraLAX as needed. Patient did have bowel movement yesterday. #UTI due to fluoroquinolone resistant E. coli: Urine analysis grossly abnormal. Urine growing E. coli sensitive to cephalosporins. Resistant to jaime quinolones. Ceftriaxone IV 1 g day 5 of 5. Patient denies urinary symptoms at this time. #Dementia: Continue with a day/night routine, reorientation by family. Minimal interaction after bedtime. Not on any meds at this time per chart review. Patient is alert and oriented x 4 today. Full code DVT prophylaxis: Lovenox 40 mg Regular diet
[2025-07-29 16:00] VITALS: BP 115/60; PULSE 64; RESP 16; TEMP 36.6; O2SAT 94
[2025-07-29 20:00] VITALS: BP 146/73; PULSE 70; RESP 16; TEMP 36.8; O2SAT 97
--- NOTE | 2025-07-30 01:53 | PC.NURSE ---
Pt alert to self, pleasantly confused. Daughter at bedside. Pt tolerating room air. Assist x1 to bathroom. Currently resting in bed with eyes closed. Respirations even and unlabored. Bed is low, locked, and call light is in reach.
[2025-07-30 04:00] VITALS: BP 157/97; PULSE 76; RESP 16; TEMP 36.8; O2SAT 98; BMI 21.9
[2025-07-30] MEDS: ACETAMINOPHEN 325MG TAB 650 MG PO (08:08)
[2025-07-30 08:26] LABS: Hematocrit 36.6 % (37.0-47.0); Hemoglobin 11.7 g/dL (12.2-16.2); Immature Granulocytes % 0.3 %; Mean Corpuscular HGB Conc 32.0 g/dL (31.8-35.4); Mean Corpuscular Hemoglobin 28.5 pg (27.0-31.2); Mean Corpuscular Volume 89.1 fl (81-99); Nucleated Red Blood Cells % 0 %; Platelet Count 239 K/mm3 (142-424); Red Blood Count 4.11 M/mm3 (4.20-5.40); Red Cell Distribution Width-SD 42.5 fL; White Blood Count 4.0 K/mm3 (4.8-10.8)
[2025-07-30 08:32] LABS: Albumin Level 3.9 g/dl (3.5-5.0); Chloride 106 mmol/L (98-107); Sodium 139 mmol/L (136-145)
[2025-07-30 08:33] LABS: Potassium 4.1 mmoL/L (3.5-5.1)
[2025-07-30 08:35] LABS: Alanine Aminotransferase 14 U/L (12-78); Albumin/Globulin Ratio 1.4 (1.1-1.8); Alkaline Phosphatase 62 U/L (38-126); Anion Gap 9.1 mEq/L (5-15); Aspartate Amino Transferase 36 U/L (14-36); Bilirubin,Total 0.3 mg/dl (0.2-1.3); Blood Urea Nitrogen 17 mg/dl (7-17); Carbon Dioxide 28 mmol/L (22.0-30.0); Creatinine Clearance Estimated 44 mL/min (50-200); Creatinine,Serum 0.80 mg/dl (0.52-1.04); Estimated Glomerular Filt Rate 70 ml/min (>60); GFR (African American) 84 ML/MIN (>60); Globulin 2.7 g/dL (1.3-3.2); Total Protein,Serum 6.6 g/dl (6.3-8.2)
[2025-07-30 08:36] LABS: Calcium 9.4 mg/dl (8.4-10.2); Glucose 90 mg/dl (74-100)
--- NOTE | 2025-07-30 09:53 | P.DS_ITS ---
<Statement entered by Damien Urias MD - 07/30/25 11:13> Rounded on patient after nurse practitioner. Agree with exam findings and care plan as documented. General Admission date:: 07/25/25 Discharge date: 07/30/25 HPI HPI HPI: Charleen Iyer is a 75-year-old female with a history of presumed dementia who presented to the ED with acute onset low back pain. Patient lives at [facility] [place] [place] and was being checked on by her daughter when this morning patient was having significant low back pain and was brought to the ER for further evaluation. She initially denied recent falls to the ED, but upon further inquiry she endorsed maybe a fall with son. Patient's history seems to be tenuous given underlying dementia. Denies fever/chills, abdominal pain, urinary symptoms, constipation/diarrhea. Workup in the ED significant for lab UA grossly abnormal, lumbar CT revealing L3 superior endplate compression fracture, favored to be chronic. There was some fat attenuation around the pancreas noted on CT abdomen, but lipase normal. Left lower lobe 4 mm nodule noted on thoracic CT. Patient was having significant low back pain, and given significant confusion ED provider discussed case with me I decided to admit patient for further evaluation and management. On my evaluation after arriving on the floor, patient was lying in bed calmly without acute distress. No back pain at that time. Also, confusion per granddaughter at bedside is baseline. Hospital Course Hospital Course Hospital Course: Charleen Iyer is a 75-year-old female with a history of presumed dementia who presented to the ED with acute onset low back pain. Patient lives at [facility] and was being checked on by her daughter when patient was having significant low back pain and was brought to the ER for further evaluation. She initially denied recent falls to the ED, but upon further inquiry she endorsed maybe a fall with son. Patient's history seems to be tenuous given underlying dementia. Denied fever/chills, abdominal pain, urinary symptoms, constipation/diarrhea. Workup in the ED significant for lab UA grossly abnormal, lumbar CT revealing L3 superior endplate compression fracture, favored to be chronic. There was some fat attenuation around the pancreas noted on CT abdomen, but lipase normal. Left lower lobe 4 mm nodule noted on thoracic CT. Patient continued to endorse significant low back pain, and given significant confusion ED provider discussed the case with hospital medicine for admission and further management and evaluation of patient's condition. Pain continues to be stable without movement, endorses mild to moderate pain with movement. Therapy evaluated, recommend SNF. Patient currently resides at [facility], approved for skilled therapy at [place], patient will be transitioning today. Hospital course as follows: #Low back pain #L3 compression fracture - Patient presented with acute low back pain, found to have L3 superior endplate compression fracture on CT. Unclear if patient had a fall. - At this time, patient seems to have pain control with minimal movement. Patient will be discharged home with Phelps 5/325 mg every 4 hours as needed for severe pain. - PT and OT evaluated and recommend SNF. Per PT/OT recommendation it is unlikely a TLSO brace would improve her mobility, a brace may help with pain control, patient states she does not feel she needs a brace at this time. - Consider bowel regimen if frequent opioid use for pain control is needed. #UTI due to fluoroquinolone resistant E. coli: On admission patient's urinalysis grossly abnormal. Urine growing E. coli sensitive to cephalosporins. Resistant to jaime quinolones. Patient received 5 days ceftriaxone IV during admission. Patient denies urinary symptoms at this time. #Dementia: Continue with a day/night routine, reorientation by family. Minimal interaction after bedtime. Patient continues to be alert and oriented, intermittent confusion. May be beneficial for patient to be evaluated by neurology in the outpatient setting. Total time spent on discharge 35 minutes in counseling, documentation, chart review, and direct care with patient. Exam Data for Last 24 hours Vital signs and Labs for Last 24 Hours: Temp Pulse Resp BP Pulse Ox O2 Del Method 98.2 F 76 16 157/97 H 98 Room Air 07/30/25 04:00 07/30/25 04:00 07/30/25 04:00 07/30/25 04:00 07/30/25 04:00 07/30/25 08:49 Laboratory Results - last 24 hr 07/30/25 07:12: WBC 4.0 L, RBC 4.11 L, Hgb 11.7 L, Hct 36.6 L, MCV 89.1, MCH 28.5, MCHC 32.0, RDW 13.0, Plt Count 239, MPV 11.7 H, Neut % (Auto) 59.3, Lymph % (Auto) 27.0, [place] % (Auto) 8.3, Eos % (Auto) 3.8, Baso % (Auto) 1.3, Neut # (Auto) 2.4, Lymph # (Auto) 1.1, [place] # (Auto) 0.3, Eos # (Auto) 0.2, Baso # (Auto) 0.1, Sodium 139, Potassium 4.1, Chloride 106, Carbon Dioxide 28, Anion Gap 9.1, BUN 17 D, Creatinine 0.80, Estimated Creat Clear 44, Estimated GFR 70, Est GFR ( Amer) 84, Glucose 90, Calcium 9.4, Total Bilirubin 0.3, AST 36 D, ALT 14 D, Alkaline Phosphatase 62, Total Protein 6.6, Albumin 3.9 D, Globulin 2.7, Albumin/Globulin Ratio 1.4 I & O for Last 24 hours: Intake & Output 07/27/25 07/28/25 07/29/25 07/30/25 23:59 23:59 23:59 23:59 Intake Total 850 / 1050 830 / 880 1180 / 1180 Output Total 200 / 200 0 / 0 200 / 200 Balance 650 / 850 830 / 880 980 / 980 Weight 56.109 kg 57.788 kg 57.833 kg 58.2 kg Constitutional Constitutional: no acute distress, average body habitus and cooperative *Routine HEENT Exam Head: Present normocephalic Eye: Present EOMI and PERRL ENT: Present mucous membranes moist *Routine Neck Exam Neck: Present supple; Absent lymphadenopathy *Routine Respiratory Exam Respiratory: Present CTA bilaterally and normal respiratory effort; Absent wheezes or crackles *Routine Cardiovascular Exam Cardiovascular: Present RRR; Absent murmur *Routine Abdominal Exam Abdominal: Present soft and normoactive bowel sounds; Absent tenderness *Routine Rectal Exam Patient deferred: visual exam *Routine Exam Patient deferred: external exam *Routine Extremities Exam Extremities: Present full ROM; Absent cyanosis, clubbing or edema *Routine Skin Exam Skin: Present intact, dry and warm; Absent rash *Routine Neurological Exam Neurological: Present alert and oriented X3 Routine Psychiatric Exam Psychiatric: Present normal affect and cooperative Results Data Completed and Pending Labs on day of discharge: Labs from last 24 hours 07/30/25 07:12 WBC 4.0 L RBC 4.11 L Hgb 11.7 L Hct 36.6 L MCV 89.1 MCH 28.5 MCHC 32.0 RDW 13.0 Plt Count 239 MPV 11.7 H Neut % (Auto) 59.3 Lymph % (Auto) 27.0 [place] % (Auto) 8.3 Eos % (Auto) 3.8 Baso % (Auto) 1.3 Neut # (Auto) 2.4 Lymph # (Auto) 1.1 [place] # (Auto) 0.3 Eos # (Auto) 0.2 Baso # (Auto) 0.1 Sodium 139 Potassium 4.1 Chloride 106 Carbon Dioxide 28 Anion Gap 9.1 BUN 17 D Creatinine 0.80 Estimated Creat Clear 44 Estimated GFR 70 Est GFR ( Amer) 84 Glucose 90 Calcium 9.4 Total Bilirubin 0.3 AST 36 D ALT 14 D Alkaline Phosphatase 62 Total Protein 6.6 Albumin 3.9 D Globulin 2.7 Albumin/Globulin Ratio 1.4 DS: Diagnosis Discharge Diagnosis (1) Compression fracture of L3 vertebra: Status: Acute Code(s): S32.030A - Wedge compression fracture of third lumbar vertebra, initial encounter for closed fracture (2) UTI (urinary tract infection): Status: Acute Code(s): N39.0 - Urinary tract infection, site not specified Qualifiers: Urinary tract infection type: acute cystitis (3) Dementia: Status: Chronic Code(s): F03.90 - Unspecified dementia, unspecified severity, without behavioral disturbance, psychotic disturbance, mood disturbance, and anxiety Qualifiers: Dementia type: Alzheimer's Alzheimer's disease onset: late onset Dementia severity: mild Dementia behavioral or psychological symptom: without behavioral, psychotic, or mood disturbance or anxiety Qualified Code(s): G30.1 - Alzheimer's disease with late onset; F02.A0 - Dementia in other diseases classified elsewhere, mild, without behavioral disturbance, psychotic disturbance, mood disturbance, and anxiety Meds Home Medications and Allergies Home Medications ?Medication ?Instructions ?Recorded ?Confirmed ?Type lactase 3,000 unit tablet (Lactaid) 6,000 unit PO BID 07/25/25 07/26/25 History hydrocodone 5 mg-acetaminophen 325 1 tab PO Q4HP PRN S evere Pain 07/30/25 Rx mg tablet (7-10) 3 days #17 tabs New Prescriptions to Start Prescriptions: hydrocodone-acetaminophen Trish Machuca Allergies Allergy/AdvReac Type Severity Reaction Status Date / Time milk AdvReac Nausea Verified 07/25/25 19:38 Discharge Plan Disposition Patient Disposition: Xfer SNF Condition: Good Discharge Order Discharge Orders: Discharge Order (Routine); Ordered 07/30/25 Ordered By: Trish Machuca Follow up Plan Prescriptions/Medication Reconciliation: New hydrocodone-acetaminophen 5-325 mg Tablet 1 tab PO Q4HP PRN (Reason: Severe Pain (7-10)) 3 Days Qty: 17 0RF Continued lactase [Lactaid] 3,000 unit Tablet 6,000 unit PO BID Problem Reconciliation Problems Reviewed?: Yes Patient Discharge Instructions ACTIVITY: Continue current activity and Ambulate as tolerated DIET: continue same diet Patient Instructions: Urinary Tract Infection, DI for Muscle Weakness, Transverse Process Fracture, Stop Light Infection Print Language: [place] Zealander Providers Primary Care Provider: Gita Hameed Admit Provider: Steve Dawson Attending Provider: Steve Dawson
== END 2025-07-30 11:22 | DRG 552 ==
LOC: ER 17:15 → 2ND 18:07
PROVIDERS: Physician Assistant; Admitting Provider Student in an Organized Health Care Education/Training Program; Emergency Provider Student in an Organized Health Care Education/Training Program; PCP Nurse Practitioner Family; Visit Provider Student in an Organized Health Care Education/Training Program
DX: S32.030A Wedge compression fracture of third lumbar vertebra, initial encounter for closed fracture (principal); Z16.23 Resistance to quinolones and fluoroquinolones; N30.00 Acute cystitis without hematuria; X58.XXXA Exposure to other specified factors, initial encounter; G30.1 Alzheimer's disease with late onset; F02.A0 Dementia in other diseases classified elsewhere, mild, without behavioral disturbance, psychotic disturbance, mood disturbance, and anxiety; B96.20 Unspecified Escherichia coli [E. coli] as the cause of diseases classified elsewhere; E87.6 Hypokalemia; D64.9 Anemia, unspecified
CPT/HCPCS: 36415; 70450; 71045; 72128; 72131; 74177; 80053; 81001; 83690; 83735; 85025; 87086; 87088; 87186; 93005; 97110; 97116; 97162; 97166; 97530; 97535; 99285; J0696; J1650; Q9967